=== PATIENT | female | born 1985 | race Hispanic/Latino ===

== ENCOUNTER 2024-03-22 13:34 | Emergency (ER) | payer SELFPAY ==
[2024-03-22 13:36] VITALS: BP 134/71; PULSE 79; RESP 18; TEMP 35.8; O2SAT 100
--- NOTE | 2024-03-22 15:22 | EX.ED.DYSGE1 ---
HPI History of Present Illness Chief Complaint: Complaint Informant: patient and spouse/S.O. Onset/Context/Timing Onset: Days (5) Context: Gradual Onset Timing: Continuous Quality: Cramping Location: Lower abdomen Worsened by: Nothing Relieved by: Nothing Narrative Narrative: Patient presents with lower abdominal pain and urinary tract infection for the past few days. states that the patient was seen here 4 days ago and was diagnosed with urinary tract infection. Patient was started on Keflex at that time states that patient was still having discomfort 3 days ago and went to [facility]. Patient had a CAT scan there which was normal. Patient was given hydrocodone for her pain. Patient has had minimal improvement despite taking antibiotics and analgesics. PFSH PFSH Medical History no medical history no medical history Home Medications nitrofurantoin monohydrate/macrocrystals 100 mg capsule 100 mg PO Q12 #10 CAPSULES 03/22/24 [Rx Last Taken Unknown] Allergy/AdvReac Type Severity Reaction Status Date / Time No Known Allergies Allergy Verified 03/22/24 13:36 Surgical History no surgical history no surgical history Social History Smoking Status: Never smoker ROS ROS ED Constitutional Constitutional ED: Reports chills; Denies fever(s) Eyes Eyes: Denies blurry vision or change in vision ENT ENT ED: Denies rhinorrhea or sore throat Cardiovascular Cardiovascular: Denies chest pain or palpitations Respiratory/Chest Respiratory/Chest: Denies cough or dyspnea Gastrointestinal Gastrointestinal: Reports constipation and nausea; Denies vomiting Genitourinary Genitourinary ED: Reports dysuria; Denies hematuria Musculoskeletal Musculoskeletal: Reports back pain; Denies neck pain Integumentary Denies abscess or rash Neurologic Neurologic: Denies headache(s) or weakness Allergic/Immunologic Allergic/Immunologic ED: Denies mouth swelling or urticaria EXAM Physical Exam Const Vital Signs: 03/22/24 13:36 03/22/24 15:35 03/22/24 17:00 Temperature 96.4 F L Temperature Source Temporal Pulse Rate 79 88 78 Respiratory Rate 18 16 16 Blood Pressure 134/71 H 112/65 135/78 H Blood Pressure Mean 92 80 97 Pulse Ox 100 97 97 Oxygen Delivery Method Room Air Room Air Room Air Positive well nourished and well developed General Appearance ED: well developed and NAD HEENT Reports moist mucous membranes Neck supple and no JVD Resp normal respiratory effort and clear to auscultation bilaterally Cardio regular rate and regular rhythm GI non-distended Palpation: soft and tender LLQ, RLQ and suprapubic; Negative for guarding or rebound tenderness present Neuro oriented x3, CN's II-XII intact bilaterally and no sensory deficits noted Sensorium / Orientation: alert Motor Exam: strength 5/5 throughout Psych mental status grossly normal MDM MDM MDM Narrative Medical decision making narrative: Differential diagnosis includes urinary tract infection, ectopic , and pyelonephritis. CBC will be obtained to assess for leukocytosis and anemia. Basic metabolic profile will be obtained to assess for electrolyte abnormality and renal function. Urinalysis will be obtained to assess for urinary tract infection and hematuria. Serum hCG will be obtained to assess for . Since patient had a recent CT scan done 3 days ago, I do not feel that this is necessary to be repeated again today. History & Record Review Additional record(s) reviewed:: No prior records Lab Data Attestation: I reviewed the patient's lab results. Lab results narrative: CBC was reviewed today. White blood cell count was within normal limits. There is a mild anemia with a hemoglobin of 11.2 and hematocrit of 36.4. Platelets are normal. Basic metabolic profile was reviewed and was within normal limits. Urinalysis was reviewed. There are positive nitrites. Leukocyte esterase was 25. There are 05 white blood cells and no bacteria seen. Urine culture was obtained. Labs: Laboratory Results - last 24 hr 03/22/24 03/22/24 15:30 15:33 WBC 6.9 RBC 4.63 Hgb 11.2 L Hct 36.4 L MCV 78.6 L MCH 24.2 L MCHC 30.8 L RDW Std Deviation 42.5 RDW Coeff of Jesus 14.8 H Plt Count 349 MPV 9.1 Immature Gran % (Auto) 0.300 Neut % (Auto) 64.3 Lymph % (Auto) 29.7 [place] % (Auto) 5.2 Eos % (Auto) 0.1 Baso % (Auto) 0.4 Absolute Neuts (auto) 4.4 Absolute Lymphs (auto) 2.05 Nucleated RBC % 0 Sodium 137 Potassium 4.0 Chloride 106 Carbon Dioxide 27.0 Anion Gap 4 L BUN 5 L Creatinine 0.74 Est GFR (MDRD) Af Amer 114 Est GFR (MDRD) Non-Af 94 BUN/Creatinine Ratio 6.7 L Glucose 95 Calcium 9.0 Urine Color Yellow Urine Clarity Clear Urine pH 6.5 Ur Specific [place] 1.005 Urine Protein 30 H Urine Glucose (UA) Normal Urine Ketones Negative Urine Occult Blood Negative Urine Nitrite Positive H Urine Bilirubin 1 H Urine Urobilinogen 4 H Ur Leukocyte Esterase 25 H Urine RBC 0 SEEN Urine WBC 0-5 SEEN Ur Squamous Epith Cells 0-5 SEEN Urine Bacteria 0 SEEN Urine Mucus 0 SEEN Treatment and Re-Evaluation :: states that patient was seen here 4 days ago. I do not find any record of this in the computer. Therefore, I cannot locate any culture results or if this was performed. Patient was given a dose of Rocephin. Patient was given a dose of morphine. I was able to find the patient's previous visit from 03/19/2024. There was a urine culture which indicated resistance to cefoxitin. Because of this, patient was switched to Macrobid which it is sensitive to. Patient was given her first dose here. Patient was instructed to stop taking the Keflex. Patient was instructed to follow-up with her primary care physician in 5 to 7 days. Patient and family understood and were agreeable with the plan. All questions were answered. Discharge Plan Triage Chief Complaint: Complaint ED Provider: Edu Vargas Dx/Rx/DC Orders Clinical Impression: Urinary tract infection, Pelvic pain Instructions: ED Cystitis Female Adult Prescriptions: New nitrofurantoin monohyd/m-cryst [nitrofurantoin monohyd/m-cryst] 100 mg capsule 100 mg PO Q12 Qty: 10 0RF Disposition Disposition: Home, Self Care
[2024-03-22 15:35] VITALS: BP 112/65; PULSE 88; RESP 16; O2SAT 97
[2024-03-22 15:38] LABS: Bacteria 0 SEEN /hpf (None Seen); Mucous, Urine 0 SEEN /hpf (<or=2+); Red Blood Cells-Urine 0 SEEN /hpf (0-5)
[2024-03-22 15:38] LABS: Absolute Lymphocyte Count 2.05 X10^3/uL (0.83-4.51); Absolute Neutrophil Count 4.4 X10^3/uL (2.0-7.7); Basophil# 0.03 X10^3/uL; Basophil% 0.4 % (0-1); Eosinophil# 0.01 X10^3/uL; Eosinophils% 0.1 % (0-5); Hematocrit 36.4 % (37-47); Hemoglobin 11.2 g/dL (12.0-15.0); Lymphocyte # 2.05 X10^3/ul (0.83-4.51); Lymphocyte % 29.7 % (19-41); Mean Corp Hgb Conc 30.8 g/dL (32-36); Mean Corpuscular Hgb 24.2 pg (27.0-32.0); Mean Corpuscular Volume 78.6 fL (81-99); Mean Platelet Vol. 9.1 fl (6.2-12.0); Monocyte# 0.36 X10^3/uL; Monocyte% 5.2 % (0-10); NRBC Flagged by Analyzer 0 % (0-5); Neutrophil # 4.44 X10^3/uL (2.7-7.7); Neutrophil % 64.3 % (47-70); Platelet Count 349 K/mm3 (150-450); RBC Distribution Width CV 14.8 % (11.6-14.6); RBC Distribution Width SD 42.5 fl (35.1-43.9); Red Blood Count 4.63 M/mm3 (4.2-5.4); White Blood Count 6.9 K/mm3 (4.4-11.0)
[2024-03-22 15:53] LABS: Anion Gap 4 (5-15); BUN 5 mg/dL (7-18); BUN/Creat Ratio 6.7 RATIO (10-20); Chloride 106 mmol/L (98-107); Creatinine, Serum 0.74 mg/dL (0.55-1.02); EST Glomerular Filtration Rate 94 mL/min (>60); Est Glom Filt Rate - Afr Amer 114 mL/min (>60); Glucose 95 mg/dL (74-106); Sodium Level 137 mmol/L (136-145)
[2024-03-22 16:14] LABS: Color, Urine Yellow (Yellow); Glucose, Dipstick Normal (Normal); Ketone-Dipstick Negative (Negative); Leukocyte Esterase-Dipstick 25 /ul (Negative); Nitrite-Dipstick Positive (Negative); Occult Blood-Urine Negative /ul (Negative); Protein-Dipstick 30 mg/dl (Negative); Specific Gravity, Urine 1.005 (1.002-1.030); Urine Bilirubin Dipstick 1 mg/dL (Negative); Urine Clarity Clear (Clear); Urine Urobilinogen 4 mg/dl (Normal); Urine pH 6.5 (5.0 - 8.0)
[2024-03-22 16:23] LABS: Squamous Epithelial Cells - UA 0-5 SEEN /hpf (5-10); White Blood Cells 0-5 SEEN /hpf (0-5)
[2024-03-22 17:00] VITALS: BP 135/78; PULSE 78; RESP 16; O2SAT 97
[2024-03-22] MEDS: Morphine 4 MG/ML Syringe IV (17:49)
[2024-03-22] MEDS: Ceftriaxone 1 GM/50 ML BAG IV (18:18)
[2024-03-22] MEDS: Nitrofurantoin Macrocrystals 100 MG Capsule PO (18:18)
[2024-03-22 18:23] LABS: Internal QC Validated? YES +Cl - CLEAR BKGD; Pregnancy, Serum, hCG Quali. NEGATIVE Negative
[2024-03-22 18:45] VITALS: BP 146/75; PULSE 91; RESP 20; TEMP 36.4; O2SAT 97
== END 2024-03-22 18:46 | disposition home or self-care (01) ==
PROVIDERS: Emergency Provider Emergency Medicine; Visit Provider Emergency Medicine
DX: N39.0 Urinary tract infection, site not specified (principal); Z16.29 Resistance to other single specified antibiotic
CPT/HCPCS: 80048; 81001; 84703; 85025; 87086; 96365; 96375; 99283; A4216

== ENCOUNTER 2025-10-21 14:00 | Emergency (ER) | payer OTHER, SELFPAY ==
[2025-10-21 14:00] VITALS: BP 130/77; PULSE 81; RESP 16; TEMP 36.6; O2SAT 100; BMI 37.5
--- NOTE | 2025-10-21 15:20 | EDS_ITS ---
HPI History of Present Illness Chief Complaint: Upper Extremity Injury Narrative Narrative: Patient is a 40-year-old female presenting to the emergency department for right arm pain for the past 2 weeks. Patient is Bulgarian-speaking and industrial engineering analyst was offered however at bedside states that the patient and himself feel comfortable with him translating. 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 States she does a lot of cleaning above her head as well and she noticed that her right arm was hurting. She describes it as a shooting like pain from her lower neck down to her elbow. She denies any falls or trauma to her arm. Denies any arm swelling. Denies any arm numbness or weakness. Denies any other injuries. She states that she is taken Aleve a few times to help with the pain. [facility] Home Medications Medication Instructions Recorded Last Taken Type nitrofurantoin 100 mg PO Q12 #10 CAPSULES 0 03/22/24 Unknown Rx monohydrate/macrocrystals 100 mg capsule cyclobenzaprine 5 mg tablet 5 mg PO TID PRN muscle spa sm #14 10/21/25 Unknown Rx tabs Allergy/AdvReac Type Severity Reaction Status Date / Time No Known Allergies Allergy Verified 03/22/24 13:36 Social History housing: house Smoking Status: Never smoker ROS ROS ED ROS Narrative see HPI EXAM Physical Exam Narrative Exam Narrative: Vital signs: Reviewed General: Alert and orientedx3. No acute distress HEENT: Head is normocephalic and atraumatic, sinuses nontender, pupils equal round and reactive. Nares are patent. Oropharynx and throat exams normal. Neck: Supple without lymphadenopathy nontender. No midline cervical spinal tenderness to palpation. Normal full active ROM of neck. Cardiovascular: Regular rate and rhythm, no murmurs. No rubs or gallops. Normal S1 and S2 Respiratory: Clear to auscultation bilaterally. No wheezes, rales, rhonchi Abdominal: Soft and nontender. Normal bowel sounds. No guarding or rebound. Nonsurgical abdomen Extremities: No tenderness to palpation of the right sided clavicle, shoulder, humerus, elbow, forearm, wrist or hand. Tenderness along the trapezius. Radial pulse intact. Sensation intact in axillary, median, radial and ulnar nerve distributions. No arm swelling, erythema or warmth. Full active ROM intact at shoulder, elbow and wrist. Able to fully adduct and abduct without difficulty. Skin: No rash or redness to neck or arm. Neurological: Cranial nerves II through XII are grossly intact. Normal strength and sensation. Normal cerebellar function The rest of the physical exam is unremarkable Const Vital Signs: 10/21/25 14:00 Temperature 97.9 F Temperature Source Temporal Pulse Rate 81 Respiratory Rate 16 Blood Pressure 130/77 H Blood Pressure Mean 94 Pulse Ox 100 Oxygen Delivery Method Room Air MDM MDM MDM Narrative Medical decision making narrative: Patient is a 40-year-old female presenting to the emergency department for right arm pain for the past 2 to 3 weeks. Patient was seen and examined. Vitals are stable. Patient resting in bed comfortably in no acute distress. Patient had no injury to the arm or shoulder. There is no obvious deformities. Patient has full active range of motion of all right arm joints. Do not think there is reason for x-ray imaging at this time. She has no erythema, warmth or evidence of cellulitis or abscess. No arm swelling to suggest a DVT and no risk factors. 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 There is also some mild tenderness to palpation of the trapezius. Discussed RICE therapy at home extensively with patient. Recommended icing and stretching. Recommended NSAIDs and will prescribe a short course of Flexeril. Patient does not have a primary care doctor and will be given 1 for follow-up. Patient discharged from the Emergency Department. I do not feel that the patient's evaluation reveals any acute reason for admission at this time. I instructed them to either follow-up with their primary care physician or promptly return to the Emergency Department for reevaluation should symptoms worsen or new symptoms develop. I explained what symptoms would indicate the need to return to the emergency department. Shared decision making was used. The patient voiced understanding of the yudelka tment plan and is agreeable with it. Clinical impression Musculoskeletal arm pain History & Record Review Discussion w/independent historian: Patient and Significant other Discharge Plan Triage Chief Complaint: Upper Extremity Injury ED Provider: Kristina Henderson Dx/Rx/DC Orders Clinical Impression: Arm pain, musculoskeletal Instructions: Self-Care for Strains and Sprains, ED RICE Prescriptions: New cyclobenzaprine 5 mg tablet 5 mg PO TID PRN (Reason: muscle spasm) Qty: 14 0RF No Action nitrofurantoin monohyd/m-cryst [nitrofurantoin monohyd/m-cryst] 100 mg capsule 100 mg PO Q12 Qty: 10 0RF Primary Care Provider: Care Physician,No Primary Referrals: Sylvia Hernandez MD [Med Staff - Legislative Aide, Internal Medicine] - As soon as possible Care Physician,No Primary [Primary Care Provider, Medical] Activity Restrictions/Additional Instructions: Please refer to the information RICE therapy for home. Follow-up with the primary care doctor soon as possible. You can take the Flexeril every 8 hours for muscle tightness. Do not drive or operate heavy machinery while taking this medication. Your evaluation in the Emergency Department did not reveal any acute reason for admission. However, I want to emphasize that you may be early in the course of a disease process or illness even if it is not present. For this reason you should follow-up within 24 hours for reevaluation with either your primary care physician or if necessary back here in the Emergency Department. You should return to the Emergency Department immediately if your symptoms worsen or new symptoms develop. Print Language: Bulgarian Disposition Disposition: Home, Self Care Discharge Date/Time: 10/21/25 16:13
--- OUTSIDE RECORDS SUMMARY | 2025-10-21 15:47 | XMS RPT_ITS | CCD ---
Author Organization [facility] Care Team Providers Care Keyboard Specialist Name Role Phone Liz Yun Unavailable Unavailable Liz Yun Unavailable Unavailable Phill Sibley Primary Care Provider Phill Sibley Primary Care Provider Phill Sibley Primary Care Provider Phill Sibley Primary Care Provider PHYSICIAN, NONE Primary Care Physician Unavailab [facility] Primary Care Physician Unavail able PHYSICIAN, NONE Primary Care Unavailable ANGELA FALL MD Attending Unavail able GELACIO PAULINO Attending Unavailable Edu Vargas Attending Unavailable Phill Sibley CNP Primary Care Provider CLARIBEL HOOD Referring Unavailable IZZY LANGSTON Attending Unavailable PHILL SIBLEY Primary Care Unavailable PHILL SIBLEY Primary Care Unavailable CLARIBEL HOOD Referring Unavailable CLARIBEL HOOD Attending Unavailable [facility] Referring Nicole vailable PHILL SIBLEY Primary Care Unavailable Medications Current Medications Medication Drug Class(es) Dates Sig (Normalized) Sig (Original) acetaminophen 325 mg / HYDROcodone bitartrate 5 mg oral tablet (1 source) Opioid Agonist Start: 03-20-2024 End: 03-23-2024 take 1 tablet by mouth every six hours as needed for pain Franklin 325- 5 mg oral tablet Dose = 1 tab(s), Oral, q6h, PRN as needed for pain, X 3 day(s), # 12 tab(s), 0 Refill(s), Abdominal pain, 90.9 Start Date: 03/20/24 Stop Date: 03/23/24 Status: Ordered Ethinyl Estradiol / norgestimate (11 sources) Progestin, Estrogen Start: 01-13-2025 End: 03-09-2026 take 1 tablet by mouth once daily norgestimate 0.25 mg-ethinyl estradiol 35 mcg (SPRINTEC) 0.25-35 mg-mcg per tablet Indications: Surveillance for control, oral contraceptives Take 1 tablet by mouth once daily. 84 tablet 4 01/13/2025 03/09/2026 Active Start: 11-15-2024 End: 01-13-2025 take 1 tablet by mouth once daily norgestimate 0.25 mg-ethinyl estradiol 35 mcg (SPRINTEC) 0.25-35 mg-mcg per tablet Indications: Surveillance for control, oral contraceptives Take 1 tablet by mouth once daily. 84 tablet 11/15/2024 01/13/2025 Discontinued Start: 11-15-2024 End: 01-09-2026 take 1 tablet by mouth once daily norgestimate 0.25 mg-ethinyl estradiol 35 mcg (SPRINTEC) 0.25-35 mg-mcg per tablet Indications: Surveillance for control, oral contraceptives Take 1 tablet by mouth once daily. 84 tablet 11/15/2024 01/09/2026 Active Start: 10-20-2023 End: 11-15-2024 take 1 tablet by mouth once daily norgestimate 0.25 mg-ethinyl estradiol 35 mcg (SPRINTEC) 0.25-35 mg-mcg per tablet Indications: Surveillance for control, oral contraceptives Take 1 tablet by mouth once daily. 84 tablet 4 10/20/2023 11/15/2024 Discontinued Start: 10-20-2023 End: 12-13-2024 take 1 tablet by mouth once daily norgestimate 0.25 mg-ethinyl estradiol 35 mcg (SPRINTEC) 0.25-35 mg-mcg per tablet Indications: Surveillance for control, oral contraceptives Take 1 tablet by mouth once daily. 84 tablet 4 10/20/2023 12/13/2024 Active Start: 10-17-2023 End: 10-20-2023 take 1 tablet by mouth once daily norgestimate 0.25 mg-ethinyl estradiol 35 mcg (SPRINTEC) 0.25-35 mg-mcg per tablet Indications: Surveillance for control, oral contraceptives Take 1 tablet by mouth once daily. 84 tablet 4 10/17/2023 10/20/2023 Discontinued Start: 10-17-2023 End: 12-10-2024 take 1 tablet by mouth once daily norgestimate 0.25 mg-ethinyl estradiol 35 mcg (SPRINTEC) 0.25-35 mg-mcg per tablet Indications: Surveillance for control, oral contraceptives Take 1 tablet by mouth once daily. 84 tablet 4 10/17/2023 12/10/2024 Active Start: 01-20-2023 End: 10-17-2023 take 1 tablet by mouth once daily norgestimate 0.25 mg-ethinyl estradiol 35 mcg (SPRINTEC) 0.25-35 mg-mcg per tablet Take 1 tablet by mouth once daily. 28 tablet 14 01/20/2023 10/17/2023 Discontinued Comment on above: Take 1 tablet by sari once daily. ibuprofen 600 mg oral tablet (12 sources) Nonsteroidal Anti-inflammatory Drug Start: 03-20-2024 End: 03-30-2024 ibuprofen 600 mg oral tablet Dose : 600 mg = 1 tab(s), Oral, q8h, X 10 day(s), # 30 tab(s), 0 Refill(s), 03/30/24 9:31:00 AM EDT Start Date: 03/20/24 Stop Date: 03/30/24 Status: Ordered ibuprofen (MOTRI N ORAL) Take by mouth. Active ibuprofen (MOTRI N ORAL) Take by mouth. 0 Active Comment on above: Take by mouth. nitrofurantoin, macrocrystals 25 mg / nitrofurantoin, monohydrate 75 mg oral capsule (1 source) Nitrofuran Antibacterial Start: 03-22-20 take 100 mg by mouth every twelve hours Nitrofurantoin Monohyd/M-Cryst Active 100 MG PO EVERY 12 HOURS March 22, 2024 12:00am ondansetron 4 mg disintegrating oral tablet (2 sources) Serotonin-3 Receptor Antagonist Start: 03-20-20 End: 03-24-20 ondansetron 4 mg oral tablet, disintegrating Dose : 4 mg = 1 tab(s), Oral, q6h, X 4 day(s), # 16 tab(s), 0 Refill(s), 03/24/24 9:31:00 AM EDT Start Date: 03/20/24 Stop Date: 03/24/24 Status: Ordered Start: 01-30-2019 take 1 tablet by sari th every four to six hours as needed for nausea and vomiting Zofran 4 mg oral tablet See Instructions, PRN As needed for nausea and vomiting, 1 tab(s) PO q4-6h prn, # 10 tab(s), 0 Refill(s) Start Date: 01/30/19 Status: Ordered phenazopyridine hydrochloride 200 mg oral tablet (1 source) Start: 03-20-2024 phenazopyridin e Dose : 200 mg =, Oral, TIDPC, 0 Refill(s) Start Date: 03/20/24 Status: Ordered Twymqmil-Dq-Ezp-Fe-FA tab (20 sources) Start: 01-15-2022 take 1 tablet by mouth once daily Qdqmozpo-Ms-Joi-Fe-FA tab Take 1 tablet by mouth once daily. 30 tablet 5 01/15/2022 Active Comment on above: Take 1 tablet by sari once daily. Completed/Discontinued Medications Medication Drug Class(es) Dates Sig (Normalized) Sig (Original) aspirin 81 mg delayed release oral tablet (15 sources) Platelet Aggregation Inhibitor, Nonsteroidal Anti-inflammatory Drug Start: 01-15-2022 End: 07-24-2022 take 1 tablet by mouth once daily aspirin, enteric coated (ECOTRIN LOW STRENGTH) 81 mg EC tablet Take 1 tablet by mouth once daily. 30 tablet 5 01/15/2022 07/24/2022 Discontinued Comment on above: Take 1 tablet by sari th once daily. Keflex (1 source) Cephalosporin Antibacterial Start: 03-20-2024 Keflex Dose : 500 mg =, Oral, BID, 0 Refill(s), 90.9 Start Date: 03/20/24 Status: Ordered ferrous sulfate 325 mg oral tablet (16 sources) Start: 01-15-2022 End: 07-24-2022 take 1 tablet by mouth twice daily at mealtime ferrous sulfate 325 mg (65 mg iron) tablet Take 1 tablet by mouth twice daily with meals. 60 tablet 5 03/17/2022 07/24/2022 Discontinued Comment on above: Take 1 tablet by sari th twice daily with meals. Problems Active Problems Problem Classification Problem Date Documented Date Episodic/Chronic Abdominal pain (9 sources) Generalized abdominal pain; Translations: [Generalized abdominal pain] Onset: 03-20-2024 10-17-2023 Episodic Contraceptive and procreative management (6 sources) Subcutaneous contraceptive implant present; Translations: [Encounter for surveillance of implantable subdermal contraceptive] Episodic Headache; including migraine (20 sources) Migraine without aura, not refractory ; Translations: [Migraine without aura, not intractable, without status migrainosus] Onset: 11-08-2018 11-08-2018 Chronic Immunizations and screening for infectious disease (3 sources) Vaccination needed; Translations: [Encounter for immunization] Episodic Other complications of (2 sources) Anemia during - baby not yet delivered; Translations: [Anemia complicating , second trimester] Chronic Other complications of (4 sources) Obesity; Translations: [Obesity complicating , unspecified trimester] Chronic Other complications of (1 source) Maternal obesity complicating , childbirth and the puerperium, antepartum; Translations: [Obesity complicating , second trimester] Chronic Other complications of (4 sources) Multigravida of advanced maternal age; Translations: [Supervision of elderly multigravida, third trimester] Episodic Other complications of (1 source) Excessive growth affecting management of mother; Translations: [Maternal care for excessive growth, third trimester, not applicable or unspecified] Episodic Other complications of (1 source) Uterine size for dates discrepancy; Translations: [Uterine size-date discrepancy, third trimester] Episodic Other female genital disorders (1 source) Vaginal irritation; Translations: [Other specified noninflammatory disorders of vagina] Episodic Other injuries and conditions due to external causes (1 source) Foreign body of alimentary tract, part unspecified, initial encounter; Translations: [Foreign body of alimentary tract, part unspecified, initial encounter] Onset: 08-09-2023 Episodic Other and delivery including normal (3 sources) Normal ; Translations: [Encounter for supervision of other normal , second trimester] Episodic Other screening for suspected conditions (not mental disorders or infectious disease) (3 sources) Finding related to ; Translations: [Encounter for suspected problem with growth ruled out] Episodic Residual codes; unclassified (1 source) Gestation period, 21 weeks; Translations: [21 weeks gestation of ] Episodic Residual codes; unclassified (1 source) Gestation period, 25 weeks; Translations: [25 weeks gestation of ] Episodic Residual codes; unclassified (2 sources) Gestation period, 27 weeks; Translations: [27 weeks gestation of ] Episodic Residual codes; unclassified (1 source) Gestation period, 29 weeks; Translations: [29 weeks gestation of ] Episodic Residual codes; unclassified (1 source) Gestation period, 31 weeks; Translations: [31 weeks gestation of ] Episodic Residual codes; unclassified (2 sources) Gestation period, 36 weeks; Translations: [36 weeks gestation of ] Episodic Residual codes; unclassified (1 source) Gestation period, 37 weeks; Translations: [37 weeks gestation of ] Episodic Residual codes; unclassified (1 source) Gestation period, 38 weeks; Translations: [38 weeks gestation of ] Episodic Unclassified (1 source) Unknown / UNK(Unknown) Onset: 06-24-2017 Urinary tract infections (2 sources) Urinary tract infectious disease; Translations: [Urinary tract infection, site not specified] Onset: 03-28-2024 03-22-2024 Episodic Past or Other Problems Problem Classification Problem Date Documented Da te Episodic/Chronic Diabetes or abnormal glucose tolerance complicating ; childbirth; or the puerperium (18 sources) Impaired glucose tolerance in ; Translations: [Abnormal glucose complicating ] Onset: 04-25-2022 Resolved: 08-26-2022 04-25-2022 Episodic Other complications of (15 sources) H/O: ; Translations: [Supervision of with other poor reproductive or obstetric history, second trimester] Onset: 01-15-2022 01-15-2022 Episodic Other complications of (20 sources) History of gestational diabetes mellitus; Translations: [Supervision of with other poor reproductive or obstetric history, unspecified trimester] Onset: 01-15-2022 Resolved: 08-26-2022 01-15-2022 Episodic Other complications of (20 sources) Abnormal placenta affecting management of mother; Translations: [Other malformation of placenta, unspecified trimester] Onset: 03-17-2022 Resolved: 08-26-2022 03-17-2022 Episodic Other complications of (5 sources) Supervision of with other poor reproductive or obstetric history, second trimester; Translations: [Supervision of high-risk with other poor reproductive history] Onset: 01-15-2022 Resolved: 08-26-2022 08-26-2022 Episodic Residual codes; unclassified (20 sources) Family history of cleft palate; Translations: [Family history of other congenital malformations, deformations and chromosomal abnormalities] Onset: 01-15-2022 Resolved: 08-26-2022 01-15-2022 Episodic Residual codes; unclassified (20 sources) Family history of malignant neoplasm of liver; Translations: [Family history of malignant neoplasm of digestive organs] Onset: 01-15-2022 01-15-2022 Episodic Unclassified (1 source) 6 WK PP VAG DEL 05/12 Onset: 06-24-2017 Results Test Name Value Interpretation Reference Range Facility [facility] 02-06-2025 CNOV Office Visit (OBGYWM) ---- CHULA MEZA ([id number]) 1985 F [facility] Date Time Provider Department 02/06/25 8:40 AM IZZY LANGSTON During your visit today, we recorded the following information about you: Blood pressure Weight 138/80 96.6 kg Izzy Langston MD 02/06/2025 12:29 PM Signed Chula Hannahanibal Digna Aguilera is a 39 year old female who presents for problem visit HPI: F/u for US. able to translate. Had an US for abd/pelvis pain since of last child. Occurs when lying on her stomach or lifting. Not associated with periods. Vaginal deliveries but did have an appendectomy and cholecystectomy. Us is normal and shows only a small fibroid. Discussed likely abdominal wall source for the pain. Possible small hernia or diastasis. Avoid lifting heavy objects. Can wear a compression shirt to help with support. OB History Gravida6 Para5 Term4 Preterm1 AB1 Living4 SAB1 IAB0 Ectopic0 Multiple0 Live Births5 Comment: No surgeries for missed abs and 3 vaginal deliveries one passed at delivery [employer] M[employer] History LMP: 01/12/2025, Having periods Age at Menarche: 15 Age at First : Age at Menopause: [employer] M[employer] History Comments: Sexual Activity: Yes; Male Contraception: Pill Menstrual Tracking History Flowsheet Row Office Visit from 01/13/2025 in OB/Gynecology Period Cycle (Days) 28 Period Duration (Days) 5 Menstrual Flow Moderate PAST MEDICAL HISTORY Diagnosis Date Gestational diabetes Trichinosis PAST SURGICAL HISTORY Procedure Laterality Date APPENDECTOMY CHOLECYSTECTOMY FAMILY HISTORY Problem Relation Age of Onset No Known Problems Mother No Known Problems Father Social History Tobacco Use Smoking status: Never Passive exposure: Never Smokeless tobacco: Never Vaping Use Vaping status: Never Used Substance Use Topics Alcohol use: No Drug use: No Current Outpatient Medications Medication Sig norgestimate 0.25 mg-ethinyl estradiol 35 mcg (SPRINTEC) 0.25-35 mg-mcg per tablet Take 1 tablet by mouth once daily. ibuprofen (MOTRIN ORAL) Take by mouth. Lqmdlkgr-Tu-Sfs-Fe- FA tab Take 1 tablet by mouth once daily. (Patient not taking: Reported on 07/24/2022) No current facility-administer ed medications for this visit. Allergies As of Date: 02/06/2025 (No Known Allergies) Fully Assessed 01/13/2025 REVIEW OF SYSTEMS Abdomen: No bloating, early satiety, indigestion, or increased flatulence. No abdominal pain, nausea, vomiting, diarrhea, or constipation. Bladder: No dysuria, gross hematuria, urinary frequency, urinary urgency, or incontinence. Breast: No breast lumps, nipple d/c, overlying skin changes, redness or skin retraction. Expanded ROS: N/A Allergies and current medication updated:Yes SENSITIVE EXAM: The sensitive examination was discussed with the Patient or Patient's Authorized Lamp Inspector. As applicable, any other physician, advance practice provider, medical student, or other health professional student that will be observing or involved in the sensitive examination for educational or training purposes was discussed with the Patient or Authorized Lamp Inspector. The Patient or Authorized Lamp Inspector has agreed to proceed with the sensitive examination. (Sensitive examination includes inspection and/or palpation of the breasts, pelvis, prostate and anorectal regions). EXAM: LMP 01/12/2025 GENERAL: pleasant, female in no apparent distress HEENT: Normocephalic, atraumatic, mucus membranes moist, and no lesions NECK: full range of motion DERMATOLOGY: Normal, without lesions, non-icteric, and non-hirsute BREAST: deferred CHEST: Normal inspiratory effort ABDOMEN: Benign, soft, non-tender, no masses, and guarding Absent PELVIC: deferred BIMANUAL: deferred NEURO: alert and oriented x3,exam grossly non-focal EXTREMITIES: normal ASSESSMENT AND PLAN: Assessment AND Plan Abdominal wall pain Supportive belt or clothing Avoid heavy lifting Izzy Langston MD Referring Provider: CLARIBEL HOOD [[id number]] Allergies As of Date: 02/06/2025 (No Known Allergies) Date Reviewed: 02/06/2025 Reviewed by: Izyz Langston MD - Fully Assessed Reason for Visit: Follow Up [171] Primary Visit Diagnosis:Pelvic pain [R10.2] Other Visit Diagnosis:Abdominal wall pain [R10.9] Prescriptions as of 02/06/2025 - norgestimate 0.25 mg-ethinyl estradiol 35 mcg (SPRINTEC) 0.25-35 mg-mcg per tablet Take 1 tablet by mouth once daily. - ibuprofen (MOTRIN ORAL) Take by mouth. - Fckkvhfw-Ru-Pug-Fe- FA tab Take 1 tablet by mouth once daily. Problem List As Of Date 02/06/2025 Noted Resolved Migraine without aura and without status migrai*11/08/2018 Family history of cleft palate [Z82.79] 01/15/2022 08/26/2022 Family history of liver cancer [Z80.0] 01/15/2022 in prior , currently p (more content not included)... Normal [facility] 01-30-2025 Indication pelvic pain Impression Axial fibroid uterus that measures 73 mm x 39 mm x 61 mm. The largest fibroids are described below. Fibroid(s): Size 9 mm x 6 mm x 9 mm. Mean 8.1 mm. Vol 0.266 cm . Left lateral anterior wall. intramural Endometrium measures 6.1 mm. Arcuate endometrial contour. Both ovaries are visualized and appear normal with follicular change. No adnexal masses were observed. There is no free fluid visualized in the peritoneal cavity. Recommendations Follow up as clinically indicated. Menstrual History LMP on 01/19/2025. Contraception: none Method Transabdominal, transvaginal, 3D ultrasound examination, Color Doppler examination. View: Adequate visualization Uterus Uterus: Visualized Uterus position: axial Description of uterine malformations: arcuate Myometrium: heterogeneous Endometrium: homogenous Cervix details: cystic lesions identified suggesting superficial Nabothian cysts Uterus length 73 mm Uterus width 61 mm Uterus height 39 mm Uterus Vol 91.3 cm Endometrial thickness, total 6.1 mm Fibroids: Fibroids identified Uterine fibroid D1 9 mm Uterine fibroid D2 6 mm Uterine fibroid D3 9 mm Uterine fibroid mean 8.1 mm Uterine fibroid vol 0.266 cm Uterine fibroids findings: Left lateral anterior wall. intramural Right Ovary Rt ovary: Visualized Rt ovary morphology: premenopausal normal follicular Rt ovary D1 34 mm Rt ovary D2 15 mm Rt ovary D3 13 mm Rt ovary Vol 3.4 cm Left Ovary Lt ovary: Visualized Lt ovary morphology: premenopausal normal follicular Lt ovary D1 40 mm Lt ovary D2 18 mm Lt ovary D3 17 mm Lt ovary Vol 6.3 cm Cul de Sac Visualized. no free fluid visualized Performed By: Leanna Harden RDMS Read By: Lucy Brito M.D. MATERNAL MEDICINE [facility] US [facility] 01-27-2025 Radiology Study observation (narrative) [facility] CNOVon 01-13-2025 CNOV Office Visit (OBGYWM) ---- DIGNA AGUILERACHULA IMANI ([id number]) 1985 F [facility] Date Time Provider Department 01/13/25 9:40 AM CLARIBEL HOOD During your visit today, we recorded the following information about you: Blood pressure Weight Last Period 118/76 96.2 kg 01/12/25 Claribel Hood MD 01/13/2025 10:11 AM Signed Chula is a 39 year old who presents for an annual gynecologic exam. Patient reports pelvic pain since the of her last child. Still get period: Yes Bleeding amount bothersome: No Bleeding between periods: No Period symptoms: Cramps; Mood change Time with current partner: 8 years Number of lifetime partners: 3 control frequency: Always HPV vaccine: Unsure; HPV:negative 2021 Last pap smear: 2021 normal History of abnormal pap: Yes, history of abnormal PAP smears 2015 Bothersome pelvic pain: Yes Last mammogram: never OB History Gravida6 Para5 Term4 Preterm1 AB1 Living4 SAB1 IAB0 Ectopic0 Multiple0 Live Births5 Comment: No surgeries for missed abs and 3 vaginal deliveries one passed at delivery [employer] History LMP: 01/12/2025, Having periods Age at Menarche: 15 Age at First : Age at Menopause: [employer] M[employer] History Comments: Sexual Activity: Yes; Male Contraception: Pill Menstrual Tracking History Flowsheet Row Office Visit from 01/13/2025 in OB/Gynecology Period Cycle (Days) 28 Period Duration (Days) 5 Menstrual Flow Moderate PAST MEDICAL HISTORY Diagnosis Date Gestational diabetes Trichinosis PAST SURGICAL HISTORY Procedure Laterality Date APPENDECTOMY CHOLECYSTECTOMY FAMILY HISTORY Problem Relation Age of Onset No Known Problems Mother No Known Problems Father SOCIAL HISTORY Social History Tobacco Use Smoking status: Never Passive exposure: Never Smokeless tobacco: Never Vaping Use Vaping status: Never Used Substance Use Topics Alcohol use: No Drug use: No REVIEW OF SYSTEMS Abdomen: No abdominal pain, nausea, vomiting, diarrhea, or constipation. No bloating, early satiety, indigestion, or increased flatulence. Bladder: No dysuria, gross hematuria, urinary frequency, urinary urgency, or incontinence. Breast: No breast lumps, nipple d/c, overlying skin changes, redness or skin retraction. Allergies and current medication updated:Yes SENSITIVE EXAM: The sensitive examination was discussed with the Patient or Patient's Authorized Lamp Inspector. As applicable, any other physician, advance practice provider, medical student, or other health professional student that will be observing or involved in the sensitive examination for educational or training purposes was discussed with the Patient or Authorized Lamp Inspector. The Patient or Authorized Lamp Inspector has agreed to proceed with the sensitive examination. (Sensitive examination includes inspection and/or palpation of the breasts, pelvis, prostate and anorectal regions). EXAM: BP 118/76 Wt 212 lb (96.2kg) LMP 01/12/2025 GENERAL: pleasant, female in no apparent distress BREAST: soft, non-tender, symmetric, no dominant mass, normal nipple-areolar complex, no lymphadenopathy, and no nipple discharge CHEST: Normal inspiratory effort ABDOMEN: soft, non-tender, and no masses PELVIC: patient declined due to menses BIMANUAL: patient declined due to menses RECTOVAGINAL: deferred. NEURO: alert and oriented x3,exam grossly non-focal EXTREMITIES: normal ASSESSMENT/PLAN: 1) Health maintenance: Pap/HPV up to date. Mammogram starting age 40. Nutrition, exercise and routine health maintenance exams reviewed. 2) Contraception: combined hormonal contraceptives - reviewed increased risks of stroke/DVT in women over 35. Contraceptive options reviewed and information provided. 3) STD screening: Declined STD check. 4) Follow up one year or sooner as needed 5) Pelvic pain - check pelvic US Claribel Hood MD Referring Provider: [facility] [[id number]] Allergies As of Date: 01/13/2025 (No Known Allergies) Date Reviewed: 01/13/2025 Reviewed by: Claribel Hood MD - Fully Assessed Reason for Visit: Yearly Exam [187] Primary Visit Diagnosis:Encounter for gynecological examination (general) (routine) without abnormal findings [Z01.419] Other Visit Diagnoses:Surveilla nce for control, oral contraceptives [Z30.41] Encounter for surveillance of contraceptive pills [Z30.41] Pelvic pain [R10.2] Order(s):norgestima te 0.25 mg-ethinyl estradiol 35 mcg (SPRINTEC) 0.25-35 mg-mcg per tabletTake 1 tablet by mouth once daily.Disp: 84 tabletRfl: 4 PELVIC US I [[id number]] Order #: [id number]: 1 FUTURE Prescriptions as of 01/13/2025 - norgestimate 0.25 mg-ethinyl estradiol 35 mcg (SPRINTEC) 0.25-35 mg-mcg per tablet Take 1 tablet by mouth once daily. - ibuprofen (MOTRIN ORAL) Take by mouth. - Sfqgtcrb-He-Gxy-Fe- (more content not included)... Normal [facility] Urine Cultureon 03-23-2024 URC Culture exhibits no growth. Normal [facility] Comment on above: Performed By: #### M [phone] #### [facility] [address] [place], [address] Absolute lymphocyte countOrd ered By: Edu Vargas on 03-22-2024 Lymphocytes Auto (Unsp spec) [#/Vol] 2.05 10*3/uL 0.83-4.51 [facility] Automated lymphocyte count a s percentage of total leukocytesOrdered By: Edu Vargas on 03-22-2024 Lymphocytes/100 WBC Auto (Unsp spec) 29.7 % 19-41 [facility] Basic Metabolic Profile (BMP )on 03-22-2024 BUN/CRE 6.7 RATIO Low 10-20 [facility] Comment on above: Performed By: #### L 500.2500, L100.0100 #### [facility] [address] [place], [address] CA,Total 9.0 mg/dL Normal 8.5-10.1 [facility] Comment on above: Performed By: #### L 500.2500, L100.0100 #### [facility] [address] [place], [address] Chloride [Moles/Vol] 106 mmol/L Normal 98-107 [facility] Comment on above: Performed By: #### L 500.2500, L100.0100 #### [facility] [address] [place], [address] CO2 [Moles/Vol] 27.0 mmol/L Normal 21.0-32.0 [facility] Comment on above: Performed By: #### L 500.2500, L100.0100 #### [facility] [address] [place], [address] Creatinine [Mass/Vol] 0.74 mg/dL Normal 0.55-1.02 [facility] Comment on above: Result Comment: The validity of the calculated GFR GFRAA in patients over 70 years has not been determined. Clinical correlation is essential. Performed By: #### L 500.2500, L100.0100 #### [facility] [address] [place], [address] EST GFR - AA 114 mL/min Normal >60 [facility] Comment on above: Result Comment: Afri can Maltese GFR Calc Performed By: #### L 500.2500, L100.0100 #### [facility] [address] [place], [address] GAP 4 Low 5-15 [facility] Comment on above: Performed By: #### L 500.2500, L100.0100 #### [facility] [address] [place], [address] GFR/1.73 sq M.predicted among non-blacks MDRD (S/P/Bld) [Vol rate/Area] 94 mL/min/{1.73_m2} Normal >60 [facility] Comment on above: Result Comment: Non- GFR Calc Performed By: #### L 500.2500, L100.0100 #### [facility] [address] [place], [address] Glucose [Mass/Vol] 95 mg/dL Normal 74-106 [facility] Comment on above: Performed By: #### L 500.2500, L100.0100 #### [facility] [address] [place], [address] Potassium [Moles/Vol] 4.0 mmol/L Normal 3.5-5.1 [facility] Comment on above: Performed By: #### L 500.2500, L100.0100 #### [facility] [address] [place], [address] Sodium [Moles/Vol] 137 mmol/L Normal 136-145 [facility] Comment on above: Performed By: #### L 500.2500, L100.0100 #### [facility] [address] [place], [address] Urea nitrogen [Mass/Vol] 5 mg/dL Low 7-18 [facility] Comment on above: Performed By: #### L 500.2500, L100.0100 #### [facility] [address] [place], [address] Basophil percentageOrdered B y: Edu Vargas on 03-22-2024 Basophil percentage 0-5 SEEN /hpf 0-5 [facility] Basophils/100 WBC (Bld) 0.4 % 0-1 [facility] Chloride [Moles/Vol] 106 mmol/L 98-107 [facility] Eosinophils/100 WBC (Bld) 0.1 % 0-5 [facility] Glucose [Mass/Vol] 95 mg/dL 74-106 [facility] Hemoglobin (Bld) [Mass/Vol] 11.2 g/dL 12.0-15.0 [facility] Monocytes/100 WBC (Bld) 5.2 % 0-10 [facility] Neutrophils (Bld) [#/Vol] 4.4 10*3/uL 2.0-7.7 [facility] Neutrophils/100 WBC (Bld) 64.3 % 47-70 [facility] Potassium [Moles/Vol] 4.0 mmol/L 3.5-5.1 [facility] Sodium [Moles/Vol] 137 mmol/L 136-145 [facility] WBC (Bld) [#/Vol] 6.9 10*3/uL 4.4-11.0 [facility] Bilirubin Test strip Ql (U)O rdered By: Edu Vargas on 03-22-2024 Bilirubin Ql (U) 1 mg/dL Negative [facility] Comment on above: COLOR OF URINE MAY A FFECT DIPSTICK RESULTS. CBC W/Diff, Automatedon -2 Absolute Lymph 2.05 X10 3/uL Normal 0.83-4.51 [facility] Comment on above: Performed By: #### L 500.2500, L100.0100 #### [facility] [address] [place], [address] Absolute Neut 4.4 X10 3/uL Normal 2.0-7.7 [facility] Comment on above: Performed By: #### L 500.2500, L100.0100 #### [facility] [address] [place], [address] Basophils/100 WBC (Bld) 0.4 % Normal 0-1 [facility] Comment on above: Performed By: #### L 500.2500, L100.0100 #### [facility] [address] [place], [address] Eosinophils/100 WBC (Bld) 0.1 % Normal 0-5 [facility] Comment on above: Performed By: #### L 500.2500, L100.0100 #### [facility] [address] [place], [address] Erythrocyte distribution width (RBC) [Ratio] 14.8 % High 11.6-14.6 [facility] Comment on above: Performed By: #### L 500.2500, L100.0100 #### [facility] [address] [place], [address] Hematocrit (Bld) [Volume fraction] 36.4 % Low 37-47 [facility] Comment on above: Performed By: #### L 500.2500, L100.0100 #### [facility] [address] [place], [address] Hemoglobin (Bld) [Mass/Vol] 11.2 g/dL Low 12.0-15.0 [facility] Comment on above: Performed By: #### L 500.2500, L100.0100 #### [facility] [address] [place], [address] IG% 0.300 Normal 0.0-0.9 [facility] Comment on above: Result Comment: IG% - Immature Granulocytes (promyelocytes, myelocytes and metamyelocytes) > 1% indicates that a LEFT SHIFT is Present. Performed By: #### L 500.2500, L100.0100 #### [facility] [address] [place], [address] Lymphocytes/100 WBC (Bld) 29.7 % Normal 19-41 [facility] Comment on above: Performed By: #### L 500.2500, L100.0100 #### [facility] [address] [place], [address] MCH (RBC) [Entitic mass] 24.2 pg Low 27.0-32.0 [facility] Comment on above: Performed By: #### L 500.2500, L100.0100 #### [facility] [address] [place], [address] MCHC (RBC) [Mass/Vol] 30.8 g/dL Low 32-36 [facility] Comment on above: Performed By: #### L 500.2500, L100.0100 #### [facility] [address] [place], [address] MCV (RBC) [Entitic vol] 78.6 fL Low 81-99 [facility] Comment on above: Performed By: #### L 500.2500, L100.0100 #### [facility] [address] [place], [address] Monocytes/100 WBC (Bld) 5.2 % Normal 0-10 [facility] Comment on above: Performed By: #### L 500.2500, L100.0100 #### [facility] [address] [place], [address] Neutrophils/100 WBC (Bld) 64.3 % Normal 47-70 [facility] Comment on above: Performed By: #### L 500.2500, L100.0100 #### [facility] [address] [place], [address] Nucleated RBC (Bld) [#/Vol] 0 10*3/uL Normal 0-5 [facility] Comment on above: Performed By: #### L 500.2500, L100.0100 #### [facility] [address] [place], [address] Platelet mean volume (Bld) [Entitic vol] 9.1 fL Normal 6.2-12.0 [facility] Comment on above: Performed By: #### L 500.2500, L100.0100 #### [facility] [address] [place], [address] Platelets (Bld) [#/Vol] 349 10*3/uL Normal 150-450 [facility] Comment on above: Performed By: #### L 500.2500, L100.0100 #### [facility] [address] [place], [address] RBC (Bld) [#/Vol] 4.63 10*6/uL Normal 4.2-5.4 [facility] Comment on above: Performed By: #### L 500.2500, L100.0100 #### [facility] [address] [place], [address] RDW SD 42.5 fl Normal 35.1-43.9 [facility] Comment on above: Performed By: #### L 500.2500, L100.0100 #### [facility] [address] [place], [address] WBC (Bld) [#/Vol] 6.9 10*3/uL Normal 4.4-11.0 [facility] Comment on above: Performed By: #### L 500.2500, L100.0100 #### [facility] [address] [place], [address] Determination of erythrocyte mean corpuscular volume (MCV)Ordered By: Edu Vargas on 03-22-2024 MCV (RBC) [Entitic vol] 78.6 fL 81-99 [facility] Emergency Department Summary on 03-22-2024 Emergency Department Summary [facility] Medical Records Department [address] [place] [address] Emergency Department Summary 03/22/24 MR#: [id number] Acct: [id number] Name: DIGNA AGUILERA Rep #: [id number] : 1985 38 From: Edu Vargas DO PCP: Status:REG ER Location: ED HPI History of Present Illness Chief Complaint: Complaint Informant: patient and spouse/S.O. Onset/Context/Timin g Onset: Days (5) Context: Gradual Onset Timing: Continuous Quality: Cramping Location: Lower abdomen Worsened by: Nothing Relieved by: Nothing Narrative Narrative: Patient presents with lower abdominal pain and urinary tract infection for the past few days. states that the patient was seen here 4 days ago and was diagnosed with urinary tract in fection. Patient was started on Keflex at that time states that patient was still having discomfort 3 days ago and went to [facility]. Patient had a CAT scan there which was normal. Patient was given hydrocodone for her pain. Patient has had minimal improvement despite taking antibiotics and analgesics. PFSH PFSH Medical History no medical history no medical history Home Medications nitrofurantoin monohydrate/macrocr ystals 100 mg capsule 100 mg PO Q12 #10 CAPSULES 03/22/24 [Rx Last Taken Unknown] Allergy/AdvReac Type Severity Reaction Status Date / Time No Known Allergies Allergy Verified 03/22/24 13:36 Surgical History no surgical history no surgical history Social History Smoking Status: Never smoker ROS ROS ED Constitutional Constitutional ED: Reports chills; Denies fever(s) Eyes Eyes: Denies blurry vision or change in vision ENT ENT ED: Denies rhinorrhea or sore throat Cardiovascular Cardiovascular: Denies chest pain or palpitations Respiratory/Chest Respiratory/Chest: Denies cough or dyspnea Gastrointestinal Gastrointestinal: Reports constipation and nausea; Denies vomiting Genitourinary Genitourinary ED: Reports dysuria; Denies hematuria Musculoskeletal Musculoskeletal: Reports back pain; Denies neck pain Integumentary Denies abscess or rash Neurologic Neurologic: Denies headache(s) or weakness Allergic/Immunologi c Allergic/Immunologi c ED: Denies mouth swelling or urticaria EXAM Physical Exam Const Vital Signs: 03/22/24 13:36 03/22/24 15:35 03/22/24 17:00 Temperature 96.4 F L Temperature Source Temporal Pulse Rate 79 88 78 Respiratory Rate 18 16 16 Blood Pressure 134/71 H 112/65 135/78 H Blood Pressure Mean 92 80 97 Pulse Ox 100 97 97 Oxygen Delivery Method Room Air Room Air Room Air Positive well nourished and well developed General Appearance ED: well developed and NAD HEENT Reports moist mucous membranes Neck supple and no JVD Resp normal respiratory effort and clear to auscultation bilaterally Cardio regular rate and regular rhythm GI non-distended Palpation: soft and tender LLQ, RLQ and suprapubic; Negative for guarding or rebound tenderness present Neuro oriented x3, CN's II-XII intact bilaterally and no sensory deficits noted Sensorium / Orientation: alert Motor Exam: strength 5/5 throughout Psych mental status grossly normal MDM MDM MDM Narrative Medical decision making narrative: Differential diagnosis includes urinary tract infection, ectopic , and pyelonephritis. CBC will be obtained to assess for leukocytosis and anemia. Basic metabolic profile will be obtained to assess for electrolyte abnormality and renal function. Urinalysis will be obtained to assess for urinary tract infection and hematuria. Serum hCG will be obtained to assess for . Since patient had a recent CT scan done 3 days ago, I do not feel that this is necessary to be repeated again today. History Record Review Additional record(s) reviewed:: No prior records Lab Data Attestation: I reviewed the patient's lab results. Lab results narrative: CBC was reviewed today. White blood cell count was within normal limits. There is a mild anemia with a hemoglobin of 11.2 and hematocrit of 36.4. Platelets are normal. Basic metabolic profile was reviewed and was within normal limits. Urinalysis was reviewed. There are positive nitrites. Leukocyte esterase was 25. There are 05 white blood cells and no bacteria seen. Urine culture was obtained. Labs: Laboratory Results - last 24 hr 03/22/24 03/22/24 15:30 15:33 WBC 6.9 RBC 4.63 Hgb 11.2 L Hct 36.4 L MCV 78.6 L MCH 24.2 L MCHC 30.8 L RDW Std Deviation 42.5 RDW Coeff of Jesus 14.8 H Plt Count 349 MPV 9.1 Immature Gran % (Auto) 0.300 Neut % (Auto) 64.3 Lymph % (Auto) 29.7 [place] % (Auto) 5.2 Eos % (Auto) 0.1 Baso % (Auto) 0.4 Absolute Neuts (a (more content not included)... Normal [facility] Erythrocyte distribution wid th ratioOrdered By: Edu Vargas on 03-22-2024 Erythrocyte distribution width (RBC) [Ratio] 14.8 % 11.6-14.6 [facility] Erythrocyte distribution wid th standard deviationOrdered By: Edu Vargas on 03-22-2024 Erythrocyte distribution width (RBC) [Entitic vol] 42.5 fL 35.1-43.9 [facility] Hematocrit Auto (Bld) [Volum e fraction]Ordered By: Edu Vargas on 03-22-2024 Hematocrit (Bld) [Volume fraction] 36.4 % 37-47 [facility] Immature granulocytes/100 WB C Auto (Bld)Ordered By: Edu Vargas on 03-22-2024 Immature granulocytes/100 WBC (Bld) 0.300 % 0.0-0.9 [facility] Comment on above: IG% - Immature Granu locytes (promyelocytes, myelocytes and metamyelocytes) > 1% indicates that a LEFT SHIFT is Present. Ketones Test strip Ql (U)Ord ered By: Edu Vargas on 03-22-2024 Ketones Ql (U) Negative Negative [facility] - Chemistry and C hemistry - challengeOrdered By: Edu Vargas 03-22-2024 CO2 [Moles/Vol] 27.0 mmol/L 21.0-32.0 [facility] Urea nitrogen/Creatinine [Mass ratio] 6.7 mg/mg 10-20 [facility] - Hematology and Cell countsOrdered By: Edu Vargas on 03-22-2024 MCH (RBC) [Entitic mass] 24.2 pg 27.0-32.0 [facility] MCHC (RBC) [Mass/Vol] 30.8 g/dL 32-36 [facility] Nucleated RBC/100 WBC (Bld) [Ratio] 0 % 0-5 [facility] Platelet mean volume (Bld) [Entitic vol] 9.1 fL 6.2-12.0 [facility] Platelets (Bld) [#/Vol] 349 10*3/uL 150-450 [facility] Mucus LM Ql (Urine sed)Order ed By: Edu Vargas on 03-22-2024 Mucus Ql (Urine sed) 0 SEEN /hpf [facility] Nitrite Test strip Ql (U)Ord ered By: Edu Vargas on 03-22-2024 Nitrite Ql (U) Positive Negative [facility] No Panel InformationOrdered By: Edu Vargas on 03-22-2024 Urine RBC 0 SEEN /hpf 0-5 [facility] Estimated GFR (MDRD) Amer 114 mL/min >60 [facility] Comment on above: GFR Calc Estimated GFR (MDRD) Non-Af Amer 94 mL/min >60 [facility] Comment on above: Non- GFR Calc ,Serum,hCG Quali.on 03-22-2024 HCG, SERUM QUAL Negative Normal [facility] Comment on above: Performed By: #### L 700.6800 #### [facility] [address] [place] [address], [address] Protein Test strip Ql (U)Ord ered By: Edu Vargas on 03-22-2024 Protein Ql (U) 30 mg/dl Negative [facility] RBC Auto (Bld) [#/Vol]Ordere d By: Edu Vargas on 03-22-2024 RBC (Bld) [#/Vol] 4.63 10*6/uL 4.2-5.4 [facility] Serum or plasma calcium samra urement (mass/volume)Ordered By: Edu Vargas on 03-22-2024 Calcium [Mass/Vol] 9.0 mg/dL 8.5-10.1 [facility] Serum or plasma choriogonado tropin detectionOrdered By: Edu Vargas on 03-22-2024 HCG ( test) Ql Negative [facility] Serum or plasma creatinine m easurement (mass/volume)Ordered By: Edu Vargas on 03-22-2024 Creatinine [Mass/Vol] 0.74 mg/dL 0.55-1.02 [facility] Comment on above: The validity of the calculated GFR & GFRAA in patients over 70 years has not been determined. Clinical correlation is essential. Serum or plasma urea nitroge n measurement (mass/volume)Ordered By: Edu Vargas on 03-22-2024 Urea nitrogen [Mass/Vol] 5 mg/dL - [facility] Squamous epithelial cells de tection in urine sediment by light microscopyOrdered By: Edu Vargas on 03-22-2024 Epithelial cells.squamous LM Ql (Urine sed) 0-5 SEEN /hpf 5-10 [facility] Thin prep Papanicolaou smear with manual screeningOrdered By: Edu Vargas on 03-22-2024 Thin prep Papanicolaou smear with manual screening 4 - [facility] Urinalysis, Completeon 03-22 EPI,SQUAMOUS 0-5 SEEN Normal - [facility] Comment on above: Order Comment: CLEAN CATCH Performed By: #### L 400.0001 #### [facility] [address] [place], [address] WBC 0-5 SEEN Normal 0-5 [facility] Comment on above: Order Comment: CLEAN CATCH Performed By: #### L 400.0001 #### [facility] [address] [place], [address] BACTERIA 0 SEEN Normal None Seen [facility] Comment on above: Order Comment: CLEAN CATCH Performed By: #### L 400.0001 #### [facility] [address] [place], [address] Mucus Ql (Urine sed) 0 SEEN Normal [facility] Comment on above: Order Comment: CLEAN CATCH Performed By: #### L 400.0001 #### [facility] [address] [place], [address] RBC 0 SEEN Normal 0-5 [facility] Comment on above: Order Comment: CLEAN CATCH Performed By: #### L 400.0001 #### [facility] [address] [place], [address] Urine blood detectionOrdered By: Edu Vargas on 03-22-2024 RBC Ql (U) Negative Negative [facility] Urine clarityOrdered By: Jessica Vargas on 03-22-2024 Clarity (U) Clear Clear [facility] Urine color determinationOrd ered By: Edu Vargas on 03-22-2024 Color (U) Yellow Yellow [facility] Urine glucose detectionOrder ed By: Edu Vargas on 03-22-2024 Glucose Ql (U) Normal mg/dl Normal [facility] Urine leukocyte esterase det ection by dipstickOrdered By: Edu Vargas on 03-22-2024 Leukocyte esterase Test strip Ql (U) 25 /ul Negative [facility] Urine pHOrdered By: Edu jacinto on 03-22-2024 pH (U) 6.5 [pH] 5.0 - 8.0 [facility] Urine sediment bacteria coun t by microscopy (number/high power field)Ordered By: Edu Vargas on 03-22-2024 Bacteria LM.HPF (Urine sed) [#/Area] 0 /[HPF] None Seen [facility] Urine specific gravity measu rementOrdered By: Edu Vargas on 03-22-2024 Specific gravity (U) [Rel density] 1.005 1.002-1.030 [facility] Urine urobilinogen measureme ntOrdered By: Edu Vargas on 03-22-2024 Urobilinogen Ql (U) 4 mg/dl Normal [facility] .Auto Diffon 03-20-2024 Basophil, Absolute 0.1 10 3/mcL Normal 0.0-0.2 [facility] ([place]) Comment on above: Performed By: #### A STAR, LIP, CMP, MDW, CBC, GFR, ADIFF #### [address] [address] Basophils/100 WBC (Bld) 0.5 % Normal 0.0-2.5 A [facility] ([place]) Comment on above: Performed By: #### A STAR, LIP, CMP, MDW, CBC, GFR, ADIFF #### [id number] [place], [place] [address] Eosinophil, Absolute 0.0 10 3/mcL Normal 0.0-0.4 [facility] ([place]) Comment on above: Performed By: #### A STAR, LIP, CMP, MDW, CBC, GFR, ADIFF #### [address] [address] Eosinophils/100 WBC (Bld) 0.1 % Normal 0.0-7.0 [facility] ([place]) Comment on above: Performed By: #### A STAR, LIP, CMP, MDW, CBC, GFR, ADIFF #### [address] [address] Lymphocyte, Absolute 1.7 10 3/mcL Normal 0.8-3.9 [facility] ([place]) Comment on above: Performed By: #### A STAR, LIP, CMP, MDW, CBC, GFR, ADIFF #### [address] [address] Lymphocytes/100 WBC (Bld) 16.2 % Normal 10.0-50.0 [facility] ([place]) Comment on above: Performed By: #### A STAR, LIP, CMP, MDW, CBC, GFR, ADIFF #### [address] [address] Monocyte, Absolute 0.3 10 3/mcL Normal 0.2-1.0 [facility] ([place]) Comment on above: Performed By: #### A STAR, LIP, CMP, MDW, CBC, GFR, ADIFF #### [address] [address] Monocytes/100 WBC (Bld) 2.9 % Normal 1.7-13.0 [facility] ([place]) Comment on above: Performed By: #### A STAR, LIP, CMP, MDW, CBC, GFR, ADIFF #### [address] [address] Neutrophils/100 WBC (Bld) 80.3 % High 37.0-80.0 [facility] ([place]) Comment on above: Performed By: #### A STAR, LIP, CMP, MDW, CBC, GFR, ADIFF #### [address] [place] [address] .GFRon 03-20-2024 GFR 108 ml/min/1.73sqm Normal [facility] ([place]) Comment on above: Result Comment: GFR Population mean for , Non- Americans Ages 20-29 = 116 mL/min/1.73 sq.m. Ages 30-39 = 107 mL/min/1.73 sq.m. Ages 40-49 = 99 mL/min/1.73 sq.m. Ages 50-59 = 93 mL/min/1.73 sq.m. Ages 60-69 = 85 mL/min/1.73 sq.m. Ages 70+ = 75 mL/min/1.73 sq.m. Chronic Kidney Disease: Less than 60 mL/min/1.73 square meters End Stage Renal Disease: Less than 15 mL/min/1.73 square meters Performed By: #### U A PREGU, UAMICAO #### [address] [address] GFR Non- 89 ml/min/1.73sqm Normal [facility] ([place]) Comment on above: Result Comment: GFR Population mean for , Non- Americans Ages 20-29 = 116 mL/min/1.73 sq.m. Ages 30-39 = 107 mL/min/1.73 sq.m. Ages 40-49 = 99 mL/min/1.73 sq.m. Ages 50-59 = 93 mL/min/1.73 sq.m. Ages 60-69 = 85 mL/min/1.73 sq.m. Ages 70+ = 75 mL/min/1.73 sq.m. Chronic Kidney Disease: Less than 60 mL/min/1.73 square meters End Stage Renal Disease: Less than 15 mL/min/1.73 square meters Performed By: #### U A, PREGU, UAMICAO #### [address] [address] .MDWon 03-20-2024 Monocyte Distribution Width 21.60 High 0.00-20.00 [facility] ([place]) Comment on above: Result Comment: For adults in ED, MDW>20.0 may be associated with a higher risk of sepsis during the first 12hrs of hospital admission Performed By: #### A STAR, MICHELLE, ANTIONE, MDW, CBC, GFR, ADIFF #### [place] [address] .NEUABSon 03-20-2024 Neutrophil, Absolute 8.4 10 3/mcL High 2.9-6.2 [facility] ([place]) Comment on above: Performed By: #### A STAR, MICHELLE, ANTIONE, MDW, CBC, GFR, ADIFF #### [place] [address] .Urinalysis Microscopic (AO) on 03-20-2024 UA Bacteria Trace Abnormal [facility] ([place]) Comment on above: Performed By: #### U Elle PREGU, UAMICAO #### [place] [address] UA RBC 0-5 Abnormal None Seen [facility] ([place]) Comment on above: Performed By: #### Fco Almeida PREGU, UAMICAO #### [place] [address] UA Squam Epithelial 0-5 Abnormal None Seen [facility] ([place]) Comment on above: Performed By: #### U Elle PREGU, UAMICAO #### [place] [address] UA WBC 0-5 Abnormal None Seen [facility] ([place]) Comment on above: Performed By: #### U Elle PREGU, UAMICAO #### [place] [address] CBCon 03-20-2024 Erythrocyte distribution width (RBC) [Ratio] 15.7 % High 11.5-14.5 [facility] ([place]) Comment on above: Performed By: #### A STAR, MICHELLE, ANTIONE, MDW, CBC, GFR, ADIFF #### [address] [address] Hematocrit (Bld) [Volume fraction] 35.1 % Low 37.0-47.0 [facility] ([place]) Comment on above: Performed By: #### A STAR, LIP, CMP, MDW, CBC, GFR, ADIFF #### [address] [address] Hgb 11.6 G/dL Low 12.0-16.0 [facility] ([place]) Comment on above: Performed By: #### A STAR, LIP, CMP, MDW, CBC, GFR, ADIFF #### [place] [address] MCH (RBC) [Entitic mass] 25.3 pg Low 27.0-31.2 [facility] ([place]) Comment on above: Performed By: #### A STAR, LIP, CMP, MDW, CBC, GFR, ADIFF #### [place] [address] MCHC 33.0 G/dL Normal 33.0-37.0 [facility] ([place]) Comment on above: Performed By: #### A STAR, LIP, CMP, MDW, CBC, GFR, ADIFF #### [place] [address] MCV (RBC) [Entitic vol] 76.6 fL Low 80.0-94.0 A [facility] ([place]) Comment on above: Performed By: #### A STAR, LIP, CMP, MDW, CBC, GFR, ADIFF #### [place] [address] Platelet 344 10 3/mcL Normal 130-400 [facility] ([place]) Comment on above: Performed By: #### A STAR, LIP, CMP, MDW, CBC, GFR, ADIFF #### [address] [address] Platelet mean volume (Bld) [Entitic vol] 7.4 fL Normal 7.4-10.4 [facility] ([place]) Comment on above: Performed By: #### A STAR, LIP, CMP, MDW, CBC, GFR, ADIFF #### [place] [address] RBC 4.58 10 6/mcL Normal 4.20-5.40 [facility] ([place]) Comment on above: Performed By: #### A STAR, LIP, CMP, MDW, CBC, GFR, ADIFF #### [address] [address] WBC 10.5 10 3/mcL Normal 4.6-10.8 [facility] ([place]) Comment on above: Performed By: #### A STAR, LIP, CMP, MDW, CBC, GFR, ADIFF #### [address] [address] CMPon 03-20-2024 ALT [Catalytic activity/Vol] 15 U/L Normal 14-59 [facility] ([place]) Comment on above: Performed By: #### U DEBORAH AlmeidaU UAMICAO #### [address] [address] Albumin Level 3.0 G/dL Low 3.5-5.0 [facility] ([place]) Comment on above: Performed By: #### U Elle PREGU, UAMICAO #### [address] [address] Albumin/Globulin [Mass ratio] 0.8 {ratio} Low 1.1-2.5 [facility] ([place]) Comment on above: Performed By: #### U A PREGU, UAMICAO #### [address] [address] ALP [Catalytic activity/Vol] 85 U/L Normal 40-135 [facility] ([place]) Comment on above: Performed By: #### U A PREGU, UAMICAO #### [address] [address] AST [Catalytic activity/Vol] 10 U/L Normal 10-40 [facility] ([place]) Comment on above: Performed By: #### U A PREGU, UAMICAO #### [address] [address] Bili Total 0.2 mg/dL Normal 0.2-1.0 [facility] ([place]) Comment on above: Result Comment: Use of this assay is not recommended for patients undergoing treatment with eltrombopag due to the potential for falsely elevated results. Performed By: #### LORIN Rico UAPARVIN #### [address] [address] BUN/Creatinine Ratio 9 ratio Normal 7-27 [facility] ([place]) Comment on above: Performed By: #### LORIN Rico UAMICAO #### [address] [address] Calcium [Mass/Vol] 8.2 mg/dL Low 8.4-10.2 [facility] ([place]) Comment on above: Performed By: #### LORIN Rico UAMICAO #### [place] [id number] Chloride [Moles/Vol] 102 mmol/L Normal 98-107 [facility] ([place]) Comment on above: Performed By: #### LORIN Rico UAMICSANDOVAL #### [address] [address] CO2 [Moles/Vol] 26 mmol/L Normal 22-29 [facility] ([place]) Comment on above: Performed By: #### LORIN Rico UAMICAO #### [address] [address] Creatinine [Mass/Vol] 0.74 mg/dL Normal 0.55-1.02 [facility] ([place]) Comment on above: Performed By: #### LORIN Rico UAMICAO #### [address] [address] Electrolyte Balance 10.0 mEq/L Normal 4.0-15.0 [facility] ([place]) Comment on above: Performed By: #### LORIN Rico UAMICAO #### [address] [address] Globulin 3.7 G/dL Normal [facility] ([place]) Comment on above: Performed By: #### LORIN Rico UAMICAO #### [address] [address] Glucose [Mass/Vol] 116 mg/dL High 70-105 [facility] ([place]) Comment on above: Performed By: #### DEBORAH RicoU UAMICAO #### [address] [address] Potassium [Moles/Vol] 3.9 mmol/L Normal 3.5-5.1 [facility] ([place]) Comment on above: Performed By: #### U Elle PREGU UAMICAO #### [address] [address] Sodium [Moles/Vol] 138 mmol/L Normal 136-145 [facility] ([place]) Comment on above: Performed By: #### U DEBORAH AlmeidaU UAMICAO #### [address] [address] Total Protein 6.7 G/dL Normal 6.4-8.2 [facility] ([place]) Comment on above: Performed By: #### DEBORAH RicoU UAMICAO #### [address] [address] Urea nitrogen [Mass/Vol] 7 mg/dL Normal 7-18 [facility] ([place]) Comment on above: Performed By: #### U DEBORAH AlmeidaU UAMICAO #### [address] [address] [address] ABD/PELVIS W/ IV CONTRAST ONLYon 03-20-2024 CT ABD/PELVIS W/ IV CONTRAST ONLY ORIGINAL EXAMINATION: CT OF THE ABDOMEN AND PELVIS WITH CONTRAST03/20/2024 9:02 am TECHNIQUE: CT of the abdomen and pelvis was performed with the administration of intravenous contrast. Multiplanar reformatted images are provided for review. Automated exposure control, iterative reconstruction, and/or weight based adjustment of the mA/kV was utilized to reduce the radiation dose to as low as reasonably achievable. COMPARISON: None HISTORY: ORDERING SYSTEM PROVIDED HISTORY: Reason for Exam: abdominal pain Right flank pain FINDINGS: The included lung bases are clear. There is no visible pleural or pericardial effusion. The heart is normal in size. The liver, spleen, adrenal glands, kidneys, gallbladder and pancreas are within normal limits. The large and small bowel are normal in course and caliber. The appendix is surgically absent. No free intraperitoneal fluid or air is identified. The aorta is normal in caliber. There is no lymphadenopathy. The uterus and adnexa are normal. There is no visible fracture or aggressive osseous lesion. IMPRESSION: No acute intra-abdominal or pelvic process. Interpreted by: Julián Mcbride DO Preliminary Report By: Julián Mcbride DO Electronically signed By Julián Mcbride DO Dictated Date: 03/20/2024 9:06:39 AM Prelim Date: 03/20/2024 9:09:39 AM Sign Date: 03/20/2024 9:09:39 AM Ordering Provider: GELACIO Saunders [facility] ([place]) LABORATORYOrdered By: SYSTEM SYSTEM on 03-20-2024 Albumin BCP dye [Mass/Vol] 3.0 G/dL Low 3.5 - 5.0 G/dL AO ADM SS Albumin/Globulin [Mass ratio] 0.8 {ratio} Low 1.1 - 2.5 ratio AO ADM SS ALP [Catalytic activity/Vol] 85 U/L Normal 40 - 135 U/L AO ADM SS ALT With P-5'-P [Catalytic activity/Vol] 15 U/L Normal 14 - 59 U/L AO ADM SS AST With P-5'-P [Catalytic activity/Vol] 10 U/L Normal 10 - 40 U/L AO ADM SS Basophil, Absolute 0.1 103/mcL Normal 0.0 - 0.2 10^3/mcL AO Workflow SS Basophils/100 WBC (Bld) 0.5 % Normal 0.0 - 2.5 % AO Workflow SS Bilirubin [Mass/Vol] 0.2 mg/dL Normal 0.2 - 1 .0 mg/dL AO ADM SS Comment on above: Interpretive Data: U se of this assay is not recommended for patients undergoing treatment with eltrombopag due to the potential for falsely elevated results. Calcium [Mass/Vol] 8.2 mg/dL Low 8.4 - 10. 2 mg/dL AO ADM SS Chloride [Moles/Vol] 102 mmol/L Normal 98 - 10 7 mmol/L AO ADM SS CO2 [Moles/Vol] 26 mmol/L Normal 22 - 29 mmol/L AO ADM SS Creatinine [Mass/Vol] 0.74 mg/dL Normal 0.55 - 1.02 mg/dL AO ADM SS Electrolyte Balance 10.0 mEq/L Normal 4.0 - 15 .0 mEq/L AO ADM SS Eosinophil, Absolute 0.0 103/mcL Normal 0.0 - 0 .4 10^3/mcL AO Workflow SS Eosinophils/100 WBC (Bld) 0.1 % Normal 0.0 - 7.0 % AO Workflow SS Erythrocyte distribution width (RBC) [Ratio] 15.7 % High 11.5 - 14.5 % AO Workflow SS GFR/1.73 sq M.predicted among blacks MDRD (S/P/Bld) [Vol rate/Area] 108 ml/min/1.73sqm Invalid Interpretation Code AO Chemistry S Comment on above: Interpretive Data: GFR Population mean for , Non- Americans Ages 20-29 = 116 mL/min/1.73 sq.m. Ages 30-39 = 107 mL/min/1.73 sq.m. Ages 40-49 = 99 mL/min/1.73 sq.m. Ages 50-59 = 93 mL/min/1.73 sq.m. Ages 60-69 = 85 mL/min/1.73 sq.m. Ages 70+ = 75 mL/min/1.73 sq.m. Chronic Kidney Disease: Less than 60 mL/min/1.73 square meters End Stage Renal Disease: Less than 15 mL/min/1.73 square meters GFR/1.73 sq M.predicted among non-blacks MDRD (S/P/Bld) [Vol rate/Area] 89 ml/min/1.73sqm Invalid Interpretation Code AO Chemistry S Comment on above: Interpretive Data: GFR Population mean for , Non- Americans Ages 20-29 = 116 mL/min/1.73 sq.m. Ages 30-39 = 107 mL/min/1.73 sq.m. Ages 40-49 = 99 mL/min/1.73 sq.m. Ages 50-59 = 93 mL/min/1.73 sq.m. Ages 60-69 = 85 mL/min/1.73 sq.m. Ages 70+ = 75 mL/min/1.73 sq.m. Chronic Kidney Disease: Less than 60 mL/min/1.73 square meters End Stage Renal Disease: Less than 15 mL/min/1.73 square meters Globulin 3.7 G/dL Invalid Interpretation Code AO ADM SS Glucose [Mass/Vol] 116 mg/dL High 70 - 105 mg/dL AO ADM SS Hematocrit (Bld) [Volume fraction] 35.1 % Low 37.0 - 47.0 % AO Workflow SS Hemoglobin (Bld) [Mass/Vol] 11.6 G/dL Low 12.0 - 16.0 G/dL AO Workflow SS Lipase [Catalytic activity/Vol] 22 U/L Normal 16 - 77 U/L AO ADM SS Lymphocyte, Absolute 1.7 103/mcL Normal 0.8 - 3 .9 10^3/mcL AO Workflow SS Lymphocytes/100 WBC (Bld) 16.2 % Normal 10.0 - 50.0 % AO Workflow SS MCH (RBC) [Entitic mass] 25.3 pg Low 27. 0 - 31.2 pg AO Workflow SS MCHC 33.0 G/dL Normal 33.0 - 37.0 G/dL AO Workflow SS MCV (RBC) [Entitic vol] 76.6 fL Low 80.0 - 94.0 fL AO Workflow SS Monocyte distribution width Auto (Bld) [Entitic vol] 21.60 1 High 0.00 - 20.00 AO Workflow SS Comment on above: Result Comment: For adults in ED, MDW>20.0 may be associated with a higher risk of sepsis during the first 12hrs of hospital admission Monocyte, Absolute 0.3 103/mcL Normal 0.2 - 1.0 10^3/mcL AO Workflow SS Monocytes/100 WBC (Bld) 2.9 % Normal 1.7 - 13.0 % AO Workflow SS Neutrophil, Absolute 8.4 103/mcL High 2.9 - 6 .2 10^3/mcL AO Workflow SS Neutrophils/100 WBC (Bld) 80.3 % High 37.0 - 80.0 % AO Workflow SS Platelet mean volume (Bld) [Entitic vol] 7.4 fL Normal 7.4 - 10.4 fL AO Workflow SS Platelets (Bld) [#/Vol] 344 103/mcL Normal 130 - 400 10^3/mcL AO Workflow SS Potassium [Moles/Vol] 3.9 mmol/L Normal 3.5 - 5.1 mmol/L AO ADM SS Protein [Mass/Vol] 6.7 G/dL Normal 6.4 - 8.2 G/dL AO ADM SS RBC (Bld) [#/Vol] 4.58 106/mcL Normal 4.20 - 5.4 0 10^6/mcL AO Workflow SS Sodium [Moles/Vol] 138 mmol/L Normal 136 - 145 mmol/L AO ADM SS Urea nitrogen [Mass/Vol] 7 mg/dL Normal 7 - 18 mg/d L AO ADM SS Urea nitrogen/Creatinine [Mass ratio] 9 ratio Normal 7 - 27 ratio AO ADM SS WBC (Bld) [#/Vol] 10.5 103/mcL Normal 4.6 - 10.8 10^3/mcL AO Workflow SS LABORATORYOrdered By: Cristina Bettencourt on 03-20-2024 Appearance (U) Clear (03/20/24 8:21 AM) Normal Clear AO Auto Urine SS Bacteria LM.HPF (Urine sed) [#/Area] Trace /HPF Invalid Interpretation Code AO Auto Urine SS Bilirubin Ql (U) Negative (03/20/24 8:21 AM) Normal Negative AO Auto Urine SS Color (U) Yellow (03/20/24 8:21 AM) Normal AO Auto Urine SS Glucose Test strip (U) [Mass/Vol] 100 mg/dL Invalid Interpretation Code Negative AO Auto Urine SS HCG ( test) Ql Negative (03/20/24 8:21 AM) Normal AO Manual Urine SS Hemoglobin Auto test strip (U) [Mass/Vol] Trace *ABN* (03/20/24 8:21 AM) Invalid Interpretation Code Negative AO Auto Urine SS Ketones Ql (U) Negative Normal Negative AO Auto Ur ine SS test (u) int Not detected Invalid Interpretation Code AO Manual Urine SS UA Leuk Est Negative (03/20/24 8:21 AM) Normal Negative AO Auto Urine SS UA Nitrite Positive *ABN* (03/20/24 8:21 AM) Invalid Interpretation Code Negative AO Auto Urine SS UA pH 7.0 (03/20/24 8:21 AM) Normal 5.0 - 8.0 AO Auto Urine SS UA Protein >=300 mg/dL Invalid Interpretation Code Negative AO Auto Urine SS UA RBC 0-5 /HPF Invalid Interpretation Code None Seen AO Auto Urine SS UA Spec Grav 1.020 (03/20/24 8:21 AM) Normal 1.015-1.025 AO Auto Urine SS UA Specimen Type Clean Catch (03/20/24 8:21 AM) Normal AO Auto Urine SS UA Squam Epithelial 0-5 /HPF Invalid Interpretation Code None Seen AO Auto Urine SS UA Urobilinogen 1.0 E.U./dL Normal 0.2-1.0 AO Auto Urine SS WBC LM.HPF (Urine sed) [#/Area] 0-5 /HPF Invalid Interpretation Code None Seen AO Auto Urine SS LIPon 03-20-2024 Lipase Level 22 U/L Normal 16-77 [facility] ([place]) Comment on above: Performed By: #### A STAR, LIP, CMP, MDW, CBC, GFR, ADIFF #### [address] [address] PREGUon 03-20-2024 HCG ( test) Ql (U) Negative Normal [facility] ([place]) Comment on above: Performed By: #### U A, PREGU, UAMICAO #### [place] [address] test (u) int Not detected Invalid Interpretation Code [facility] ([place]) Comment on above: Performed By: #### U A, PREGU, UAMICAO #### [address] [address] UAon 03-20-2024 Color (U) Yellow Normal [facility] ([place]) Comment on above: Performed By: #### U A, PREGU, UAMICAO #### [address] [address] Glucose (U) [Mass/Vol] 100 mg/dL Abnormal Negative [facility] ([place]) Comment on above: Performed By: #### U A, PREGU, UAMICAO #### [address] [address] Ketones Ql (U) Negative Normal Negative [facility] ([place]) Comment on above: Performed By: #### U A, PREGU, UAMICAO #### [address] [address] UA Appear Clear Normal Clear [facility] ([place] Comment on above: Performed By: #### U A, PREGU, UAMICAO #### [address] [address] UA Blood Trace Abnormal Negative [facility] ([place]) Comment on above: Performed By: #### U A, PREGU, UAMICAO #### [address] [address] UA Leuk Est Negative Normal Negative [facility] ([place]) Comment on above: Performed By: #### U A, PREGU, UAMICAO #### [place] [address] UA Nitrite Positive Abnormal Negative [facility] ([place] Comment on above: Performed By: #### U A, PREGU, UAMICAO #### [place] [address] UA pH 7.0 Normal 5.0 - 8.0 [facility] ([place]) Comment on above: Performed By: #### U A, PREGU, UAMICAO #### [place] [address] UA Protein >=300 Abnormal Negative [facility] ([place]) Comment on above: Performed By: #### U A, PREGU, UAMICAO #### [place] [address] UA Spec Grav 1.020 Normal 1.015-1.025 [facility] ([place]) Comment on above: Performed By: #### U A, PREGU, UAMICAO #### [address] [address] UA Specimen Type Clean Catch Normal [facility] ([place]) Comment on above: Performed By: #### U A, PREGU, UAMICAO #### [place] [address] UA Urobilinogen 1.0 E.U./dL Normal 0.2-1.0 [facility] ([place]) Comment on above: Performed By: #### U A, PREGU, UAMICAO #### [place] [address] Urobilinogen (U) [Mass/Vol] Negative Normal Negative [facility] ([place]) Comment on above: Performed By: #### U LORIN Almeida UAMICAO #### [place] [id number] [place], [place] [address] XR NECK SOFT TISSUEon 2022 XR NECK SOFT TISSUE ORIGINAL EXAMINATION: TWO XRAY VIEWS OF THE NECK SOFT TISSUES 08/09/2023 1:00 pm COMPARISON: None. HISTORY: ORDERING SYSTEM PROVIDED HISTORY: Reason for Exam: concern for foreign body FINDINGS: There are 2 radiodense objects projecting at the level of C4 and cricoid cartilage measuring approximately 0.8 and 0.5 cm, best appreciated on the lateral image. No prevertebral soft tissue swelling. The vertebral body heights and cervical lordosis are maintained. No traumatic malalignment. The included thoracic structures are unremarkable. IMPRESSION: 2 radiodense objects projecting at the level C4/cricoid cartilage. CT neck could further evaluate. I have personally reviewed the images of this examination and agree with the resident's findings and interpretation. Interpreted by: Axel Paul MD Preliminary Report By: Rishabh Cordova Electronically signed By Axel Paul MD Dictated Date: 08/09/2023 1:10:43 PM Prelim Date: 08/09/2023 1:17:54 PM Sign Date: 08/09/2023 1:52:44 PM Ordering Provider: ANGELA FALL Normal [facility] ([place]) URINE OB DIP B/Oon 2 Glucose Ql (U) Negative Neg mg/dL [facility] Protein.monoclonal (U) [Mass/Vol] Negative Neg mg/dL [facility] URINE OB DIP B/Oon 2 Glucose Ql (U) Negative Neg mg/dL [facility] Protein.monoclonal (U) [Mass/Vol] Negative Neg mg/dL [facility] URINE OB DIP B/Oon 2 Glucose Ql (U) Negative Neg mg/dL [facility] Protein.monoclonal (U) [Mass/Vol] Negative Neg mg/dL [facility] URINE OB DIP B/Oon 2 Glucose Ql (U) Negative Neg mg/dL [facility] Protein.monoclonal (U) [Mass/Vol] Negative Neg mg/dL [facility] CBC W Auto Differential pane l (Bld)on 05-14-2022 Abs Immature Gran 0.07 k/uL <0.10 k/uL [facility] Basophils (Bld) [#/Vol] 10*3/uL <0.11 k/uL C [facility] Basophils/100 WBC (Bld) 0.1 % C [facility] Differential cell count method Nom (Bld) Auto [facility] Eosinophils (Bld) [#/Vol] 0.11 10*3/uL <0.46 k/uL [facility] Eosinophils/100 WBC (Bld) 1.3 % [facility] Erythrocyte distribution width (RBC) [Ratio] 18.6 % High 11.5 - 15.0 % [facility] Hematocrit (Bld) [Volume fraction] 32.6 % Low 36.0 - 46.0 % [facility] Hemoglobin (Bld) [Mass/Vol] 10.9 g/dL Low 11.5 - 15.5 g/dL [facility] Immature Gran % 0.8 % [facility] Lymphocytes (Bld) [#/Vol] 2.33 10*3/uL 1.00 - 4.00 k/uL [facility] Lymphocytes/100 WBC (Bld) 28.3 % [facility] MCH (RBC) [Entitic mass] 26.1 pg 26. 0 - 34.0 pg [facility] MCHC (RBC) [Mass/Vol] 33.4 g/dL 30.5 - 36.0 g/dL [facility] MCV (RBC) [Entitic vol] 78.2 fL Low 80.0 - 100.0 fL [facility] Monocytes (Bld) [#/Vol] 0.43 10*3/uL <0.87 k/uL [facility] Monocytes/100 WBC (Bld) 5.2 % [facility]) [#/Vol] 5.29 10*3/uL 1.45 - 7.50 k/uL [facility] Neutrophils/100 WBC (Bld) 64.3 % [facility] Nucleated RBC (Bld) [#/Vol] 10*3/uL <0.01 k/uL [facility] Nucleated RBC/100 WBC (Bld) [Ratio] 0.0 /100 WBC [facility] Platelet mean volume (Bld) [Entitic vol] 8.9 fL Low 9.0 - 12.7 fL [facility] Platelets (Bld) [#/Vol] 279 10*3/uL 150 - 400 k/uL [facility] RBC (Bld) [#/Vol] 4.17 10*6/uL 3.90 - 5.2 0 m/uL [facility] WBC (Bld) [#/Vol] 8.24 10*3/uL 3.70 - 11. 00 k/uL [facility] URINE OB DIP B/Oon 2 Glucose Ql (U) Negative Neg mg/dL [facility] Protein.monoclonal (U) [Mass/Vol] Negative Neg mg/dL [facility] URINE OB DIP B/Oon 2 Glucose Ql (U) Negative Neg mg/dL [facility] Protein.monoclonal (U) [Mass/Vol] Negative Neg mg/dL [facility] URINE OB DIP B/Oon 2 Glucose Ql (U) Negative Neg mg/dL [facility] Protein.monoclonal (U) [Mass/Vol] Negative Neg mg/dL [facility] Vital Signs Date Time Vital Sign Value Performing Clinician Facility 02-06-2025 09:05-0400 Body mass index (BMI) [Ratio] 37.73 kg/m2 Izzy Langston MD Work Phone: [facility] 02-06-2025 09:05-0400 Body weight 96.62 kg Izzy Langston MD Work Phone: [facility] 02-06-2025 09:05-0400 Diastolic blood pressure 80 mm[Hg] Izzy Langston MD Work Phone: [facility] 02-06-2025 09:05-0400 Systolic blood pressure 138 mm[Hg] Izzy Langston MD Work Phone: [facility] 01-13-2025 09:44-0500 Body mass index (BMI) [Ratio] 37.55 kg/m2 Claribel Hood MD Work Phone: [facility] 01-13-2025 09:44-0500 Body weight 96.16 kg Claribel Hood MD Work Phone: [facility] 01-13-2025 09:44-0500 Diastolic blood pressure 76 mm[Hg] Claribel Hood MD Work Phone: [facility] 01-13-2025 09:44-0500 Systolic blood pressure 118 mm[Hg] Claribel Hood MD Work Phone: [facility] 03-22-2024 18:45-0400 Body temperature 97.6 [degF] [facility] 03-22-2024 18:45-0400 Diastolic blood pressure 75 mm[Hg] [facility] 03-22-2024 18:45-0400 Heart rate 91 /min [facility] 03-22-2024 18:45-0400 Respiratory rate 20 /min [facility] 03-22-2024 18:45-0400 SaO2% (BldA) [Mass fraction] 97 % [facility] 03-22-2024 18:45-0400 Systolic blood pressure 146 mm[Hg] [facility] 03-22-2024 13:36-0400 Body height 160.02 cm [facility] 03-20-2024 09:37-0400 Diastolic Blood Pressure Non-Invasive 67 mm[Hg] GELACIO COPELANDT DO [facility] 03-20-2024 09:37-0400 Heart rate 58 /min GELACIO COPELANDT DO [facility] 03-20-2024 09:37-0400 Mean blood pressure 82 mm[Hg] GELACIO FROMMELT DO [facility] 03-20-2024 09:37-0400 Respiratory rate 19 /min GELACIO FROMMELT DO [facility] 03-20-2024 09:37-0400 Systolic Blood Pressure Non-Invasive 109 mm[Hg] GELACIO FROMMELT DO [facility] 03-20-2024 08:04-0400 Body temperature 97.34 [degF] GELACIO MINERVAMELT DO [facility] 03-20-2024 08:04-0400 Diastolic Blood Pressure Non-Invasive 71 mm[Hg] GELACIO PAULINO DO [facility] 03-20-2024 08:04-0400 Heart rate 72 /min GELACIO PAULINO DO [facility] 03-20-2024 08:04-0400 Respiratory rate 16 /min GELACIO PAULINO DO [facility] 03-20-2024 08:04-0400 Systolic Blood Pressure Non-Invasive 117 mm[Hg] GELACIO PAULINO DO [facility] 10-17-2023 09:31-0500 Body height 160 cm Meg Kramer APRN.EXTRACTION OPERATOR Work Phone: [facility] 10-17-2023 09:31-0500 Body weight 92.17 kg Meg Kramer APRN.EXTRACTION OPERATOR Work Phone: [facility] 10-17-2023 09:31-0500 Diastolic blood pressure 78 mm[Hg] Meg Kramer APRN.EXTRACTION OPERATOR Work Phone: [facility] 10-17-2023 09:31-0500 Systolic blood pressure 124 mm[Hg] Meg Kramer APRN.EXTRACTION OPERATOR Work Phone: [facility] 08-09-2023 12:40-0400 Blood Pressure Cuff Size ANGELA FALL MD [facility] 08-09-2023 12:40-0400 Blood Pressure Location ANGELA FALL MD [facility] 08-09-2023 12:40-0400 Blood Pressure Method ANGELA FALL MD [facility] 08-09-2023 12:40-0400 Body temperature 99.5 [degF] ANGELA FALL MD [facility] 08-09-2023 12:40-0400 Diastolic Blood Pressure Non-Invasive 72 1 ANGELA FALL MD [facility] 08-09-2023 12:40-0400 Heart rate 80 /min ANGELA FALL MD [facility] 08-09-2023 12:40-0400 Respiratory rate 18 /min ANGELA FALL MD [facility] 08-09-2023 12:40-0400 Systolic Blood Pressure Non-Invasive 132 1 ANGELA FALL MD [facility] 09-09-2022 10:12-0400 Body weight 94.35 kg Claribel Hood MD Work Phone: [facility] 09-09-2022 10:12-0400 Diastolic blood pressure 72 mm[Hg] Claribel Hood MD Work Phone: [facility] 09-09-2022 10:12-0400 Systolic blood pressure 112 mm[Hg] Claribel Hood MD Work Phone: [facility] 08-26-2022 09:42-0400 Body weight 94.35 kg Claribel Hood MD Work Phone: [facility] 08-26-2022 09:42-0400 Diastolic blood pressure 72 mm[Hg] Claribel Hood MD Work Phone: [facility] 08-26-2022 09:42-0400 Systolic blood pressure 114 mm[Hg] Claribel Hood MD Work Phone: [facility] 07-24-2022 09:57-0400 Body weight 93.71 kg Claribel Hood MD Work Phone: [facility] 07-24-2022 09:57-0400 Diastolic blood pressure 72 mm[Hg] Claribel Hood MD Work Phone: [facility] 07-24-2022 09:57-0400 Systolic blood pressure 110 mm[Hg] Claribel Hood MD Work Phone: [facility] 07-15-2022 10:26-0400 Body weight 100.25 kg Vivian Vergara MD Work Phone: [facility] 07-15-2022 10:26-0400 Diastolic blood pressure 78 mm[Hg] Vivian Vergara MD Work Phone: [facility] 07-15-2022 10:26-0400 Systolic blood pressure 129 mm[Hg] Vivian Vergara MD Work Phone: [facility] 07-07-2022 10:23-0400 Body weight 99.34 kg Vivian Vergara MD Work Phone: [facility] 07-07-2022 10:23-0400 Diastolic blood pressure 62 mm[Hg] Vivian Vergara MD Work Phone: [facility] 07-07-2022 10:23-0400 Systolic blood pressure 112 mm[Hg] Vivian Vergara MD Work Phone: [facility] 06-30-2022 09:57-0400 Body weight 101.15 kg Vivian Vergara MD Work Phone: [facility] 06-30-2022 09:57-0400 Diastolic blood pressure 70 mm[Hg] Vivian Vergara MD Work Phone: [facility] 06-30-2022 09:57-0400 Systolic blood pressure 118 mm[Hg] Vivian Vergara MD Work Phone: [facility] 05-28-2022 10:18-0400 Body weight 98.88 kg Vivian Vergara MD Work Phone: [facility] 05-28-2022 10:18-0400 Diastolic blood pressure 60 mm[Hg] Vivian Vergara MD Work Phone: [facility] 05-28-2022 10:18-0400 Systolic blood pressure 102 mm[Hg] Vivian Vergara MD Work Phone: [facility] 05-14-2022 09:53-0400 Body weight 95.71 kg Vivian Vergara MD Work Phone: [facility] 05-14-2022 09:53-0400 Diastolic blood pressure 62 mm[Hg] Vivian Vergara MD Work Phone: [facility] 05-14-2022 09:53-0400 Systolic blood pressure 118 mm[Hg] Vivian Vergara MD Work Phone: [facility] 04-25-2022 11:10-0400 Body weight 95.25 kg Vivian Vergara MD Work Phone: [facility] 04-25-2022 11:10-0400 Diastolic blood pressure 60 mm[Hg] Vivian Vergara MD Work Phone: [facility] 04-25-2022 11:10-0400 Systolic blood pressure 110 mm[Hg] Vivian Vergara MD Work Phone: [facility] 04-14-2022 10:45-0400 Body weight 96.62 kg Vivian Vergara MD Work Phone: [facility] 04-14-2022 10:45-0400 Diastolic blood pressure 60 mm[Hg] Vivian Vergara MD Work Phone: [facility] 04-14-2022 10:45-0400 Systolic blood pressure 110 mm[Hg] Vivian Vergara MD Work Phone: [facility] 03-17-2022 10:19-0400 Body weight 91.17 kg Vivian Vergara MD Work Phone: [facility] 03-17-2022 10:040 Diastolic blood pressure 64 mm[Hg] Vivian Vergara MD Work Phone: [facility] 03-17-2022 10:040 Systolic blood pressure 118 mm[Hg] Vivian Vergara MD Work Phone: [facility] Encounters Encounter Date Encounter Type Care Provider Facility Start: 02-06-2025 End: 02-06-2025 [facility] Facility[facility] Start: 02-06-2025 End: 02-06-2025 Office outpatient visit 15 minutes Izzy Langston MD Work Phone: OB/Gynecology Comment on above: Pelvic pain (Primary Dx); Abdominal wall pain Start: 01-31-2025 End: 04-02-2025 Follow-up encounter Claribel Hood MD Work Phone: OB/Gynecology Start: 01-27-2025 End: 01-27-2025 ambulatory 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 [employer] Work Phone: OB/Gynecology Start: 01-27-2025 End: 01-27-2025 Patient encounter procedure Us Tech 1 [facility] [employer] OB/Gynecology Start: 01-13-2025 End: 01-13-2025 ambulatory CLARIBEL HOOD Facility:[facility] Start: 01-13-2025 End: 01-13-2025 Patient encounter procedure Claribel Hood MD Work Phone: OB/Gynecology Comment on above: Encounter for gyneco logical examination (general) (routine) without abnormal findings (Primary Dx); Surveillance for control, oral contraceptives; Encounter for surveillance of contraceptive pills; Pelvic pain Start: 01-13-2025 End: 01-13-2025 Patient encounter status Claribel Hood MD Work Phone: [facility] Start: 11-15-2024 End: 11-15-2024 Refill Renae Christopher MD Work Phone: OB/Gynecology Comment on above: Refill Request Start: 03-22-2024 End: 03-22-2024 Emergency department patient visit Edu Vargas Facility:[facility] Start: 03-22-2024 End: 03-22-2024 Emergency department patient visit [facility] Work Phone: Start: 03-20-2024 End: 03-20-2024 [facility] Start: 03-20-2024 End: 03-20-2024 [facility] Start: 10-20-2023 Refill Meg JACK RN.[facility] Work Phone: OB/Gynecology Start: 10-17-2023 End: 10-17-2023 Patient encounter procedure Meg Kramer APRN.EXTRACTION OPERATOR Work Phone: OB/Gynecology Comment on above: Encounter for gyneco logical examination (general) (routine) without abnormal findings (Primary Dx); Generalized abdominal pain; Screen for STD (sexually transmitted disease); Surveillance for control, oral contraceptives Start: 10-17-2023 End: 10-17-2023 Patient encounter status Meg Kramer APRN.EXTRACTION OPERATOR Work Phone: [facility] Work Phone: Start: 08-09-2023 End: 08-09-2023 Emergency department patient visit NONE PHYSICIAN Facility:B Start: 08-09-2023 End: 08-09-2023 Emergency department patient visit ANGELA FALL MD [facility] Start: 01-13-2023 Telephone encounter Claribel macias MD Work Phone: OB/Gynecology Comment on above: Patient Question; Ap pointment Start: 09-09-2022 End: 09-09-2022 Patient encounter procedure Claribel Hood MD Work Phone: OB/Gynecology Comment on above: Encounter for repeat Pap smear due to previous insufficient cervical cells (Primary Dx) Start: 09-05-2022 Telephone encounter Claribel macias MD Work Phone: OB/Gynecology Comment on above: Future Appointment ( Needs Financial Clearance) Start: 08-26-2022 End: 08-26-2022 Patient encounter procedure Claribel Hood MD Work Phone: OB/Gynecology Comment on above: care and examination (Primary Dx); Encounter for screening for malignant neoplasm of cervix; Special screening examination for human papillomavirus (HPV) Start: 07-24-2022 End: 07-24-2022 Patient encounter procedure Claribel Hood MD Work Phone: OB/Gynecology Comment on above: care and examination of lactating mother (Primary Dx) Start: 07-15-2022 ambulatory Claribel Pena Work Phone: OB/Gynecology Comment on above: Ob Delivery Note Start: 07-15-2022 End: 07-15-2022 Patient encounter procedure Vivian Vergara MD Work Phone: OB/Gynecology Comment on above: Obesity in (Primary Dx); AMA (advanced maternal age) multigravida 35+, third trimester; 38 weeks gestation of ; Marginal insertion of umbilical cord affecting management of mother Start: 07-07-2022 End: 07-07-2022 Patient encounter procedure Vivian Vergara MD Work Phone: OB/Gynecology Comment on above: Obesity in (Primary Dx); 37 weeks gestation of ; Marginal insertion of umbilical cord affecting management of mother Start: 06-30-2022 Telephone encounter Vivian Vergara MD Work Phone: OB/Gynecology Comment on above: Results; Appointment Start: 06-30-2022 End: 06-30-2022 Patient encounter procedure Vivian Vergara MD Work Phone: OB/Gynecology Comment on above: Excessive grow th affecting management of in third trimester, single or unspecified fetus (Primary Dx); AMA (advanced maternal age) multigravida 35+, third trimester; 36 weeks gestation of ; Vaginal irritation Uterine size date di screpancy, third trimester (Primary Dx); 36 weeks gestation of ; Obesity complicating , second trimester Start: 05-28-2022 End: 05-28-2022 Patient encounter procedure Vivian Vergara MD Work Phone: OB/Gynecology Comment on above: AMA (advanced matern al age) multigravida 35+, third trimester (Primary Dx); 31 weeks gestation of ; Marginal insertion of umbilical cord affecting management of mother Start: 05-14-2022 End: 05-14-2022 Patient encounter procedure Vivian Vergara MD Work Phone: OB/Gynecology Comment on above: Marginal insertion o f umbilical cord affecting management of mother (Primary Dx); 29 weeks gestation of Start: 04-25-2022 Telephone encounter Vivian Vergara MD Work Phone: OB/Gynecology Comment on above: abnormal glucose Start: 04-25-2022 End: 04-25-2022 Patient encounter procedure Vivian Vergara MD Work Phone: OB/Gynecology Comment on above: Encounter for superv ision of other normal in second trimester (Primary Dx); 27 weeks gestation of ; Need for vaccination Suspected problem wi th growth not found (Primary Dx); 27 weeks gestation of Start: 04-14-2022 End: 04-14-2022 Patient encounter procedure Vivian Vergara MD Work Phone: OB/Gynecology Comment on above: Anemia during pregna ncy in second trimester (Primary Dx); Obesity in ; 25 weeks gestation of Start: 03-17-2022 End: 03-17-2022 Patient encounter procedure Vivian Vergara MD Work Phone: OB/Gynecology Comment on above: Anemia during pregna ncy in second trimester (Primary Dx); 21 weeks gestation of Marginal insertion o f umbilical cord affecting management of mother (Primary Dx) Start: 07-16-2017 Ambulatory Lzi Ortiz lity:[facility] Start: 06-24-2017 Ambulatory Liz Ortiz lity:[facility] Procedures Date Procedure Procedure Detail Performing Clinician Start: 01-27-2025 Us pelvic nonobstetr ic real-time image complete Claribel Hood MD Work Phone: Start: 07-15-2022 URINE OB DIP B/O Vivian Vergara MD Work Phone: Start: 07-07-2022 URINE OB DIP B/O Vivian Vergara MD Work Phone: Start: 06-30-2022 URINE OB DIP B/O Vivian Tonya Vergara MD Work Phone: Start: 05-28-2022 URINE OB DIP B/O Vivian Tonya Vergara MD Work Phone: Start: 05-14-2022 URINE OB DIP B/O Vivian Tonya Vergara MD Work Phone: Start: 04-25-2022 URINE OB DIP B/O Vivian Vergara MD Work Phone: Start: 03-17-2022 URINE OB DIP B/O Vivian Tonya Vergara MD Work Phone: Plan of Treatment Date Care Activity Detail Author Start: 04-25-2032 Urine microalbumin profile [facility] Start: 09-09-2027 HPV Testing HPV Testing [facility] Start: 09-09-2027 PAP TESTING PAP TESTING [facility] Start: 09-09-2027 Screening for malign ant neoplasm of cervix Cervical Cancer Screening [facility] Start: 08-26-2027 HPV TESTING HPV TESTING [facility] Start: 08-26-2027 PAP TESTING PAP TESTING [facility] Start: 01-07-2027 HPV TESTING HPV TESTING [facility] Start: 01-07-2027 PAP TESTING PAP TESTING [facility] Start: 02-06-2025 End: 02-06-2025 Patient encounter procedure 02/06/2025 8:40 AM EDT Office Visit OB/Gynecology [address] [place] [address] Izzy Langston MD [address] [place] [address] Annual OB/Gynecology Comment on above: Annual Start: 01-27-2025 End: 01-27-2025 Manual pelvic examination 01/27/2025 10:00 AM EST Procedure OB/Gynecology [address] [place] [address] 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 [address] yearly exam OB/Gynecology Comment on above: yearly exam Start: 07-31-2024 Covid-19 Vaccine ( season) Covid-19 Vaccine ( season) [facility] Start: 07-31-2024 Influenza vaccination Influenza Vacc ine (#1) [facility] Start: 03-22-2024 [facility] Start: 03-22-2024 [facility] Start: 03-22-2024 Bacteria identified in Urine by Culture [facility] Start: 07-31-2023 Influenza vaccination Influenza Vacc ine (#1) [facility] Start: 11-30-2022 DEPRESSION ASSESSMENT DEPRESSION ASS ESSMENT [facility] Start: 07-31-2022 Influenza vaccination C [facility] Start: 04-25-2022 End: 06-25-2022 GEST GLUC JEREMIHA, 3-HR, 100 GM, FASTING GEST GLUC JEREMIAH, 3-HR, 100 GM, FASTING Lab Routine Abnormal glucose tolerance test (GTT) during , antepartum Expected: 04/25/2022, Expires: 06/25/2022 [facility] Work Phone: Comment on above: Expected: 04/25/2022 , Expires: 06/25/2022 Start: 04-14-2022 End: 06-14-2022 CBC W Auto Differential panel - Blood CBC + DIFF Lab Routine 25 weeks gestation of Expected: 04/14/2022, Expires: 06/14/2022 [facility] Work Phone: Comment on above: Expected: 04/14/2022 , Expires: 06/14/2022 Start: 04-14-2022 End: 06-14-2022 GEST GLUC SCREEN, 1-HR, 50 GM, NON-FASTING GEST GLUC SCREEN, 1-HR, 50 GM, NON-FASTING Lab Routine 25 weeks gestation of Expected: 04/14/2022, Expires: 06/14/2022 [facility] Work Phone: Comment on above: Expected: 04/14/2022 , Expires: 06/14/2022 Start: 04-14-2022 End: 06-14-2022 SYPHILIS TOTAL W/REFLEX SYPHILIS TOTAL W/REFLEX Lab Routine 25 weeks gestation of Expected: 04/14/2022, Expires: 06/14/2022 [facility] Work Phone: Comment on above: Expected: 04/14/2022 , Expires: 06/14/2022 Start: 11-30-2021 DEPRESSION ASSESSMENT DEPRESSION ASS ESSMENT [facility] Start: 2006 Hepatitis B Vaccine (1 of 3 - 19+ 3-dose series) Hepatitis B Vaccine (1 of 3 - 19+ 3-dose series) [facility] Start: 2006 Urine microalbumin profile DTAP,TDAP,TD (1 - Tdap) [facility] Start: 2005 Anxiety Screening Anxiety Screening [facility] Start: 2005 Depression Screening Depression Scre ening [facility] Start: 1999 Adult depression screening assessment DEPRESSION SCREENING [facility] Start: 1992 COVID-19 VACCINE (#1) COVID-19 VACCI NE (#1) [facility] Start: 1992 COVID-19 VACCINE (1) COVID-19 VACCIN E (1) [facility] Start: 1987 COVID-19 VACCINE (#1) COVID-19 VACCI NE (#1) [facility] Start: 1987 HEPATITIS B (1 of 3 - 3-dose series) HEPATITIS B (1 of 3 - 3-dose series) [facility] Start: 1987 Hepatitis B Vaccine (1 of 3 - 3-dose series) Hepatitis B Vaccine (1 of 3 - 3-dose series) [facility] BACTERIAL VAGINOSIS AMPLIFICATION BACTERIAL VAGINOSIS AMPLIFICATION Lab Routine Vaginal irritation 06/30/2022 10:41 AM EDT [facility] Work Phone: NELDA / TRICHOMONA S AMPLIFICATION NELDA / TRICHOMONAS AMPLIFICATION Lab Routine Vaginal irritation 06/30/2022 10:41 AM EDT [facility] Work Phone: Chlamydia trachomatis+Neisseria gonorrhoeae DNA [Presence] in Unspecified specimen by ZENON with probe detection GONORRHEA/CHLAMYDIA NAAT Lab Routine Screen for STD (sexually transmitted disease) 10/17/2023 10:16 AM EST [facility] Work Phone: End: 07-31-2022 nonstress test NON-STRESS TEST Procedures Routine Obesity in AMA (advanced maternal age) multigravida 35+, third trimester Once per week for 3 Occurrences starting 06/30/2022 until 07/31/2022 [facility] Work Phone: Comment on above: Once per week for 3 Occurrences starting 06/30/2022 until 07/31/2022 NEXPLANON REMOVAL NEXPLANON DAISHA CRYSTAL Procedures Routine Nexplanon removal Ordered: 01/13/2023 [facility] Work Phone: Comment on above: Ordered: 01/13/2023 OBSTETRIC ULTRASOUND [facility] OBSTETRIC ULTRASOUND [facility] Anc Imaging Routine Marginal insertion of umbilical cord affecting management of mother Ordered: 03/17/2022 [facility] Work Phone: Comment on above: Ordered: 03/17/2022 OBSTETRIC ULTRASOUND [facility] OBSTETRIC ULTRASOUND [facility] Anc Imaging Routine 31 weeks gestation of AMA (advanced maternal age) multigravida 35+, third trimester Ordered: 05/28/2022 [facility] Work Phone: Comment on above: Ordered: 05/28/2022 PAP FLUID CERVICAL SCREENING PAP FLUID CERVICAL SCREENING Lab Routine Encounter for screening for malignant neoplasm of cervix Special screening examination for human papillomavirus (HPV) 08/26/2022 11:32 AM EDT [facility] Work Phone: PAP FLUID CERVICAL SCREENING PAP FLUID CERVICAL SCREENING Lab Routine Encounter for repeat Pap smear due to previous insufficient cervical cells Ordered: 09/09/2022 [facility] Work Phone: Comment on above: Ordered: 09/09/2022 Patient Education ED Cystitis Female [facility] Work Phone: ROUTINE, GR OUP B STREP PCR ROUTINE, GROUP B STREP PCR Microbiology Routine AMA (advanced maternal age) multigravida 35+, third trimester 36 weeks gestation of 06/30/2022 10:41 AM EDT [facility] Work Phone: URINE OB DIP B/O URINE OB DIP B/ O Lab Routine 25 weeks gestation of Ordered: 04/14/2022 [facility] Work Phone: Comment on above: Ordered: 04/14/2022 [facility] Immunizations Immunization Date Immunization Notes Care Provider Fa cility 04-25-2022 tetanus toxoid, redu eliza diphtheria toxoid, and acellular pertussis vaccine, adsorbed Vivian Vergara MD Work Phone: [facility] Payers Date Payer Category Payer Self-pay 1985 Unknown [id number] 1985 Unknown [id number] Self-pay [id number] Unknown [id number] Social History Date Type Detail Facility Start: 08-04-2018 End: 10-17-2023 Tobacco smoking status NHIS Never smoked tobacco [facility] Start: 08-04-2018 End: 10-17-2023 Tobacco use and exposure Smokeless tobacco non-user [facility] Start: 03-17-2022 End: 01-13-2025 Alcohol intake Current non-drinker of alcohol (finding) [facility] Start: 10-31-2021 [facility] Start: 1985 Sex Assigned At Not on file [facility] Start: 03-07-2022 End: 08-26-2022 Exposure to SARS-CoV-2 (event) Not sure [facility] Work Phone: Tobacco smoking status No Smoking Status Entered [facility] Start: 1985 Sex Assigned At Female [facility] Start: 10-17-2023 End: 02-06-2025 History of Social function [facility] Start: 10-17-2023 End: 02-06-2025 Tobacco use panel [facility] National Score (1-100), lower number is lower risk 43 [facility] Start: 03-22-2024 Tobacco smoking status NHIS Unknown if ever smoked [facility] NEGATED: Highlighted rowStart: NINF History of tobacco use Passive smoker [facility] Work Phone: Functional Status Date Assessment Result Facility 03-20-2024 Functional Status Independent [facility] 03-20-2024 Functional Status Standard Safety ID band on [facility] 08-09-2023 Functional Status Independent [facility] 08-09-2023 Functional Status Ambulation in [facility] Mental Status Date Assessment Result Facility 03-20-2024 Mental Status Orientation Oriented x 4 [facility] 03-20-2024 Mental Status [facility] 08-09-2023 Mental Status Orientation Oriented x 4 [facility] 08-09-2023 Mental Status [facility] Clinical Notes 03-17-2022 to 02-06-2025 Izzy Langston MD - 02/06/2025 9:03 AM Lucy Pride MD - 01/30/2025 2:57 PM Claribel Arechiga MD - 01/13/2025 9:39 AM EST Note Date & Type Note Facility 02-06-2025 Note HNO ID: [id number] Author: IZZY LANGSTON MD Service: ? Author Type: Physician Type: Progress Notes Filed: 02/06/2025 12:29 Note Text: Chula Aguilera is a 39 year old female who presents for problem visit HPI: F/u for US. able to translate. Had an US for abd/pelvis pain since of last child. Occurs when lying on her stomach or lifting. Not associated with periods. Vaginal deliveries but did have an appendectomy and cholecystectomy. Us is normal and shows only a small fibroid. Discussed likely abdominal wall source for the pain. Possible small hernia or diastasis. Avoid lifting heavy objects. Can wear a compression shirt to help with support. OB History Gravida6 Para5 Term4 Preterm1 AB1 Living4 SAB1 IAB0 Ectopic0 Multiple0 Live Births5 Comment: No surgeries for missed abs and 3 vaginal deliveries one passed at delivery [employer] History LMP: 01/12/2025, Having periods Age at Menarche: 15 Age at First : Age at Menopause: [employer] History Comments: Sexual Activity: Yes; Male Contraception: Pill Menstrual Tracking History Flowsheet Row Office Visit from 01/13/2025 in OB/Gynecology Period Cycle (Days) 28 Period Duration (Days) 5 Menstrual Flow Moderate PAST MEDICAL HISTORY Diagnosis Date Gestational diabetes Trichinosis PAST SURGICAL HISTORY Procedure Laterality Date APPENDECTOMY CHOLECYSTECTOMY FAMILY HISTORY Problem Relation Age of Onset No Known Problems Mother No Known Problems Father Social History Tobacco Use Smoking status: Never Passive exposure: Never Smokeless tobacco: Never Vaping Use Vaping status: Never Used Substance Use Topics Alcohol use: No Drug use: No Current Outpatient Medications Medication Sig norgestimate 0.25 mg-ethinyl estradiol 35 mcg (SPRINTEC) 0.25-35 mg-mcg per tablet Take 1 tablet by mouth once daily. ibuprofen (MOTRIN ORAL) Take by mouth. Aocesjnf-Oz-Cye-Fe-FA tab Take 1 tablet by mouth once daily. (Patient not taking: Reported on 07/24/2022) No current facility-administered medications for this visit. Allergies As of Date: 02/06/2025 (No Known Allergies) Fully Assessed 01/13/2025 REVIEW OF SYSTEMS Abdomen: No bloating, early satiety, indigestion, or increased flatulence. No abdominal pain, nausea, vomiting, diarrhea, or constipation. Bladder: No dysuria, gross hematuria, urinary frequency, urinary urgency, or incontinence. Breast: No breast lumps, nipple d/c, overlying skin changes, redness or skin retraction. Expanded ROS: N/A Allergies and current medication updated:Yes SENSITIVE EXAM: The sensitive examination was discussed with the Patient or Patient's Authorized Lamp Inspector. As applicable, any other physician, advance practice provider, medical student, or other health professional student that will be observing or involved in the sensitive examination for educational or training purposes was discussed with the Patient or Authorized Lamp Inspector. The Patient or Authorized Lamp Inspector has agreed to proceed with the sensitive examination. (Sensitive examination includes inspection and/or palpation of the breasts, pelvis, prostate and anorectal regions). EXAM: LMP 01/12/2025 GENERAL: pleasant, female in no apparent distress HEENT: Normocephalic, atraumatic, mucus membranes moist, and no lesions NECK: full range of motion DERMATOLOGY: Normal, without lesions, non-icteric, and non-hirsute BREAST: deferred CHEST: Normal inspiratory effort ABDOMEN: Benign, soft, non-tender, no masses, and guarding Absent PELVIC: deferred BIMANUAL: deferred NEURO: alert and oriented x3,exam grossly non-focal EXTREMITIES: normal ASSESSMENT AND PLAN: Assessment AND Plan Abdominal wall pain Supportive belt or clothing Avoid heavy lifting Izzy Langston MD [facility] 02-06-2025 History of Presen t illness Narrative Chula Aguilera is a 39 year old female who presents for problem visit HPI: F/u for US. able to translate. Had an US for abd/pelvis pain since of last child. Occurs when lying on her stomach or lifting. Not associated with periods. Vaginal deliveries but did have an appendectomy and cholecystectomy. Us is normal and shows only a small fibroid. Discussed likely abdominal wall source for the pain. Possible small hernia or diastasis. Avoid lifting heavy objects. Can wear a compression shirt to help with support. OB History Gravida6 Para5 Term4 Preterm1 AB1 Living4 SAB1 IAB0 Ectopic0 Multiple0 Live Births5 Comment: No surgeries for missed abs and 3 vaginal deliveries one passed at delivery [employer] History LMP: 01/12/2025, Having periods Age at Menarche: 15 Age at First : Age at Menopause: [employer] History Comments: Sexual Activity: Yes; Male Contraception: Pill Menstrual Tracking History Flowsheet Row Office Visit from 01/13/2025 in OB/Gynecology Period Cycle (Days) 28 Period Duration (Days) 5 Menstrual Flow Moderate PAST MEDICAL HISTORY Diagnosis Date Gestational diabetes Trichinosis PAST SURGICAL HISTORY Procedure Laterality Date APPENDECTOMY CHOLECYSTECTOMY FAMILY HISTORY Problem Relation Age of Onset No Known Problems Mother No Known Problems Father Social History Tobacco Use Smoking status: Never Passive exposure: Never Smokeless tobacco: Never Vaping Use Vaping status: Never Used Substance Use Topics Alcohol use: No Drug use: No Current Outpatient Medications Medication Sig norgestimate 0.25 mg-ethinyl estradiol 35 mcg (SPRINTEC) 0.25-35 mg-mcg per tablet Take 1 tablet by mouth once daily. ibuprofen (MOTRIN ORAL) Take by mouth. Gkbbuoov-Gr-Nsu-Fe-FA tab Take 1 tablet by mouth once daily. (Patient not taking: Reported on 07/24/2022) No current facility-administered medications for this visit. Allergies As of Date: 02/06/2025 (No Known Allergies) Fully Assessed 01/13/2025 REVIEW OF SYSTEMS Abdomen: No bloating, early satiety, indigestion, or increased flatulence. No abdominal pain, nausea, vomiting, diarrhea, or constipation. Bladder: No dysuria, gross hematuria, urinary frequency, urinary urgency, or incontinence. Breast: No breast lumps, nipple d/c, overlying skin changes, redness or skin retraction. Expanded ROS: N/A Allergies and current medication updated:Yes SENSITIVE EXAM: The sensitive examination was discussed with the Patient or Patient's Authorized Lamp Inspector. As applicable, any other physician, advance practice provider, medical student, or other health professional student that will be observing or involved in the sensitive examination for educational or training purposes was discussed with the Patient or Authorized Lamp Inspector. The Patient or Authorized Lamp Inspector has agreed to proceed with the sensitive examination. (Sensitive examination includes inspection and/or palpation of the breasts, pelvis, prostate and anorectal regions). EXAM: LMP 01/12/2025 GENERAL: pleasant, female in no apparent distress HEENT: Normocephalic, atraumatic, mucus membranes moist, and no lesions NECK: full range of motion DERMATOLOGY: Normal, without lesions, non-icteric, and non-hirsute BREAST: deferred CHEST: Normal inspiratory effort ABDOMEN: Benign, soft, non-tender, no masses, and guarding Absent PELVIC: deferred BIMANUAL: deferred NEURO: alert and oriented x3,exam grossly non-focal EXTREMITIES: normal ASSESSMENT AND PLAN: Assessment & Plan Abdominal wall pain Supportive belt or clothing Avoid heavy lifting Izzy Langston MD documented in this encounter [facility] 01-30-2025 Note HNO ID: [id number] Author: LUCY BRITO MD Service: ? Author Type: Physician Type: Progress Notes Filed: 01/30/2025 14:59 Note Text: Chula Aguilera is a 39 year old female who presented for tower helper ultrasound today. Encounter Diagnosis ICD-10-CM 1. Pelvic pain R10.2 Please see report under imaging tab. Lucy Brito MD January 30, 2025 2:57 PM [facility] 01-30-2025 History of Presen t illness Narrative Chula Aguilera is a 39 year old female who presented for tower helper ultrasound today. Encounter Diagnosis ICD-10-CM 1. Pelvic pain R10.2 Please see report under imaging tab. Lucy Brito MD January 30, 2025 2:57 PM documented in this encounter [facility] 01-13-2025 Note HNO ID: [id number] Author: CLARIBEL HOOD MD Service: ? Author Type: Physician Type: Progress Notes Filed: 01/13/2025 10:11 Note Text: Chula is a 39 year old who presents for an annual gynecologic exam. Patient reports pelvic pain since the of her last child. Still get period: Yes Bleeding amount bothersome: No Bleeding between periods: No Period symptoms: Cramps; Mood change Time with current partner: 8 years Number of lifetime partners: 3 control frequency: Always HPV vaccine: Unsure; HPV:negative 2021 Last pap smear: 2021 normal History of abnormal pap: Yes, history of abnormal PAP smears 2015 Bothersome pelvic pain: Yes Last mammogram: never OB History Gravida6 Para5 Term4 Preterm1 AB1 Living4 SAB1 IAB0 Ectopic0 Multiple0 Live Births5 Comment: No surgeries for missed abs and 3 vaginal deliveries one passed at delivery [employer] History LMP: 01/12/2025, Having periods Age at Menarche: 15 Age at First : Age at Menopause: [employer] History Comments: Sexual Activity: Yes; Male Contraception: Pill Menstrual Tracking History Flowsheet Row Office Visit from 01/13/2025 in OB/Gynecology Period Cycle (Days) 28 Period Duration (Days) 5 Menstrual Flow Moderate PAST MEDICAL HISTORY Diagnosis Date Gestational diabetes Trichinosis PAST SURGICAL HISTORY Procedure Laterality Date APPENDECTOMY CHOLECYSTECTOMY FAMILY HISTORY Problem Relation Age of Onset No Known Problems Mother No Known Problems Father SOCIAL HISTORY Social History Tobacco Use Smoking status: Never Passive exposure: Never Smokeless tobacco: Never Vaping Use Vaping status: Never Used Substance Use Topics Alcohol use: No Drug use: No REVIEW OF SYSTEMS Abdomen: No abdominal pain, nausea, vomiting, diarrhea, or constipation. No bloating, early satiety, indigestion, or increased flatulence. Bladder: No dysuria, gross hematuria, urinary frequency, urinary urgency, or incontinence. Breast: No breast lumps, nipple d/c, overlying skin changes, redness or skin retraction. Allergies and current medication updated:Yes SENSITIVE EXAM: The sensitive examination was discussed with the Patient or Patient's Authorized Lamp Inspector. As applicable, any other physician, advance practice provider, medical student, or other health professional student that will be observing or involved in the sensitive examination for educational or training purposes was discussed with the Patient or Authorized Lamp Inspector. The Patient or Authorized Lamp Inspector has agreed to proceed with the sensitive examination. (Sensitive examination includes inspection and/or palpation of the breasts, pelvis, prostate and anorectal regions). EXAM: BP 118/76 Wt 212 lb (96.2kg) LMP 01/12/2025 GENERAL: pleasant, female in no apparent distress BREAST: soft, non-tender, symmetric, no dominant mass, normal nipple-areolar complex, no lymphadenopathy, and no nipple discharge CHEST: Normal inspiratory effort ABDOMEN: soft, non-tender, and no masses PELVIC: patient declined due to menses BIMANUAL: patient declined due to menses RECTOVAGINAL: deferred. NEURO: alert and oriented x3,exam grossly non-focal EXTREMITIES: normal ASSESSMENT/PLAN: 1) Health maintenance: Pap/HPV up to date. Mammogram starting age 40. Nutrition, exercise and routine health maintenance exams reviewed. 2) Contraception: combined hormonal contraceptives - reviewed increased risks of stroke/DVT in women over 35. Contraceptive options reviewed and information provided. 3) STD screening: Declined STD check. 4) Follow up one year or sooner as needed 5) Pelvic pain - check pelvic US Claribel Hood MD [facility] 01-13-2025 History of Presen t illness Narrative Chula is a 39 year old who presents for an annual gynecologic exam. Patient reports pelvic pain since the of her last child. Still get period: Yes Bleeding amount bothersome: No Bleeding between periods: No Period symptoms: Cramps; Mood change Time with current partner: 8 years Number of lifetime partners: 3 control frequency: Always HPV vaccine: Unsure; HPV:negative 2021 Last pap smear: 2021 normal History of abnormal pap: Yes, history of abnormal PAP smears 2016 Bothersome pelvic pain: Yes Last mammogram: never OB History Gravida6 Para5 Term4 Preterm1 AB1 Living4 SAB1 IAB0 Ectopic0 Multiple0 Live Births5 Comment: No surgeries for missed abs and 3 vaginal deliveries one passed at delivery [employer] History LMP: 01/12/2025, Having periods Age at Menarche: 15 Age at First : Age at Menopause: [employer] History Comments: Sexual Activity: Yes; Male Contraception: Pill Menstrual Tracking History Flowsheet Row Office Visit from 01/13/2025 in OB/Gynecology Period Cycle (Days) 28 Period Duration (Days) 5 Menstrual Flow Moderate PAST MEDICAL HISTORY Diagnosis Date Gestational diabetes Trichinosis PAST SURGICAL HISTORY Procedure Laterality Date APPENDECTOMY CHOLECYSTECTOMY FAMILY HISTORY Problem Relation Age of Onset No Known Problems Mother No Known Problems Father SOCIAL HISTORY Social History Tobacco Use Smoking status: Never Passive exposure: Never Smokeless tobacco: Never Vaping Use Vaping status: Never Used Substance Use Topics Alcohol use: No Drug use: No REVIEW OF SYSTEMS Abdomen: No abdominal pain, nausea, vomiting, diarrhea, or constipation. No bloating, early satiety, indigestion, or increased flatulence. Bladder: No dysuria, gross hematuria, urinary frequency, urinary urgency, or incontinence. Breast: No breast lumps, nipple d/c, overlying skin changes, redness or skin retraction. Allergies and current medication updated:Yes SENSITIVE EXAM: The sensitive examination was discussed with the Patient or Patient's Authorized Lamp Inspector. As applicable, any other physician, advance practice provider, medical student, or other health professional student that will be observing or involved in the sensitive examination for educational or training purposes was discussed with the Patient or Authorized Lamp Inspector. The Patient or Authorized Lamp Inspector has agreed to proceed with the sensitive examination. (Sensitive examination includes inspection and/or palpation of the breasts, pelvis, prostate and anorectal regions). EXAM: BP 118/76 Wt 212 lb (96.2kg) LMP 01/12/2025 GENERAL: pleasant, female in no apparent distress BREAST: soft, non-tender, symmetric, no dominant mass, normal nipple-areolar complex, no lymphadenopathy, and no nipple discharge CHEST: Normal inspiratory effort ABDOMEN: soft, non-tender, and no masses PELVIC: patient declined due to menses BIMANUAL: patient declined due to menses RECTOVAGINAL: deferred. NEURO: alert and oriented x3,exam grossly non-focal EXTREMITIES: normal ASSESSMENT/PLAN: 1) Health maintenance: Pap/HPV up to date. Mammogram starting age 40. Nutrition, exercise and routine health maintenance exams reviewed. 2) Contraception: combined hormonal contraceptives - reviewed increased risks of stroke/DVT in women over 35. Contraceptive options reviewed and information provided. 3) STD screening: Declined STD check. 4) Follow up one year or sooner as needed 5) Pelvic pain - check pelvic US Claribel Hood MD documented in this encounter [facility] 11-15-2024 Telephone encount er Note Last OV 01/20/23. Pt's significant other calling for refill. Advised him Pt needs appt. Transferred to [facility] as financial clearance is needed to get appt scheduled. Advised him would send refill request to provider until Pt can be seen for appt. Please address in AG absence. Requested Prescriptions Pending Prescriptions Disp Refills norgestimate 0.25 mg-ethinyl estradiol 35 mcg (SPRINTEC) 0.25-35 mg-mcg per tablet 84 tablet 0 Sig: Take 1 tablet by mouth once daily. Ruth Rodriguez RN [facility] 11-15-2024 Miscellaneous Notes Formattin g of this note is different from the original. Last OV 01/20/23. Pt's significant other calling for refill. Advised him Pt needs appt. Transferred to [facility] as financial clearance is needed to get appt scheduled. Advised him would send refill request to provider until Pt can be seen for appt. Please address in AG absence. Requested Prescriptions Pending Prescriptions Disp Refills norgestimate 0.25 mg-ethinyl estradiol 35 mcg (SPRINTEC) 0.25-35 mg-mcg per tablet 84 tablet 0 Sig: Take 1 tablet by mouth once daily. Ruth Rodriguez RN documented in this encounter [facility] 03-22-2024 Discharge summary Note Date/Time March 22, 2024 3:25pm [facility] Medical Records Department [address] [place] [address] Emergency Department Summary 03/22/24 MR#: [id number] Acct: [id number] Name: DIGNA AGUILERA Rep #:[id number] : 1985 38 From: Edu Mendez PCP: Status:REG ER Location: ED HPI History of Present Illness Chief Complaint: Complaint Informant: patient and spouse/S.O. Onset/Context/Timing Onset: Days (5) Context: Gradual Onset Timing: Continuous Quality: Cramping Location: Lower abdomen Worsened by: Nothing Relieved by: Nothing Narrative Narrative: Patient presents with lower abdominal pain and urinary tract infection for the past few days. states that the patient was seen here 4 days ago and wasdiagnosed with urinary tract infection. Patient was started on Keflex at that time states that patient was still having discomfort 3 days ago and [facility]. Patient had a CAT scan there which was normal. Patient was given hydrocodone for her pain. Patient has had minimal improvementdespite taking antibiotics and analgesics. PFSH PFSH Medical History no medical history no medical history Home Medications nitrofurantoin monohydrate/macrocrystals 100 mg capsule 100 mg PO Q12 #10 CAPSULES 03/22/24 [Rx Last Taken Unknown] Allergy/AdvReac Type Severity Reaction Status Date / Time No Known Allergies Allergy Verified 03/22/24 13:36 Surgical History no surgical history no surgical history Social History Smoking Status: Never smoker ROS ROS ED Constitutional Constitutional ED: Reports chills; Denies fever(s) Eyes Eyes: Denies blurry vision or change in vision ENT ENT ED: Denies rhinorrhea or sore throat Cardiovascular Cardiovascular: Denies chest pain or palpitations Respiratory/Chest Respiratory/Chest: Denies cough or dyspnea Gastrointestinal Gastrointestinal: Reports constipation and nausea; Denies vomiting Genitourinary Genitourinary ED: Reports dysuria; Denies hematuria Musculoskeletal Musculoskeletal: Reports back pain; Denies neck pain Integumentary Denies abscess or rash Neurologic Neurologic: Denies headache(s) or weakness Allergic/Immunologic Allergic/Immunologic ED: Denies mouth swelling or urticaria EXAM Physical Exam Const Vital Signs: 03/22/24 13:36 03/22/24 15:35 03/22/24 17:00 Temperature 96.4 F L Temperature Source Temporal Pulse Rate 79 88 78 Respiratory Rate 18 16 16 Blood Pressure 134/71 H 112/65 135/78 H Blood Pressure Mean 92 80 97 Pulse Ox 100 97 97 Oxygen Delivery Method Room Air Room Air Room Air Positive well nourished and well developed General Appearance ED: well developed and NAD HEENT Reports moist mucous membranes Neck supple and no JVD Resp normal respiratory effort and clear to auscultation bilaterally Cardio regular rate and regular rhythm GI non-distended Palpation: soft and tender LLQ, RLQ and suprapubic; Negative for guarding or rebound tenderness present Neuro oriented x3, CN's II-XII intact bilaterally and no sensory deficits noted Sensorium / Orientation: alert Motor Exam: strength 5/5 throughout Psych mental status grossly normal MDM MDM MDM Narrative Medical decision making narrative: Differential diagnosis includes urinary tract infection, ectopic , and pyelonephritis. CBC will be obtained to assess for leukocytosis and anemia. Basic metabolic profile will be obtained to assess for electrolyte abnormality and renal function. Urinalysis will be obtained to assess for urinary tract infection and hematuria. Serum hCG will be obtained to assess for . Since patient had a recent CT scan done 3 days ago, I do not feel that this is necessary to be repeated again today. History & Record Review Additional record(s) reviewed:: No prior records Lab Data Attestation: I reviewed the patient's lab results. Lab results narrative: CBC was reviewed today. White blood cell count was within normal limits. Thereis a mild anemia with a hemoglobin of 11.2 and hematocrit of 36.4. Platelets are normal. Basic metabolic profile was reviewed and was within normal limits. Urinalysis was reviewed. There are positive nitrites. Leukocyte esterase was 25. There are 05 white blood cells and no bacteria seen. Urine culture was obtained. Labs: Laboratory Results - last 24 hr 03/22/24 03/22/24 15:30 15:33 WBC 6.9 RBC 4.63 Hgb 11.2 L Hct 36.4 L MCV 78.6 L MCH 24.2 L MCHC 30.8 L RDW Std Deviation 42.5 RDW Coeff of Jesus 14.8 H Plt Count 349 MPV 9.1 Immature Gran % (Auto) 0.300 Neut % (Auto) 64.3 Lymph % (Auto) 29.7 Juncos % (Auto) 5.2 Eos % (Auto) 0.1 Baso % (Auto) 0.4 Absolute Neuts (auto) 4.4 Absolute Lymphs (auto) 2.05 Nucleated RBC % 0 Sodium 137 Potassium 4.0 Chloride 106 Carbon Dioxide 27.0 Anion Gap 4 L BUN 5 L Creatinine 0.74 Est GFR (MDRD) Af Amer 114 Est GFR (MDRD) Non-Af 94 BUN/Creatinine Ratio 6.7 L Glucose 95 Calcium 9.0 Urine Color Yellow Urine Clarity Clear Urine pH 6.5 Ur Specific Colona 1.005 Urine Protein 30 H Urine Glucose (UA) Normal Urine Ketones Negative Urine Occult Blood Negative Urine Nitrite Positive H Urine Bilirubin 1 H Urine Urobilinogen 4 H Ur Leukocyte Esterase 25 H Urine RBC 0 SEEN Urine WBC 0-5 SEEN Ur Squamous Epith Cells 0-5 SEEN Urine Bacteria 0 SEEN Urine Mucus 0 SEEN Treatment and Re-Evaluation :: states that patient was seen here 4 days ago. I do not find any record of this in the computer. Therefore, I cannot locate any culture results or if this was performed. Patient was given a dose of Rocephin. Patient was given a dose of morphine. I was able to find the patient's previous visit from 03/19/2024. There was a urine culture which indicated resistance to cefoxitin. Because of this, patientwas switched to Macrobid which it is sensitive to. Patient was given her first dose here. Patient was instructed to stop taking the Keflex. Patient was instructed to follow-up with her primary care physician in 5 to 7 days. Patientand family understood and were agreeable with the plan. All questions were answered. Discharge Plan Triage Chief Complaint: Complaint ED Provider: Edu Vargas Dx/Rx/DC Orders Clinical Impression: Urinary tract infection, Pelvic pain Instructions: ED Cystitis Female Adult Prescriptions: New nitrofurantoin monohyd/m-cryst [nitrofurantoin monohyd/m-cryst] 100 mg capsule 100 mg PO Q12 Qty: 10 0RF Disposition Disposition: Home, Self Care What to do if you have Problems For any increased pain, shortness of breath, bleeding, nausea or vomiting, chestpain, or any unexpected problems, contact your Primary Care Provider. Call [facility] ([phone]) or report to the closest Emergency Room. Call 911 if necessary. 03/22/241823 <Electronically signed by Edu Vargas DO> Cosigner Signature (if applicable): CC: ~ Signed [facility] Work Phone: [phone]) 151-195704-21-2024 Hospital Discharge instructions Patient Education 03/20/2024 09:32:20 Urinary Tract Infections in Women(Czech) Infecciones de las v as urinarias en las mujeres Las infecciones de las v as urinarias suelen ocurrir a causa de bacterias que invaden las v as urinarias, sree sea desde fuera del cuerpo o desplaz ndose desde el recto o la vagina hasta el interior de la uretra. La anatom a de la samara hace m s f cil la entrada de bacterias en las v as urinarias, por lo que estas infecciones son m s frecuentes en las mujeres que en los hombres. El s ntoma m s com n de la mayor a de estas infecciones es el dolor en las v as urinarias, jarrett la jessica manera de saber con certeza si hay nicole infecci n es hacer un cultivo de orina (urocultivo). Sujit tipos de infecciones de las v as urinarias Cistitis: La infecci n de la vejiga (cistitis) es la forma de infecci n urinaria m s com n en las mujeres. Puede provocar un deseo urgente o frecuente de orinar, as cyndy fiebre, dolor, escozor al orinar y jose en la orina. Uretritis: La uretritis consiste en la inflamaci n de la uretra. Puede causar dolor en la parte inferior del vientre o de la espalda, as cyndy un deseo urgente o frecuente de orinar. Pielonefritis: La pielonefritis es nicole infecci n de los ri ones que puede causar da os graves a losmismos si se marcial sin tratar. En los casos m s graves puede requerir hospitalizaci n. Los s ntomas pueden consistir en fiebre y dolor en la parte inferior de la espalda. Medicamentos para tratar nicole infecci n de las v as urinarias La mayor a de las infecciones de las v as urinarias se tratan con antibi ticos para eliminar las bacterias. La duraci n del tratamiento con antibi ticos depender del tipo de infecci n que tenga, y puede ser de solo 3 d as. Si tiene infecciones urinarias frecuentes, podr a ser necesario un tratamiento antibi anne con dosis reducida leighann varios meses. [place] los antibi ticos hasta terminarlos y siga exactamente las indicaciones que le hayan dado. De lo contrario la infecci n puede persistir y hacerse m s dif cil de tratar. Cambios del estilo de ramana para tratar y prevenir las infecciones urinarias Los cambios de estilo de ramana descritos a continuaci n pueden ayudarle a combatir cordon infecci n actual de las v as urinarias y a prevenir nuevas infecciones en el futuro: Romina abundante l quido, cyndy agua, jugo de fruta u otras bebidas sin cafe na. [place] ayuda a eliminarlas bacterias. Vac e cordon vejiga. Siempre vac e la vejiga cuando sienta deseo de hacerlo y antes de acostarse. La orina que permanece en la vejiga promueve la infecci n. Trate de orinar antes y despu s de tener relaciones sexuales. Practique nicole buena higiene personal. L mpiese sree con un movimiento desde adelante hacia atr s despu s de usar el inodoro. [place] ayuda aevitar que las bacterias entren a la uretra. Utilice condones leighann el sexo. [place] ayuda a prevenir las infecciones en las v as urinarias provocadas por bacterias transmitidas sexualmente. Adem s, evite el uso de espermicidas en las relacionessexuales, ya que pueden aumentar el riesgo de infecciones. Elija otra forma de control de la natalidad. Las mujeres que tienden a desarrollar infecciones en las v as urinarias despu s del sexo podr an utilizar un antibi anne preventivo de dosis baja. Aseg rese de hablar sobre estas opciones con cordon proveedor de atenci n m dica. Vaya a todas las visitas de control que le recomienden con cordon proveedor de atenci n m dica para querevise si las bacterias que causan la infecci n felipe sido eliminadas, y para que le d tratamiento duane problemas reaparecen. [id number] [employer] [place] [id number]. Todos los derechos reservados. Esta informaci n no pretende sustituir la atenci n m dica profesional. S lo cordon m dico puede diagnosticar y tratar un problema de sea. Follow Up Care 03/20/2024 07:53:55 With:JEZ ENGLISH Address:Unknown When:2-4 days [facility] 04-21-2024 Note Discharge Instructions Thank you for allowing [place] to assist you with your healthcare needs. The following is importantdischarge information regarding your hospital visit. Diagnosis from Today's Visit Abdominal pain Abdominal pain What to Do Next Instructions from Your Care Team No qualifying data available. Post Acute Orders No qualifying data available. You Need to Schedule the Following Appointments Follow Up with JEZ ENGLISH When Within 2-4 days Allergies NKA Medications Please ask your primary doctor or pharmacist before taking any other medication not listed, including over the counter drugs, herbal medications, vitamins and or supplements as they may interact withyour home medications. What How Much When Why Instructions Last Dose New acetaminophen-hydrocodone ([place] 325- 5 mg oral tablet) 1 tab(s) by mouth Every 6 hours as needed for as needed for pain Abdominal pain Duration: 3 Days Printed Prescription New ibuprofen (ibuprofen 600 mg oral tablet) 1 tab(s) by mouth Every 8 hours Duration: 10 Days Printed Prescription New ondansetron (ondansetron 4 mg oral tablet, disintegrating) 1 tab(s) by mouth Every 6 hours Duration: 4 Days Printed Prescription Unchanged cephalexin (Keflex) 500 Milligram by mouth Two (2) times a day Unchanged phenazopyridine 200 Milligram by mouth Three (3) times a day after meals Please take this list to your next doctor s visit. Bring all medications you take, including over the counter medications, herbals and other supplements with you to your doctor s visit. Patients and families are reminded to discard old lists and to update any records with all medication providers or retail pharmacies. Medication Leaflets acetaminophen and hydrocodone (a SEET a MIN judith fen and enrique MON done) Verdrocet What is the most important information I should know about acetaminophen and hydrocodone? MISUSE OF OPIOID MEDICINE CAN CAUSE ADDICTION, OVERDOSE, OR . Keep the medication in a place where others cannot get to it. Taking opioid medicine during may cause life-threatening withdrawal symptoms in the . Fatal side effects can occur if you use opioid medicine with alcohol, or with other drugs that cause drowsiness or slow your breathing. Stop taking this medicine and call your doctor right away if you have skin redness or a rash that spreads and causes blistering and peeling. What is acetaminophen and hydrocodone? Acetaminophen and hydrocodone is a combination medicine used to relieve moderate to severe pain. Acetaminophen and hydrocodone contains an opioid medicine, and may be habit-forming. Acetaminophen and hydrocodone may also be used for purposes not listed in this medication guide. What should I discuss with my healthcare provider before taking acetaminophen and hydrocodone? You should not use this medicine if you are allergic to acetaminophen or hydrocodone, or if you have: severe asthma or breathing problems; or a blockage in your stomach or intestines. Tell your doctor if you have ever had: breathing problems, sleep apnea (breathing stops during sleep); liver disease; a drug or alcohol addiction; kidney disease; a head injury or seizures; urination problems; or problems with your thyroid, pancreas, or gallbladder. If you use opioid medicine while you are , your baby could become dependent on the drug. This can cause life-threatening withdrawal symptoms in the baby after it is born. Babies born dependent on opioids may need medical treatment for several weeks. Ask a doctor before using opioid medicine if you are . Tell your doctor if you notice severe drowsiness or slow breathing in the nursing baby. How should I take acetaminophen and hydrocodone? Follow all directions on your prescription label. Never take this medicine in larger amounts, or for longer than prescribed. An overdose can damage your liver or cause . Tell your doctor if you feel an increased urge to use more of this medicine. Never share this medicine with another person, especially someone with a history of drug abuse or addiction. MISUSE CAN CAUSE ADDICTION, OVERDOSE, OR . Keep the medicine in a place where others cannot get to it. Selling or giving away this medicine is against the law. Measure liquid medicine carefully. Use the dosing syringe provided, or use a medicine dose-measuring device (not a kitchen spoon). If you need surgery or medical tests, tell the doctor ahead of time that you are using this medicine. You should not stop using this medicine suddenly. Follow your doctor's instructions about tapering your dose. Store at room temperature away from moisture and heat. Keep track of your medicine. You should be aware if anyone is using it improperly or without a prescription. Do not keep leftover opioid medication. Just one dose can cause in someone using this medicine accidentally or improperly. Ask your pharmacist where to locate a drug take-back disposal program.If there is no take-back program, flush the unused medicine down the toilet. What happens if I miss a dose? Since this medicine is used for pain, you are not likely to miss a dose. Skip any missed dose if itis almost time for your next dose. Do not use two doses at one time. What happens if I overdose? Seek emergency medical attention or call the Poison Help line at . An overdose of this medicine can be fatal, especially in a child or other person using the medicine without a prescription. Overdose symptoms may include nausea, vomiting, sweating, severe drowsiness, pinpoint pupils, slow breathing, or no breathing. Your doctor may recommend you get naloxone (a medicine to reverse an opioid overdose) and keep it with you at all times. A person caring for you can give the naloxone if you stop breathing or don't wake up. Your caregiver must still get emergency medical help and may need to perform CPR (cardiopulmonary resuscitation) on you while waiting for help to arrive. Anyone can buy naloxone from a pharmacy or local health department. Make sure any person caring foryou knows where you keep naloxone and how to use it. What should I avoid while taking acetaminophen and hydrocodone? Avoid driving or operating machinery until you know how this medicine will affect you. Dizziness ordrowsiness can cause falls, accidents, or severe injuries. Do not drink alcohol. Dangerous side effects or could occur. Ask a doctor or pharmacist before using any other medicine that may contain acetaminophen (sometimes abbreviated as APAP). Taking certain medications together can lead to a fatal overdose. What are the possible side effects of acetaminophen and hydrocodone? Get emergency medical help if you have signs of an allergic reaction: hives; difficulty breathing; swelling of your face, lips, tongue, or throat. Opioid medicine can slow or stop your breathing, and may occur. A person caring for you should give naloxone and/or seek emergency medical attention if you have slow breathing with long pauses,blue colored lips, or if you are hard to wake up. In rare cases, acetaminophen may cause a severe skin reaction that can be fatal. This could occur even if you have taken acetaminophen in the past and had no reaction. Stop taking this medicine and call your doctor right away if you have skin redness or a rash that spreads and causes blistering andpeeling. Call your doctor at once if you have: noisy breathing, sighing, shallow breathing, breathing that stops; a light-headed feeling, like you might pass out; liver problems--nausea, upper stomach pain, tiredness, loss of appetite, dark urine, leeann-colored stools, jaundice (yellowing of the skin or eyes); low cortisol levels-- nausea, vomiting, loss of appetite, dizziness, worsening tiredness or weakness; o high levels of serotonin in the body--agitation, hallucinations, fever, sweating, shivering, fast heart rate, muscle stiffness, twitching, loss of coordination, nausea, vomiting, diarrhea. Serious breathing problems may be more likely in older adults and in those who are debilitated or have wasting syndrome or chronic breathing disorders. Common side effects include: dizziness, drowsiness, feeling tired; nausea, vomiting, stomach pain; constipation; or headache. This is not a complete list of side effects and others may occur. Call your doctor for medical advice about side effects. You may report side effects to FDA at 7-444-PXZ-1314. What other drugs will affect acetaminophen and hydrocodone? You may have breathing problems or withdrawal symptoms if you start or stop taking certain other medicines. Tell your doctor if you also use an antibiotic, antifungal medication, heart or blood pressure medication, seizure medication, or medicine to treat HIV or hepatitis C. Opioid medication can interact with many other drugs and cause dangerous side effects or . Be sure your doctor knows if you also use: cold or allergy medicines, bronchodilator asthma/COPD medication, or a diuretic ('water pill'); medicines for motion sickness, irritable bowel syndrome, or overactive bladder; other opioids--opioid pain medicine or prescription cough medicine; a sedative like Valium--diazepam, alprazolam, lorazepam, Xanax, Klonopin, Versed, and others; drugs that make you sleepy or slow your breathing--a sleeping pill, muscle relaxer, medicine to treat mood disorders or mental illness; drugs that affect serotonin levels in your body--a stimulant, or medicine for depression, Parkinson's disease, migraine headaches, serious infections, or nausea and vomiting. This list is not complete. Other drugs may affect acetaminophen and hydrocodone, including prescription and omsd-brw-tngofod medicines, vitamins, and herbal products. Not all possible interactions are listed here. Where can I get more information? Your doctor or pharmacist can provide more information about acetaminophen and hydrocodone. Remember, keep this and all other medicines out of the reach of children, never share your medicines with others, and use this medication only for the indication prescribed. Every effort has been made to ensure that the information provided by [employer]. ('[employer]') is accurate, up-to-date, and complete, but no guarantee is made to that effect. Drug information contained herein may be time sensitive. [employer] information has been compiled for use by healthcare practitioners and consumers in the [place] and therefore [employer] does not warrant that uses outside of the [place] are appropriate, unless specifically indicated otherwise. [employer] drug information does not endorse drugs, diagnose patients or recommend therapy. [employer] drug information isan informational resource designed to assist licensed healthcare practitioners in caring for their p atients and/or to serve consumers viewing this service as a supplement to, and not a substitute for, the expertise, skill, knowledge and judgment of healthcare practitioners. The absence of a warningfor a given drug or drug combination in no way should be construed to indicate that the drug or drug combination is safe, effective or appropriate for any given patient. [employer] does not assume any responsibility for any aspect of healthcare administered with the aid of information [facility] provides. The information contained herein is not intended to cover all possible uses, directions, precautions, warnings, drug interactions, allergic reactions, or adverse effects. If you have questions about the drugs you are taking, check with your doctor, nurse or pharmacist. Copyright 6056-4161 [employer]. Version: 19.02. Revision Date: 03/08/2024. ibuprofen (EYE bue PROE fen) Advil, Advil Migraine, Children's Advil, Children's Ibuprofen Cox, Children's Motrin, Genpril, IBU, Ibuprohm, Motrin Childrens, Motrin IB, Motrin IB Migraine, Motrin Infant Drops, Motrin Migraine Pain, Proprinal, Wal-Profen What is the most important information I should know about ibuprofen? Ibuprofen can increase your risk of fatal heart attack or stroke. Do not use this medicine just before or after heart bypass surgery (coronary artery bypass graft, or CABG). Ibuprofen may also cause stomach or intestinal bleeding, which can be fatal. What is ibuprofen? Ibuprofen is a nonsteroidal anti-inflammatory drug (NSAID). Ibuprofen is used to reduce fever and treat pain or inflammation caused by many conditions such as headache, toothache, back pain, arthritis, menstrual cramps, or minor injury. This medicine is used in adults and children who are at least 6 months old. Ibuprofen may also be used for purposes not listed in this medication guide. What should I discuss with my healthcare provider before taking ibuprofen? Ibuprofen can increase your risk of fatal heart attack or stroke, even if you don't have any risk factors. Do not use this medicine just before or after heart bypass surgery (coronary artery bypass graft, or CABG). Ibuprofen may also cause stomach or intestinal bleeding, which can be fatal. These conditions can occur without warning while you are using ibuprofen, especially in older adults. You should not use ibuprofen if you are allergic to it, or if you have ever had an asthma attack orsevere allergic reaction after taking aspirin or an NSAID. Ask a doctor or pharmacist if this medicine is safe to use if you have ever had: heart disease, high blood pressure, high cholesterol, diabetes, or if you smoke; a heart attack, stroke, or blood clot; stomach ulcers or bleeding; liver or kidney disease; asthma; or if you take aspirin to prevent heart attack or stroke. Ask a doctor before using this medicine if you are or . If you are , you should not take ibuprofen unless your doctor tells you to. Taking an NSAIDduring the last 20 weeks of can cause serious heart or kidney problems in the unborn babyand possible complications with your . Do not give ibuprofen to a child younger than 6 months old without the advice of a doctor. How should I take ibuprofen? Use exactly as directed on the label, or as prescribed by your doctor. Use the lowest dose that is effective in treating your condition. An ibuprofen overdose can damage your stomach or intestines. The maximum amount of ibuprofen for adults is 800 milligrams per dose or 3200 mg per day (4 maximum doses). A child's dose of ibuprofen is based on the age and weight of the child. Carefully follow the dosing instructions provided with children's ibuprofen for the age and weight of your child. Ask a doctoror pharmacist if you have questions. Take ibuprofen with food or milk to lessen stomach upset. Shake the oral suspension (liquid) before you measure a dose. Use the dosing syringe provided, or use a medicine dose-measuring device (not a kitchen spoon). You must chew the chewable tablet before you swallow it. Store at room temperature away from moisture and heat. Do not allow the liquid medicine to freeze. What happens if I miss a dose? Since ibuprofen is used when needed, you may not be on a dosing schedule. Skip any missed dose if it's almost time for your next dose. Do not use two doses at one time. What happens if I overdose? Seek emergency medical attention or call the Poison Help line at . Overdose symptoms may include nausea, vomiting, stomach pain, drowsiness, black or bloody stools, coughing up blood, shallow breathing, fainting, or coma. What should I avoid while taking ibuprofen? Ask a doctor or pharmacist before using other medicines for pain, fever, swelling, or cold/flu symptoms. They may contain ingredients similar to ibuprofen (such as aspirin, ibuprofen, ketoprofen, or naproxen). Avoid taking aspirin unless your doctor tells you to. If you also take aspirin to prevent stroke or heart attack, taking ibuprofen can make aspirin less effective in protecting your heart and blood vessels. If you take both medicines, take ibuprofen at least 8 hours before or 30 minutes after you take aspirin (non-enteric coated form). Avoid drinking alcohol. It may increase your risk of stomach bleeding. What are the possible side effects of ibuprofen? Get emergency medical help if you have signs of an allergic reaction (hives, difficult breathing, swelling in your face or throat) or a severe skin reaction (fever, sore throat, burning eyes, skin pain, red or purple skin rash with blistering and peeling). Get emergency medical help if you have signs of a heart attack or stroke: chest pain spreading to your jaw or shoulder, sudden numbness or weakness on one side of the body, slurred speech, leg swelling, feeling short of breath. Stop using ibuprofen and call your doctor at once if you have: changes in your vision; shortness of breath (even with mild exertion); swelling or rapid weight gain; a skin rash, no matter how mild; signs of stomach bleeding--bloody or tarry stools, coughing up blood or vomit that looks like coffee grounds; liver problems--nausea, upper stomach pain, itching, tired feeling, flu-like symptoms, loss of appetite, dark urine, leeann-colored stools, jaundice (yellowing of the skin or eyes); low red blood cells (anemia)--pale skin, feeling light-headed or short of breath, rapid heart rate,trouble concentrating; or kidney problems--little or no urinating, painful or difficult urination, swelling in your feet or ankles, feeling tired or short of breath. Common side effects may include: nausea, vomiting, gas; bleeding; or dizziness, headache. This is not a complete list of side effects and others may occur. Call your doctor for medical advice about side effects. You may report side effects to FDA at 3-991-EDK-7595. What other drugs will affect ibuprofen? Ask your doctor before using ibuprofen if you take an antidepressant. Taking certain antidepressants with an NSAID may cause you to bruise or bleed easily. Ask a doctor or pharmacist before using ibuprofen with any other medications, especially: cyclosporine; lithium; methotrexate; a blood thinner (warfarin, Coumadin, Jantoven); heart or blood pressure medication, including a diuretic or 'water pill'; or steroid medicine (such as prednisone). This list is not complete. Other drugs may affect ibuprofen, including prescription and iclu-wfr-gsuboqy medicines, vitamins, and herbal products. Not all possible drug interactions are listed here. Where can I get more information? Your pharmacist can provide more information about ibuprofen. Remember, keep this and all other medicines out of the reach of children, never share your medicines with others, and use this medication only for the indication prescribed. Every effort has been made to ensure that the information provided by [employer]. ('[employer]') is accurate, up-to-date, and complete, but no guarantee is made to that effect. Drug information contained herein may be time sensitive. [employer] information has been compiled for use by healthcare practitioners and consumers in the [place] and therefore [employer] does not warrant that uses outside of the [place] are appropriate, unless specifically indicated otherwise. [employer] drug information does not endorse drugs, diagnose patients or recommend therapy. [employer] drug information isan informational resource designed to assist licensed healthcare practitioners in caring for their p atients and/or to serve consumers viewing this service as a supplement to, and not a substitute for, the expertise, skill, knowledge and judgment of healthcare practitioners. The absence of a warningfor a given drug or drug combination in no way should be construed to indicate that the drug or drug combination is safe, effective or appropriate for any given patient. [employer] does not assume any responsibility for any aspect of healthcare administered with the aid of information [employer] provides. The information contained herein is not intended to cover all possible uses, directions, precautions, warnings, drug interactions, allergic reactions, or adverse effects. If you have questions about the drugs you are taking, check with your doctor, nurse or pharmacist. Copyright [id number] [employer]. Version: 24.02. Revision Date: 08/19/2023. ondansetron (oral) (on JEFERSON se moises) What is the most important information I should know about ondansetron? You should not use ondansetron if you are also using apomorphine (Apokyn). What is ondansetron? Ondansetron blocks the actions of chemicals in the body that can trigger nausea and vomiting. Ondansetron is used to prevent nausea and vomiting that may be caused by surgery, cancer chemotherapy, or radiation treatment. Ondansetron may be used for purposes not listed in this medication guide. What should I discuss with my health care provider before taking ondansetron? You should not use ondansetron if: you are also using apomorphine (Apokyn); or you are allergic to ondansetron or similar medicines (dolasetron, granisetron, palonosetron). To make sure ondansetron is safe for you, tell your doctor if you have: liver disease; an electrolyte imbalance (such as low levels of potassium or magnesium in your blood); congestive heart failure, slow heartbeats; a personal or family history of long QT syndrome; or a blockage in your digestive tract (stomach or intestines). Ondansetron is not expected to harm an unborn baby. Tell your doctor if you are . It is not known whether ondansetron passes into breast milk or if it could harm a nursing baby. Tell your doctor if you are breast-feeding a baby. Ondansetron is not approved for use by anyone younger than 4 years old. Ondansetron orally disintegrating tablets may contain phenylalanine. Tell your doctor if you have phenylketonuria (PKU). How should I take ondansetron? Follow all directions on your prescription label. Do not take this medicine in larger or smaller amounts or for longer than recommended. Ondansetron can be taken with or without food. The first dose of ondansetron is usually taken before the start of your surgery, chemotherapy, or radiation treatment. Follow your doctor's dosing instructions very carefully. Take the ondansetron regular tablet with a full glass of water. To take the orally disintegrating tablet (Zofran ODT): Keep the tablet in its blister pack until you are ready to take it. Open the package and peel back the foil. Do not push a tablet through the foil or you may damage the tablet. Use dry hands to remove the tablet and place it in your mouth. Do not swallow the tablet whole. Allow it to dissolve in your mouth without chewing. Swallow several times as the tablet dissolves. To use ondansetron oral soluble film (strip) (Jennifer): Keep the strip in the foil pouch until you are ready to use the medicine. Using dry hands, remove the strip and place it on your tongue. It will begin to dissolve right away. Do not swallow the strip whole. Allow it to dissolve in your mouth without chewing. Swallow several times after the strip dissolves. If desired, you may drink liquid to help swallow the dissolved strip. Wash your hands after using Zuplenz. Measure liquid medicine with the dosing syringe provided, or with a special dose-measuring spoon ormedicine cup. If you do not have a dose-measuring device, ask your pharmacist for one. Store at room temperature away from moisture, heat, and light. Store liquid medicine in an upright position. What happens if I miss a dose? Take the missed dose as soon as you remember. Skip the missed dose if it is almost time for your next scheduled dose. Do not take extra medicine to make up the missed dose. What happens if I overdose? Seek emergency medical attention or call the Poison Help line at . Overdose symptoms may include sudden loss of vision, severe constipation, feeling light-headed, or fainting. What should I avoid while taking ondansetron? Ondansetron may impair your thinking or reactions. Be careful if you drive or do anything that requires you to be alert. What are the possible side effects of ondansetron? Get emergency medical help if you have signs of an allergic reaction: rash, hives; fever, chills, difficult breathing; swelling of your face, lips, tongue, or throat. Call your doctor at once if you have: severe constipation, stomach pain, or bloating; headache with chest pain and severe dizziness, fainting, fast or pounding heartbeats; fast or pounding heartbeats; jaundice (yellowing of the skin or eyes); blurred vision or temporary vision loss (lasting from only a few minutes to several hours); high levels of serotonin in the body--agitation, hallucinations, fever, fast heart rate, overactivereflexes, nausea, vomiting, diarrhea, loss of coordination, fainting. Common side effects may include: diarrhea or constipation; headache; drowsiness; or tired feeling. This is not a complete list of side effects and others may occur. Call your doctor for medical advice about side effects. You may report side effects to FDA at 2-359-ERP-8691. What other drugs will affect ondansetron? Ondansetron can cause a serious heart problem, especially if you use certain medicines at the same time, including antibiotics, antidepressants, heart rhythm medicine, antipsychotic medicines, and medicines to treat cancer, malaria, HIV or AIDS. Tell your doctor about all medicines you use, and those you start or stop using during your treatment with ondansetron. Taking ondansetron while you are using certain other medicines can cause high levels of serotonin to build up in your body, a condition called 'serotonin syndrome,' which can be fatal. Tell your doctor if you also use: medicine to treat depression; medicine to treat a psychiatric disorder; a narcotic (opioid) medication; or medicine to prevent nausea and vomiting. This list is not complete and many other drugs can interact with ondansetron. This includes prescription and rfww-yjz-gruzbzg medicines, vitamins, and herbal products. Give a list of all your medicines to any healthcare provider who treats you. Where can I get more information? Your pharmacist can provide more information about ondansetron. Remember, keep this and all other medicines out of the reach of children, never share your medicines with others, and use this medication only for the indication prescribed. Every effort has been made to ensure that the information provided by [employer]. ('[employer]') is accurate, up-to-date, and complete, but no guarantee is made to that effect. Drug information contained herein may be time sensitive. [employer] information has been compiled for use by healthcare practitioners and consumers in the [place] and therefore [employer] does not warrant that uses outside of the [place] are appropriate, unless specifically indicated otherwise. [employer]'s drug information does not endorse drugs, diagnose patients or recommend therapy. [employer] drug information isan informational resource designed to assist licensed healthcare practitioners in caring for their p atients and/or to serve consumers viewing this service as a supplement to, and not a substitute for, the expertise, skill, knowledge and judgment of healthcare practitioners. The absence of a warningfor a given drug or drug combination in no way should be construed to indicate that the drug or drug combination is safe, effective or appropriate for any given patient. [employer] does not assume any responsibility for any aspect of healthcare administered with the aid of information [employer] provides. The information contained herein is not intended to cover all possible uses, directions, precautions, warnings, drug interactions, allergic reactions, or adverse effects. If you have questions about the drugs you are taking, check with your doctor, nurse or pharmacist. Copyright [employer]. Version: 16.01. Revision Date: 07/02/2023. Education Materials Infecciones de las v as urinarias en las mujeres Las infecciones de las v as urinarias suelen ocurrir a causa de bacterias que invaden las v as urinarias, sree sea desde fuera del cuerpo o desplaz ndose desde el recto o la vagina hasta el interior de la uretra. La anatom a de la samara hace m s f cil la entrada de bacterias en las v as urinarias, por lo que estas infecciones son m s frecuentes en las mujeres que en los hombres. El s ntoma m s com n de la mayor a de estas infecciones es el dolor en las v as urinarias, jarrett la jessica manera de saber con certeza si hay nicole infecci n es hacer un cultivo de orina (urocultivo). Sujit tipos de infecciones de las v as urinarias Cistitis: La infecci n de la vejiga (cistitis) es la forma de infecci n urinaria m s com n en las mujeres. Puede provocar un deseo urgente o frecuente de orinar, as cyndy fiebre, dolor, escozor al orinar y jose en la orina. Uretritis: La uretritis consiste en la inflamaci n de la uretra. Puede causar dolor en la parte inferior del vientre o de la espalda, as cyndy un deseo urgente o frecuente de orinar. Pielonefritis: La pielonefritis es nicole infecci n de los ri ones que puede causar da os graves a losmismos si se marcial sin tratar. En los casos m s graves puede requerir hospitalizaci n. Los s ntomas pueden consistir en fiebre y dolor en la parte inferior de la espalda. Medicamentos para tratar nicole infecci n de las v as urinarias La mayor a de las infecciones de las v as urinarias se tratan con antibi ticos para eliminar las bacterias. La duraci n del tratamiento con antibi ticos depender del tipo de infecci n que tenga, y puede ser de solo 3 d as. Si tiene infecciones urinarias frecuentes, podr a ser necesario un tratamiento antibi anne con dosis reducida leighann varios meses. [place] los antibi ticos hasta terminarlos y siga exactamente las indicaciones que le hayan dado. De lo contrario la infecci n puede persistir y hacerse m s dif cil de tratar. Cambios del estilo de ramana para tratar y prevenir las infecciones urinarias Los cambios de estilo de ramana descritos a continuaci n pueden ayudarle a combatir cordon infecci n actual de las v as urinarias y a prevenir nuevas infecciones en el futuro: Romina abundante l quido, cyndy agua, jugo de fruta u otras bebidas sin cafe na. [employer] ayuda a eliminarlas bacterias. Vac e cordon vejiga. Siempre vac e la vejiga cuando sienta deseo de hacerlo y antes de acostarse. La orina que permanece en la vejiga promueve la infecci n. Trate de orinar antes y despu s de tener relaciones sexuales. Practique nicole buena higiene personal. L mpiese sree con un movimiento desde adelante hacia atr s despu s de usar el inodoro. [employer] ayuda aevitar que las bacterias entren a la uretra. Utilice condones leighann el sexo. [employer] ayuda a prevenir las infecciones en las v as urinarias provocadas por bacterias transmitidas sexualmente. Adem s, evite el uso de espermicidas en las relacionessexuales, ya que pueden aumentar el riesgo de infecciones. Elija otra forma de control de la natalidad. Las mujeres que tienden a desarrollar infecciones en las v as urinarias despu s del sexo podr an utilizar un antibi anne preventivo de dosis baja. Aseg rese de hablar sobre estas opciones con cordon proveedor de atenci n m dica. Vaya a todas las visitas de control que le recomienden con cordon proveedor de atenci n m dica para querevise si las bacterias que causan la infecci n felipe sido eliminadas, y para que le d tratamiento duane problemas reaparecen. [id number] [employer]. [address] [place] [address]. Todos los derechos reservados. Esta informaci n no pretende sustituir la atenci n m dica profesional. S lo cordon m dico puede diagnosticar y tratar un problema de sea. Additional Information VACCINATE! IT SAVES LIVES! Members of the community who have not yet received the COVID-19 vaccine and would like to receive it can visit one [facility] vaccine clinics. There are many vaccine clinic locations within the [facility]. For locations and available times, please visit [email or web address] It is important to note that some COVID mobile vaccine clinics are held outdoors and may be canceled in rainy or stormy conditions. To learn more about pediatric vaccinations (ages 5-11), we invite you to visit the [facility] webpage. https://[email or web address]/pages/[email or web address] [email or web address].htmlTo learn more about the COVID-19 vaccine, we invite you to visit the CDC website for a list of frequently asked questions. https://www.cdc.gov/coronavirus/2019-ncov/vaccines/faq.html [place] [facility] OneChart Patient Portal Access Instructions: Stay connected with your healthcare team and access your personal medical information anytime with the [place] Patient Portal. If you would like a full copy of your medical records please contact the [facility] Medical Records Department Thursday through Thursday between 8a.m. and 4:30p.m. Please follow the directions below to access the portal: 1.Access the email account you provided upon registration to the [facility].2.Look for an invitation email from [facility].3.Open the email and access the invitation link: Accept Invitation to [facility]4.Fill in the required jsohi to create your account. Sign into [email or web address] [employer]onics with your username and password that you created in the above steps to stay up to date. You can then view a summary of results, a summary of your visits, and the ability to download your summaries to your computer or send the information securely to a physician. Remember that your healthcare information is confidential, so carefully consider who you will allow to register on the [place] Patient Portal for access to your information. You can also access the [place] Patient Portal on the [employer]. Simply click on "Health Records" under "[employer]" and then click on the Prem logo. HOW TO SAFELY DISPOSE OF PRESCRIPTION MEDICATIONS Please use one of the following methods to safely dispose of your unused medications. 1.Use a drug disposal kit: the drug disposal pouch allows you to safely discard your old and unuseddrugs. Ask your nurse to give you one when you are discharged.2.Visit a local take-back location: Many local pharmacies and police departments have programs that collect old and unwanted prescriptiondrugs. Call your local pharmacy or go to http://bit.Floxx/8R7Vl5y to find one close to you.3.Make use of household items: Use cat litter or old coffee grounds to dispose medications if other options arenot available. Mix your drugs with these household products, seal them in an airtight container andthrow it into the garbage. Call [facility]: [phone] to be sure your drugs can be disposed of in this way. Some medicines may require a different approach.4.Never flush your medications down the toilet. IF YOU HAVE BEEN PRESCRIBED AN OPIOIDS FOR PAIN If you have been prescribed an opioid (such as hydrocodone, oxycodone or morphine), it is critical to understand the possible side effects and risks of opioid pain medications. Even when taken as directed, opioids can have several side effects including: Tolerance, meaning you might need to take more of a medication for the same pain relief. Nausea, vomiting and/or constipation. Sleepiness, dizziness, dry mouth, confusion, depression or itching. Physical dependence, meaning you have withdrawal symptoms when a medication is stopped ? this can develop within a few days. KNOW YOUR RESPONSIBILITIES It is important to know exactly how much and how often to take the opioid pain medications you are prescribed. Never take opioids in higher amounts or more often than prescribed. Do not combine opioids with alcohol or other drugs that cause drowsiness, such as benzodiazepines, also known as benzos,including diazepam and alprazolam, muscle relaxants or sleep aids. Never sell or share prescriptionopioids. This is illegal. Store opioids in a secure place and out of reach of others (including children, family, friends and visitors). The last page(s) of this document has been signed and retained as a CHART COPY Signatures Patient Education Materials Urinary Tract Infections in Women(Czech) Medication Leaflets acetaminophen and hydrocodone, ibuprofen, ondansetron (oral) My discharge plan and instructions have been reviewed and explained to me and I,CHULA MEZAd my current condition and have read and understand these discharge instructions. I have received a written copy of the plan/instructions. If I have questions, I am aware that I should contact my doctor. Patient/Lamp Inspector Signature: Date/Time: Relationship to Patient: Witness Name/Signature: Date/Time: [facility]04-21-2024 Note ORIGINAL EXAMINATION: CT OF THE ABDOMEN AND PELVIS WITH CONTRAST4/ 9:02 am TECHNIQUE: CT of the abdomen and pelvis was performed with the administration of intravenous contrast. Multiplanar reformatted images are provided for review. Automated exposure control, iterative reconstruction, and/or weight based adjustment of the mA/kV was utilized to reduce the radiation dose to as low as reasonably achievable. COMPARISON: None HISTORY: ORDERING SYSTEM PROVIDED HISTORY: Reason for Exam: abdominal pain Right flank pain FINDINGS: The included lung bases are clear. There is no visible pleural or pericardial effusion. The heart is normal in size. The liver, spleen, adrenal glands, kidneys, gallbladder and pancreas are within normal limits. The large and small bowel are normal in course and caliber. The appendix is surgically absent. No free intraperitoneal fluid or air is identified. The aorta is normal in caliber. There is no lymphadenopathy. The uterus and adnexa are normal. There is no visible fracture or aggressive osseous lesion. IMPRESSION: No acute intra-abdominal or pelvic process. Interpreted by: Julián Mcbride DO Preliminary Report By: Julián Mcbride DO Electronically signed By Julián Mcbride DO Dictated Date: 03/20/2024 9:06:39 AM Prelim Date: 03/20/2024 9:09:39 AM Sign Date: 03/20/2024 9:09:39 AM Ordering Provider: [facility]11-21-2023 Miscellaneous Notes* Telephone Encounter - Cate Beauchamp RN - 10/20/2023 12:35 PM EST Requesting OCP to [facility] pharmacy now d/t barton. Please file. No need to call back. Requested Prescriptions Pending Prescriptions Disp Refills norgestimate 0.25 mg-ethinyl estradiol 35 mcg (SPRINTEC) 0.25-35 mg-mcg per tablet 84 tablet 4 Sig: Take 1 tablet by mouth once daily. Cate Beauchamp RN [facility] History of Present illness Narrative* Mge Kramer APRN.ALICE - 10/17/2023 9:35 AM EST Chula is a 38 year old who presents for an annual gynecologic exam with complaints: Gets a pain in her belly when sleeping on abdomen since having baby 15 months ago. No pain as soon as she repositions to side or back. Is . 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 Menses: cycles every 28 days and 4-5 days of flow. Contraception: combined hormonal contraceptives HPV vaccine: No Last Pap: 09/15/2022 normal HPV: 08/29/2022 negative History of abnormal pap: Yes 2015 ASCUS HPV unknown Last mammogram: never Sexually active: Yes OB History T3 L2 SAB2 IAB0 Ectopic0 Multiple0 Live Births1 Comment: No surgeries for missed abs and 3 vaginal deliveries Transformer Molder History LMP: 09/26/2023, Having periods Age at Menarche: Age at First : Age at Menopause: Transformer Molder History Comments: Sexual Activity: Yes; Male Contraception: Pill PAST MEDICAL HISTORY Diagnosis Date Gestational diabetes Trichinosis PAST SURGICAL HISTORY Procedure Laterality Date APPENDECTOMY CHOLECYSTECTOMY FAMILY HISTORY Problem Relation Age of Onset No Known Problems Mother No Known Problems Father SOCIAL HISTORY Social History Tobacco Use Smoking status: Never Passive exposure: Never Smokeless tobacco: Never Vaping Use Vaping Use: Never used Substance Use Topics Alcohol use: No Drug use: No REVIEW OF SYSTEMS Abdomen: see HPI. No nausea, vomiting, diarrhea, or constipation. No bloating, early satiety, indigestion, or increased flatulence. Bladder: No dysuria, gross hematuria, urinary frequency, urinary urgency, or incontinence. Breast: No breast lumps, nipple d/c, overlying skin changes, redness or skin retraction. Allergies and current medication updated:Yes EXAM: BP 124/78 Ht 5' 3" (1.60m) Wt 203 lb 3.2 oz (92.2kg) LMP 09/26/2023 BMI 36.00 kg/(m^2). GENERAL: pleasant, female in no apparent distress HEENT: Normocephalic, atraumatic, mucus membranes moist, and no lesions NECK: Supple, full range of motion, no adenopathy, and thyroid normal DERMATOLOGY: Normal, without lesions, non-icteric, and non-hirsute BREAST: soft, non-tender, symmetric, no dominant mass, normal nipple-areolar complex, no lymphadenopathy, and no nipple discharge CHEST: Normal inspiratory effort ABDOMEN: soft,no masses, mild generalized tenderness to entire abdomen PELVIC: external genitalia normal, normal Bartholin's glands, urethra, [place]'s glands, no vulvar lesions, no cervical lesions, physiologic discharge present, normal appearing perineal body and perianal region BIMANUAL: uterus normal size, shape and consistency, no adnexal masses, and mild generalized tenderness RECTOVAGINAL: deferred. NEURO: alert and oriented x3,exam grossly non-focal EXTREMITIES: normal ASSESSMENT/PLAN: 1) Health maintenance: Pap/HPV up to date. Nutrition, exercise and routine health maintenance exams reviewed. 2. Generalized abdominal pain - ICD9: 789.07, ICD10: R10.84 - Only when prone. ? Diastasis recti pain - no acute abdomen 3) Contraception: combined hormonal contraceptives. Contraceptive options reviewed and information provided. 4) STD screening: Accepted STD check for Gonorrhea and Chlamydia. 5) Follow up one year or sooner as needed Meg Kramer APRN.EXTRACTION OPERATOR [facility] Discharge instructions Patient Education 08/09/2023 13:59:04 Swallowed Foreign Body (Adult) Swallowed Foreign Body (Adult) Indigestible objects (foreign bodies) are sometimes swallowed by adults. Whether or not the object moves all the way through the digestive tract depends on many factors. This includes the size and shape of the object, whether the object is sharp and pointy, and what the object is made of. Based on your evaluation, no treatment is needed at this time. The swallowed object is expected to move through your digestive tract and pass out of the body in the stool with no problems. This may take about 24 to 48 hours, but could take longer depending on your bowel habits. If imaging tests were done, you will be told when the results are ready and if they affect your treatment. Home care Follow any instructions from your provider about eating and drinking. In certain cases, you may be told to only eat soft foods and drink liquids for the first 24 to 48 hours. You will need to check your stool each time you have a bowel movement. This is so you can confirm that the object has passed, and look for signs of bleeding. If the object does not pass, it may mean that the object is stuck somewhere along the digestive tract. In such cases, the object may need to be removed with a procedure. Follow-up care Follow up with your healthcare provider as advised. You will be told if further treatment is needed. In certain cases, you may need to return to have imaging tests done. Call your healthcare providerif you have any questions or concerns. When to seek medical advice Call your healthcare provider right away if any of these occur: Belly pain, cramps, or swelling Shortness of breath or coughing that won t stop Trouble swallowing or pain with swallowing Vomiting that won t stop Blood in the stool (dark red or black color) Fever of 100.4 F (38 C) or higher, or as directed by your provider Call 911 Call 911 if any of these occur: Trouble breathing, wheezing Trouble speaking Unusually fast heart rate New or worsening chest pain Vomiting blood (red or black) Swelling of the neck Inability to pass stool [id number] [employer]. [address] [place] [address]. All rights reserved. This information is not intended as a substitute for professional medical care. Always follow yourhealthcare professional's instructions. Follow Up Care 08/09/2023 12:33:56 With:Follow up with primary care provider Address:Unknown When:2-4 days [facility] 09-10-2023 Emergency department Discharge summary Discharge Instructions Thank you for allowing [facility] to assist you with your healthcare needs. The following is importantdischarge information regarding your hospital visit. Diagnosis from Today's Visit Foreign body in throat Swallowed foreign body What to Do Next Instructions from Your Care Team You had an x-ray today that showed 2 foreign bodies in the area of your neck. It is unclear if theyare in your esophagus or near your airway. You opted to leave the hospital to seek care elsewhere. You will likely need a CT scan to identify the exact location and see a specialist if these foreign bodies need to be removed. If you have any concerns you can call 911 or return to the nearest emergency department. No qualifying data available. Post Acute Orders No qualifying data available. You Need to Schedule the Following Appointments Follow Up with Follow up with primary care provider When Within 2-4 days Allergies NKA Medications Please ask your primary doctor or pharmacist before taking any other medication not listed, including over the counter drugs, herbal medications, vitamins and or supplements as they may interact withyour home medications. What How Much When Instructions Last Dose Unchanged ondansetron (Zofran 4 mg oral tablet) See instructions 1 tab(s) PO q4-6h prn Please take this list to your next doctor s visit. Bring all medications you take, including over the counter medications, herbals and other supplements with you to your doctor s visit. Patients and families are reminded to discard old lists and to update any records with all medication providers or retail pharmacies. Education Materials Swallowed Foreign Body (Adult) Indigestible objects (foreign bodies) are sometimes swallowed by adults. Whether or not the object moves all the way through the digestive tract depends on many factors. This includes the size and shape of the object, whether the object is sharp and pointy, and what the object is made of. Based on your evaluation, no treatment is needed at this time. The swallowed object is expected to move through your digestive tract and pass out of the body in the stool with no problems. This may take about 24 to 48 hours, but could take longer depending on your bowel habits. If imaging tests were done, you will be told when the results are ready and if they affect your treatment. Home care Follow any instructions from your provider about eating and drinking. In certain cases, you may be told to only eat soft foods and drink liquids for the first 24 to 48 hours. You will need to check your stool each time you have a bowel movement. This is so you can confirm that the object has passed, and look for signs of bleeding. If the object does not pass, it may mean that the object is stuck somewhere along the digestive tract. In such cases, the object may need to be removed with a procedure. Follow-up care Follow up with your healthcare provider as advised. You will be told if further treatment is needed. In certain cases, you may need to return to have imaging tests done. Call your healthcare providerif you have any questions or concerns. When to seek medical advice Call your healthcare provider right away if any of these occur: Belly pain, cramps, or swelling Shortness of breath or coughing that won t stop Trouble swallowing or pain with swallowing Vomiting that won t stop Blood in the stool (dark red or black color) Fever of 100.4 F (38 C) or higher, or as directed by your provider Call 911 Call 911 if any of these occur: Trouble breathing, wheezing Trouble speaking Unusually fast heart rate New or worsening chest pain Vomiting blood (red or black) Swelling of the neck Inability to pass stool [phone] [employer]. [address] [place] [address]. All rights reserved. This information is not intended as a substitute for professional medical care. Always follow yourhealthcare professional's instructions. Additional Information VACCINATE! IT SAVES LIVES! Members of the community who have not yet received the COVID-19 vaccine and would like to receive it can visit one of [facility] vaccine clinics. There are many vaccine clinic locations within the [facility]. For locations and available times, please visit [email or web address] It is important to note that some COVID mobile vaccine clinics are held outdoors and may be canceled in rainy or stormy conditions. To learn more about pediatric vaccinations (ages 5-11), we invite you to visit the [facility] webpage. https://[email or web address]/pages/[email or web address] [email or web address].htmlTo learn more about the COVID-19 vaccine, we invite you to visit the CDC website for a list of frequently asked questions. https://www.cdc.gov/coronavirus/2019-ncov/vaccines/faq.html [place] [facility] Patient Portal Access Instructions: Stay connected with your healthcare team and access your personal medical information anytime with the [facility] Patient Portal. If you would like a full copy of your medical records please contact the [facility] Medical Records Department Thursday through Thursday between 8a.m. and 4:30p.m. Please follow the directions below to access the portal: 1.Access the email account you provided upon registration to the [facility].2.Look for an invitation email from [facility].3.Open the email and access the invitation link: Accept Invitation to [facility]4.Fill in the required joshi to create your account. Sign into [email or web address] with your username and password that you created in the above steps to stay up to date. You can then view a summary of results, a summary of your visits, and the ability to download your summaries to your computer or send the information securely to a physician. Remember that your healthcare information is confidential, so carefully consider who you will allow to register on the [facility] Patient Portal for access to your information. You can also access the [employer] Patient Portal on the [employer] rose marie. Simply click on "Health Records" under "[employer]" and then click on the [employer] logo. HOW TO SAFELY DISPOSE OF PRESCRIPTION MEDICATIONS Please use one of the following methods to safely dispose of your unused medications. 1.Use a drug disposal kit: the drug disposal pouch allows you to safely discard your old and unuseddrugs. Ask your nurse to give you one when you are discharged.2.Visit a local take-back location: Many local pharmacies and police departments have programs that collect old and unwanted prescriptiondrugs. Call your local pharmacy or go to http://[employer].Floxx/6W5Jp4w to find one close to you.3.Make use of household items: Use cat litter or old coffee grounds to dispose medications if other options arenot available. Mix your drugs with these household products, seal them in an airtight container andthrow it into the garbage. Call [facility]: [phone] to be sure your drugs can be disposed of in this way. Some medicines may require a different approach.4.Never flush your medications down the toilet. IF YOU HAVE BEEN PRESCRIBED AN OPIOIDS FOR PAIN If you have been prescribed an opioid (such as hydrocodone, oxycodone or morphine), it is critical to understand the possible side effects and risks of opioid pain medications. Even when taken as directed, opioids can have several side effects including: Tolerance, meaning you might need to take more of a medication for the same pain relief. Nausea, vomiting and/or constipation. Sleepiness, dizziness, dry mouth, confusion, depression or itching. Physical dependence, meaning you have withdrawal symptoms when a medication is stopped ? this can develop within a few days. KNOW YOUR RESPONSIBILITIES It is important to know exactly how much and how often to take the opioid pain medications you are prescribed. Never take opioids in higher amounts or more often than prescribed. Do not combine opioids with alcohol or other drugs that cause drowsiness, such as benzodiazepines, also known as benzos,including diazepam and alprazolam, muscle relaxants or sleep aids. Never sell or share prescriptionopioids. This is illegal. Store opioids in a secure place and out of reach of others (including children, family, friends and visitors). The last page(s) of this document has been signed and retained as a CHART COPY Signatures Patient Education Materials Swallowed Foreign Body (Adult) Medication Leaflets My discharge plan and instructions have been reviewed and explained to me and I,CHULA MEZA my current condition and have read and understand these discharge instructions. I have received a written copy of the plan/instructions. If I have questions, I am aware that I should contact my doctor. Patient/Lamp Inspector Signature: Date/Time: Relationship to Patient: Witness Name/Signature: Date/Time: [facility]09-10-2023 Note ORIGINAL EXAMINATION: TWO XRAY VIEWS OF THE NECK SOFT TISSUES 08/09/2023 1:00 pm COMPARISON: None. HISTORY: ORDERING SYSTEM PROVIDED HISTORY: Reason for Exam: concern for foreign body FINDINGS: There are 2 radiodense objects projecting at the level of C4 and cricoid cartilage measuring approximately 0.8 and 0.5 cm, best appreciated on the lateral image. No prevertebral soft tissue swelling. The vertebral body heights and cervical lordosis are maintained. No traumatic malalignment. The included thoracic structures are unremarkable. IMPRESSION: 2 radiodense objects projecting at the level C4/cricoid cartilage. CT neck could further evaluate. I have personally reviewed the images of this examination and agree with the resident's findings and interpretation. Interpreted by: Axel Paul MD Preliminary Report By: Rishabh Cordova Electronically signed By Axel Paul MD Dictated Date: 08/09/2023 1:10:43 PM Prelim Date: 08/09/2023 1:17:54 PM Sign Date: 08/09/2023 1:52:44 PM Ordering Provider: [facility] SOL[facility]02-16-2023 Miscellaneous Notes* Telephone Encounter - PEACE Ferrell - 01/15/2023 2:03 PM EST Patient is scheduled with Claribel Hood. PEACE Ferrell January 15, 2023 2:04 PM * Telephone Encounter - Izzy Parker RN - 01/13/2023 11:59 AM EST Please call patient using manager ct to schedule Nexplanon removal. It has been ordered. Patient needs financial clearance. Izzy Parker RN * Telephone Encounter - Claribel Hood MD - 01/13/2023 11:56 AM EST Order filed Claribel Hood MD * Telephone Encounter - Izzy Parker RN - 01/13/2023 11:51 AM EST Nexplanon removal order pending. Patient will need financial clearance. Please forward to [facility] to assist patient with scheduling. Thank you. Izzy Parker RN * Telephone Encounter - Rody Shearer [facility] - 01/13/2023 11:47 AM EST Dick (sig other) called stating patient would like to remove the control in her arm. She is not comfortable with it. Please call him and advise. documented in [place] encounterKelly [place] [id number] Instructions* Patient Instructions* Claribel Hood MD - 09/09/2022 10:35 AM EDT Minimizing irritation of the vulva (area around the vagina) Wear white cotton underwear. Avoid synthetic fabrics and tight clothing. Sleep wearing shorts or pajama bottoms without underwear. Shower as soon as possible after exercise. Avoid clothing detergents and soaps with perfumes or dyes. Use warm (not hot) water to wash the vulva and if you use soap use a product designed for sensitive skin (like bar Dove). Do not douche or use creams/powders in the vulvar area unless instructed by your physician. If you must douche, use only plain warm water. Make sure the vulva is dry before dressing by patting dry with a towel. Avoid vigorous rubbing withthe towel. You may want to use the blow dryer (on the cool setting only!) on the vulva. The most important way to let your body heal is by avoiding scratching. Many patients find it difficult to avoid scratching at night when they are most aware of the itchiness. You can try taking Benadryl just before bedtime. Some women find it helpful to wear cotton gloves to bed to avoid scratching at night. Many women experience vaginal dryness which can cause discomfort with exercise and sexual activity,especially vaginal intercourse. Common causes of vaginal dryness include menopause, , control pills, cancer treatments and other medications. There are many hdoi-tof-ovotjmx products that are available to treat this condition. Lubricants are a temporary measure to minimize friction and irritation and allow for vaginal intercourse. There are different types of lubricants. Water-based lubricants dry quickly and usually will need to be reapplied during sexual activity. Oil-based lubricants are not compatible with condoms. Silicone-based lubricants should be used with caution in the shower as they can make floors slippery.Household food oils such as olive oil, coconut oil, corn oil and Cristco may increase the risk of vaginal infections such as bacterial vaginosis and yeast. Pre-seed is designed for patients trying toconceive as it does not affect sperm motility. You may need to try several different brands of lubricant until you find the one that works best for you. When choosing a lubricant, avoid those that contain perfumes, flavors or warming ingredients.Benzyl alcohol and glycerin can cause drying and irritation and parabens may be harmful to health. Look for 510(k) Clearance which means that all ingredients are considered safe by the FDA. You can search for approved products on the FDA website at http://www.accessdata.fda.gov/scripts/cdrh/cfdocs/cfpmn/pmn.cfm. Examples of 510(k) cleared lubricants include Uberlube, Sylk, Good Clean Love and Astr oglide. Vaginal moisturizers such as Luvena and Replens are designed for regular use several times a week for long-term relief of vaginal dryness. Some formulations contain a pre-biotic to help maintain vaginal pH and protect against bacterial vaginosis and yeast. For post-menopausal women who have persistent vaginal dryness, prescription treatments are available including vaginal estrogen and vaginal laser therapy. Talk to your doctor if your symptoms are notresolved by lubricant or moisturizer use. [facility] History of Present illness Narrative* Claribel Hood MD - 09/09/2022 10:09 AM EDT Chula Aguilera is a 37 year old female who presents for problem visit. HPI: Patient presents for repeat pap. OB History T3 L2 SAB2 IAB0 Ectopic0 Multiple0 Live Births1 Comment: No surgeries for missed abs and 3 vaginal deliveries Transformer Molder History LMP: 10/17/2021, Age at Menarche: Age at First : Age at Menopause: Transformer Molder History Comments: Sexual Activity: Yes; Male; Patch Contraception: No contraception data on record PAST MEDICAL HISTORY Diagnosis Date Gestational diabetes Trichinosis PAST SURGICAL HISTORY Procedure Laterality Date CHOLECYSTECTOMY FAMILY HISTORY Problem Relation Age of Onset No Known Problems Father No Known Problems Mother Social History Tobacco Use Smoking status: Never Smokeless tobacco: Never Vaping Use Vaping Use: Never used Substance Use Topics Alcohol use: No Drug use: No Current Outpatient Medications Medication Sig ibuprofen (MOTRIN ORAL) Take by mouth. Swoqnnro-Nt-Rcs-Fe-FA tab Take 1 tablet by mouth once daily. (Patient not taking: Reportedon 07/24/2022) No current facility-administered medications for this visit. Allergies As of Date: 09/09/2022 (No Known Allergies) Fully Assessed 09/09/2022 Allergies and current medication updated:Yes EXAM: BP 112/72 Wt 208 lb (94.3kg) LMP 10/17/2021 GENERAL: pleasant, female in no apparent distress PELVIC: external genitalia normal, normal Bartholin's glands, urethra, [place]'s glands, no vulvar lesions, no cervical lesions, good vaginal support, physiologic discharge present, normal appearing perineal body and perianal region ASSESSMENT AND PLAN: Encounter Diagnosis ICD-10-CM 1. 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 To see KJ on 09/09 at 10:00 AM. Patient needs financial clearance. Message forwarded to [facility]. Izzy Parker RN * Telephone Encounter - Izzy Parker RN - 09/05/2022 3:30 PM EDT ----- Message from Claribel Hood MD sent at 09/05/2022 12:49 PM EDT ----- HPV negative Needs repeat pap Claribel Hood MD documented in this encounterK[facility]09-27-[facility] History of Present illness Narrative* Claribel Hood MD - 08/26/2022 9:26 AM EDT VISIT Obstetric History T3 L2 SAB2 IAB0 Ectopic0 Multiple0 Live Births1 Comment: No surgeries for missed abs and 3 vaginal deliveries Name of Baby 1: Not recorded Date: Not recorded GA: Not recorded Delivery: Not recorded Apgar1: Not recorded Apgar5: Not recorded Living: Not recorded Name of Baby 2: Not recorded Date: Not recorded GA: Not recorded Delivery: Not recorded Apgar1: Not recorded Apgar5: Not recorded Living: Not recorded Name of Baby 3: Not recorded Date: Not recorded GA: Not recorded Delivery: Not recorded Apgar1: Not recorded Apgar5: Not recorded Living: Not recorded Name of Baby 4: Not recorded Date: Not recorded GA: Not recorded Delivery: Not recorded Apgar1: Not recorded Apgar5: Not recorded Living: Not recorded Name of Baby 5: Not recorded Date: Not recorded GA: Not recorded Delivery: Not recorded Apgar1: Not recorded Apgar5: Not recorded Living: Not recorded Name of Baby 6: Svetlana Date: 07/15/22 GA: 38w5d Delivery: Vaginal, Spontaneous Apgar1: 9 Apgar5: 10 Living: Living Chula Aguilera is a 37 year old year old here for visit. Delivery Summary: ROS/ Recovery: Feeding: Breast and bottle feeding problems: None (supplement with Formula) Menses since delivery: none Menstrual pattern prior to : Regular periods [place] since delivery: Not resumed Depression: denies symptoms of depression. OB Depression and Anxiety Screening- This Encounter (since 08/25/2022) Over the past 2 weeks have you felt down, depressed, or hopeless? Negative Over the past two weeks, have you felt little interest or pleasure in doing things? Negative Feeling nervous, anxious or on edge 0-Not at all Not being able to stop or control worrying 0-Not al all Anxiety Pre-Screening Total (If >/= 3 additional questions will be reviewed) 0 Emotional support: Yes Bowel symptoms: Negative for abdominal discomfort, blood in stools or black stools and change in bowel habits Abdomen: N/A Bladder symptoms: No dysuria, gross hematuria, urinary frequency, urinary urgency, or incontinence Other issues: None Last Pap: 2016 ASCUS HPV: positive PAST MEDICAL HISTORY Diagnosis Date Gestational diabetes Trichinosis PAST SURGICAL HISTORY Procedure Laterality Date CHOLECYSTECTOMY FAMILY HISTORY Problem Relation Age of Onset No Known Problems Father No Known Problems Mother Social History Tobacco Use Smoking status: Never Smokeless tobacco: Never Vaping Use Vaping Use: Never used Substance Use Topics Alcohol use: No Drug use: No PHYSICAL EXAMINATION: BP 114/72 Wt 208 lb (94.3kg) LMP 10/17/2021 GENERAL: pleasant, female in no apparent distress HEENT: Normocephalic, atraumatic, mucus membranes moist, and no lesions NECK: Supple, full range of motion, no adenopathy, and thyroid normal DERMATOLOGY: Normal, without lesions, non-icteric, and non-hirsute BREAST: soft, non-tender, symmetric, no dominant mass, normal nipple-areolar complex, no lymphadenopathy, and no nipple discharge CHEST: Normal inspiratory effort ABDOMEN: soft, non-tender, and no masses. INCISION: N/A PELVIC: external genitalia normal, normal Bartholin's glands, urethra, [place]'s glands, no vulvar lesions, no cervical lesions, good vaginal support, physiologic discharge present, normal appearing perineal body and perianal region BIMANUAL: uterus normal size, shape and consistency, no adnexal masses, and non-tender NEURO: alert and oriented x3,exam grossly non-focal EXTREMITIES: normal ASSESSMENT AND PLAN: 37 year old status post with normal course. Contraception plan: Nexplanan - placed PP at [facility] Follow up: Pap with HPV today RTC for annual exams and PRN Claribel Hood MD documented in this encounterK[facility]08-25-[facility]22 History of Present illness Narrative* Claribel Hood MD - 07/24/2022 9:46 AM EDT EARLY VISIT Obstetric History T3 L2 SAB2 IAB0 Ectopic0 Multiple0 Live Births1 Comment: No surgeries for missed abs and 3 vaginal deliveries Name of Baby 1: Not recorded Date: Not recorded GA: Not recorded Delivery: Not recorded Apgar1: Not recorded Apgar5: Not recorded Living: Not recorded Name of Baby 2: Not recorded Date: Not recorded GA: Not recorded Delivery: Not recorded Apgar1: Not recorded Apgar5: Not recorded Living: Not recorded Name of Baby 3: Not recorded Date: Not recorded GA: Not recorded Delivery: Not recorded Apgar1: Not recorded Apgar5: Not recorded Living: Not recorded Name of Baby 4: Not recorded Date: Not recorded GA: Not recorded Delivery: Not recorded Apgar1: Not recorded Apgar5: Not recorded Living: Not recorded Name of Baby 5: Not recorded Date: Not recorded GA: Not recorded Delivery: Not recorded Apgar1: Not recorded Apgar5: Not recorded Living: Not recorded Name of Baby 6: Svetlana Date: 07/15/22 GA: 38w5d Delivery: Vaginal, Spontaneous Apgar1: 9 Apgar5: 10 Living: Living Chula Aguilera is a 37 year old here for 2 week visit. Delivery Summary: ROS: General: Denies any fever or chills Hypertension Screening: Headache? No. Visual Changes? No Epigastric Pain? No Increased Swelling? No Taking any BP medications at home? No If applicable, monitoring BP at home? (If Yes, include results) NA Mood: normal Depression: denies symptoms of depression. OB Depression and Anxiety Screening- This Encounter (since 07/23/2022) Over the past 2 weeks have you felt down, depressed, or hopeless? Negative Over the past two weeks, have you felt little interest or pleasure in doing things? Negative Feeling nervous, anxious or on edge 0-Not at all Not being able to stop or control worrying 0-Not al all Anxiety Pre-Screening Total (If >/= 3 additional questions will be reviewed) 0 Feeding: Breast and bottle feeding problems: None Bladder: No dysuria, gross hematuria, urinary frequency, urinary urgency, or incontinence Bowel symptoms: Negative for abdominal discomfort, blood in stools or black stools and change in bowel habits Abdomen: N/A Bleeding: light flow Bottom and Perineum: No issues Other issues: None PHYSICAL EXAMINATION: LMP 10/17/2021 General: pleasant,female in no apparent distress, A&O x 3. Skin warm and intact. Breast: Deferred Abdomen: Deferred /Incision: N/A Pelvic: Deferred Bimanual: Deferred BLE - 1+ swelling bilaterally ASSESSMENT AND PLAN: 37 year old status post with normal course. Contraception plan: Nexplanon placed at [facility] . Reinforced 6-week pelvic rest. Encouraged condom usage should patient deviate. Education: resources provided - see MA/RN note LE swelling - patient reassured it is normal & reviewed signs or DVT Follow up: Return to Clinic for 6 week visit and as needed Medical Decision Making: Medical Decision Making Level: 1 - N/A Claribel Hood MD documented in this encounterK[facility]08-16-[facility]22 History of Present illness Narrative* Cate Beauchamp RN - 07/15/2022 1:38 PM EDT Patient delivered via by Dr. Hood on 07/15/22 at [facility]. See OB history. Cate Beauchamp RN documented in this encounterKettering [facility]08-16-2022 History of Present illness Narrative* Vivian Vergara MD - 07/15/2022 11:02 AM EDT NST SUMMARY PROVIDER ASSESSMENT AND INTERPRETATION Chula Aguilera is a 37 year old female, , who is at 38w5d with an TONNY of 07/24/2022, by Last Menstrual Period dating method. Indications for NST: Obesity Baseline: 135 Variability: Moderate Accelerations: Present 15 X 15 Decelerations: None Contractions: TOCO: Irregular Interpretation: Category I and Reactive SIGNATURE: Vivian Lee MD documented in this encounterKettering [facility]08-16-2022 Miscellaneous Notes* Quick Notes - Vivian Vergara MD - 07/15/2022 10:57 AM EDT DM-Pt doing well. Denies vaginal Bleeding, Leaking fluid, but reports pain and cramping. Pt reportsgood movement Physical Exam: Gen: female in no apparent distress Abd: soft, Gravid. Non tender to palpation. See flow sheet A/P: @ 38.5 weeks 1) NST today 2) Cervical check- 7cm 3) will go to L&D for delivery- GBS negative Vivian Lee MD documented in this encounterKettering [facility]08-16-2022 Instructions* Patient Instructions* Sis Grady Ma - 07/15/2022 10:24 AM EDT SEQUENTIAL SCREENINGS The [facility] offers sequential screenings for women who are interested in screenings for chromosomal abnormalities and certain defects during a . The sequential screen combinesultrasound and blood tests to determine the risk of chromosomal abnormalities, including Down's Syndrome (Trisomy 21) and Trisomy 18, as well as open neural tube defects including spina bifida. Ultrasound examination is performed between 11 weeks and 13 weeks gestational age. Blood tests are drawn after the ultrasound and again later in the between 15 and 21 weeks gestational age. Please let your physician know if you are interested in this testing. It will require an appointment withour fire range technician. This is not an ultrasound performed by a physician in our office during a routine visit. SIGNS AND SYMPTOMS OF LABOR 1. Contractions every 10 minutes or more often 2. Clear, pink, or brownish fluid (water) leaking from vagina 3. Feeling that baby is pushing down, pressure 4. Low, dull backache 5. Cramps that feel like a period 6. Cramps with or without diarrhea If you notice any of the above symptoms, contact our office at [phone] and ask to speak with anurse. After hours, you can call doctors registry at [phone] OR call [facility] at [phone] ask to have the doctor infection control rn paged. If you consider this an emergency, dial 9-1-4 or go to your nearest emergency department. NEED HELP? Are you dealing with a violent or abusive relationship? Are you a victim of rape or sexual assult? Call [facility] ([facility] 24 hour Crisis Hotline: 885.700.2394 or 214-354-6451. MANUAL Your Guide to a Healthy manual is now on-line. Visit [email or web address] to download your free copy documented in this encounterKettering [facility]08-08-2022 History of Present illness Narrative* Vivian Vergara MD - 07/07/2022 11:52 AM EDT NST SUMMARY PROVIDER ASSESSMENT AND INTERPRETATION Chula Aguilera is a 37 year old female, , who is at 37w4d with an TONNY of 07/24/2022, by Last Menstrual Period dating method. Indications for NST: Obesity Baseline: 140 Variability: Moderate Accelerations: Present 15 X 15 Decelerations: None Contractions: TOCO: occasional irritability Interpretation: Category I and Reactive SIGNATURE: Vivian Lee MD documented in this encounterKettering Health [facility]08-08-2022 Miscellaneous Notes* Quick Notes - Vivian Vergara MD - 07/07/2022 10:56 AM EDT DM-Pt doing well. Denies vaginal Bleeding, Leaking fluid, or regular Contractions. Pt reports good movement Physical Exam: Gen: female in no apparent distress Abd: soft, Gravid. Non tender to palpation. See flow sheet A/P: @ 37.4 wks- Obesity in 1) NSTs weekly until delivery 2) kick counts and labor reviewed 3) RTO 1 weeks Vivian Lee MD documented in this encounterKettering [facility]08-08-2022 Instructions* Patient Instructions* Sis Grady Ma - 07/07/2022 10:22 AM EDT SEQUENTIAL SCREENINGS The [facility] offers sequential screenings for women who are interested in screenings for chromosomal abnormalities and certain defects during a . The sequential screen combinesultrasound and blood tests to determine the risk of chromosomal abnormalities, including Down's Syndrome (Trisomy 21) and Trisomy 18, as well as open neural tube defects including spina bifida. Ultrasound examination is performed between 11 weeks and 13 weeks gestational age. Blood tests are drawn after the ultrasound and again later in the between 15 and 21 weeks gestational age. Please let your physician know if you are interested in this testing. It will require an appointment withour fire range technician. This is not an ultrasound performed by a physician in our office during a routine visit. SIGNS AND SYMPTOMS OF LABOR 1. Contractions every 10 minutes or more often 2. Clear, pink, or brownish fluid (water) leaking from vagina 3. Feeling that baby is pushing down, pressure 4. Low, dull backache 5. Cramps that feel like a period 6. Cramps with or without diarrhea If you notice any of the above symptoms, contact our office at [phone] and ask to speak with anurse. After hours, you can call doctors registry at [phone] OR call [facility] at [phone] ask to have the doctor infection control rn paged. If you consider this an emergency, dial 9-1- or go to your nearest emergency department. NEED HELP? Are you dealing with a violent or abusive relationship? Are you a victim of rape or sexual assult? Call [facility] ([place]) 24 hour Crisis Hotline: 340.736.5662 or 518-748-4657. MANUAL Your Guide to a Healthy manual is now on-line. Visit [email or web address] to download your free copy documented in this encounterKet[facility]08-04-2022 Miscellaneous Notes* Telephone Encounter - Cate Beauchamp RN - 07/03/2022 10:18 AM EDT Spoke to and patient. All information regarding results and NST below reviewed. Cate Beauchamp RN * Telephone Encounter - Cate Beauchamp RN - 07/03/2022 10:14 AM EDT Attempted to call with nursery teacher. answered and stated patient was unavailable andto try calling back later today. Cate Beauchamp RN * Telephone Encounter - Cate Beauchamp RN - 07/01/2022 10:17 AM EDT See both vaginal culture results and NST information below. Cate Beauchamp RN * Telephone Encounter - Cate Beauchamp RN - 07/01/2022 10:17 AM EDT ----- Message from Vivian Vergara MD sent at 07/01/2022 8:16 AM EDT ----- Notify patient of + yeast on culture- recommend OTC monistat 7 day treatment. * Telephone Encounter - Colette Ram RN - 06/30/2022 1:22 PM EDT Left message to call office. NST appointments added. Colette Ram RN * Telephone Encounter - Vivian Vergara MD - 06/30/2022 10:39 AM EDT Please notify patient I forgot to tell her next week and every week until delivery will need NST. Orders placed, please add to schedule. documented in this encounterK[facility] Miscellaneous Notes* Quick Notes - Vivian Vergara MD - 06/30/2022 10:09 AM EDT DM-Pt doing well. Denies vaginal Bleeding, Leaking fluid, or regular Contractions. Pt reports good movement Has some intermittent burning on outiside of vagina- better today. Denies Vaginal odor or discharge. No pain with urination. Physical Exam: Gen: female in no apparent distress Abd: soft, Gravid. Non tender to palpation. See flow sheet A/P: @ 36.4 weeks 1) GBS today 2) BV/yeast today 3) RTO 1 week 4) Growth us pending today 5) pt reports can't leave another urine today- but if pain gets worse will come and leave urine. 6) NSTs weekly until delivery Vivian Lee MD documented in this encounterK[facility]08-01-2022 Instructions* Patient Instructions* Shannon Deleon Ma - 06/30/2022 9:55 AM EDT SEQUENTIAL SCREENINGS The [facility] offers sequential screenings for women who are interested in screenings for chromosomal abnormalities and certain defects during a . The sequential screen combinesultrasound and blood tests to determine the risk of chromosomal abnormalities, including Down's Syndrome (Trisomy 21) and Trisomy 18, as well as open neural tube defects including spina bifida. Ultrasound examination is performed between 11 weeks and 13 weeks gestational age. Blood tests are drawn after the ultrasound and again later in the between 15 and 21 weeks gestational age. Please let your physician know if you are interested in this testing. It will require an appointment withour fire range technician. This is not an ultrasound performed by a physician in our office during a routine visit. SIGNS AND SYMPTOMS OF LABOR 1. Contractions every 10 minutes or more often 2. Clear, pink, or brownish fluid (water) leaking from vagina 3. Feeling that baby is pushing down, pressure 4. Low, dull backache 5. Cramps that feel like a period 6. Cramps with or without diarrhea If you notice any of the above symptoms, contact our office at [phone] and ask to speak with anurse. After hours, you can call doctors registry at [phone] OR call [facility] at [phone] ask to have the doctor infection control rn paged. If you consider this an emergency, dial or go to your nearest emergency department. NEED HELP? Are you dealing with a violent or abusive relationship? Are you a victim of rape or sexual assult? Call [facility] ([place]) 24 hour Crisis Hotline: 209.398.2968 or 360-124-6078. MANUAL Your Guide to a Healthy manual is now on-line. Visit [email or web address] to download your free copy documented in this encounterK[facility]06-29-2022 Miscellaneous Notes* Quick Notes - Vivian Vergara MD - 05/28/2022 10:31 AM EDT DM-Pt doing well. Denies vaginal Bleeding, Leaking fluid, or regular Contractions. Pt reports good movement- has some pubic bone pain when turning over. Physical Exam: Gen: female in no apparent distress Abd: soft, Gravid. Non tender to palpation. See flow sheet A/P: @ 31.6 weeks 1) growth at 36 weeks ordered- will be ama at delivery 2) Kick counts reviewed 3) continue asa and iron supplement 4) RTO 2 wks Vivian Lee MD documented in this encounterK[facility]06-29-2022 Instructions* Patient Instructions* Sis Grady Ma - 05/28/2022 10:10 AM EDT SEQUENTIAL SCREENINGS The [facility] offers sequential screenings for women who are interested in screenings for chromosomal abnormalities and certain defects during a . The sequential screen combinesultrasound and blood tests to determine the risk of chromosomal abnormalities, including Down's Syndrome (Trisomy 21) and Trisomy 18, as well as open neural tube defects including spina bifida. Ultrasound examination is performed between 11 weeks and 13 weeks gestational age. Blood tests are drawn after the ultrasound and again later in the between 15 and 21 weeks gestational age. Please let your physician know if you are interested in this testing. It will require an appointment withour fire range technician. This is not an ultrasound performed by a physician in our office during a routine visit. SIGNS AND SYMPTOMS OF LABOR 1. Contractions every 10 minutes or more often 2. Clear, pink, or brownish fluid (water) leaking from vagina 3. Feeling that baby is pushing down, pressure 4. Low, dull backache 5. Cramps that feel like a period 6. Cramps with or without diarrhea If you notice any of the above symptoms, contact our office at [phone] and ask to speak with anurse. After hours, you can call doctors registry at [phone] OR call [facility] at [phone] ask to have the doctor infection control rn paged. If you consider this an emergency, dial or go to your nearest emergency department. NEED HELP? Are you dealing with a violent or abusive relationship? Are you a victim of rape or sexual assult? Call [facility] ([place]) 24 hour Crisis Hotline: 976.933.9271 or 736-979-0632. MANUAL Your Guide to a Healthy manual is now on-line. Visit [email or web address] to download your free copy documented in this encounterK[facility]06-15-2022 Miscellaneous Notes* Quick Notes - Vivian Vergara MD - 05/14/2022 10:05 AM EDT DM-Pt doing well. Denies vaginal Bleeding, Leaking fluid, or regular Contractions. Pt reports good movement Physical Exam: Gen: female in no apparent distress Abd: soft, Gravid. Non tender to palpation. See flow sheet A/P: @ 29.6 1) RTO 2 wks 2) cbc not drawn before- will do today 3) Passed 3hr GTT 4) kick counts reviewed Vivian Lee MD documented in this encounterK[facility]06-15-2022 Instructions* Patient Instructions* Sis Grady Ma - 05/14/2022 9:49 AM EDT SEQUENTIAL SCREENINGS The [facility] offers sequential screenings for women who are interested in screenings for chromosomal abnormalities and certain defects during a . The sequential screen combinesultrasound and blood tests to determine the risk of chromosomal abnormalities, including Down's Syndrome (Trisomy 21) and Trisomy 18, as well as open neural tube defects including spina bifida. Ultrasound examination is performed between 11 weeks and 13 weeks gestational age. Blood tests are drawn after the ultrasound and again later in the between 15 and 21 weeks gestational age. Please let your physician know if you are interested in this testing. It will require an appointment withour fire range technician. This is not an ultrasound performed by a physician in our office during a routine visit. SIGNS AND SYMPTOMS OF LABOR 1. Contractions every 10 minutes or more often 2. Clear, pink, or brownish fluid (water) leaking from vagina 3. Feeling that baby is pushing down, pressure 4. Low, dull backache 5. Cramps that feel like a period 6. Cramps with or without diarrhea If you notice any of the above symptoms, contact our office at [phone] and ask to speak with anurse. After hours, you can call doctors registry at [phone] OR call [facility] at [phone] ask to have the doctor infection control rn paged. If you consider this an emergency, dial 4-5-7 or go to your nearest emergency department. NEED HELP? Are you dealing with a violent or abusive relationship? Are you a victim of rape or sexual assult? Call [facility] ([facility] 24 hour Crisis Hotline: 973.410.4097 or 925-383-1248. MANUAL Your Guide to a Healthy manual is now on-line. Visit [email or web address] to download your free copy documented in this encounterK[facility]05-27-2022 Miscellaneous Notes* Telephone Encounter - Vivian Vergara MD - 04/25/2022 3:03 PM EDT ordered * Telephone Encounter - Colette Ram RN - 04/25/2022 2:50 PM EDT Spoke to patients and notified of results and instructions for 3 hour GTT. Lab appointment scheduled. Please file pended order and will attach to lab appointment. Colette Ram RN * Telephone Encounter - Colette Ram RN - 04/25/2022 2:43 PM EDT ----- Message from Vivian Vergara MD sent at 04/25/2022 1:35 PM EDT ----- Please notify patient of abnormal glucose screening. Will need to complete a 3- hour test. Please pend the order and I will sign it. documented in this encounterK[facility]05-27-2022 History of Past illness Narrative* Problem Noted Date Resolved Date Abnormal glucose in , antepartum 202108/26/2022 Overview: 04/30/22: passed 3hr GTT. Vivian Lee MD Marginal insertion of umbili lisset cord affecting management of mother 03/17/2022 08/26/2022 Overview: Follow up at 28 weeks. Vivian Lee MD Family history of cleft palate 01/15/2022 0 08/26/2022 Overview: 01/16/22: FOB daughter has cleft palate Vivian Lee MD in prior preg sabiha, currently in second trimester 01/15/2022 08/26/2022 Overview: 01/16/22: previous - delivered at home in [facility]- baby after delivery, unsure cause of - pt thinks 15 yrs ago. Vivian Lee MD History of gestational diabe jose roberto in prior , currently 01/15/2022 08/26/2022 Overview: 01/16/21: diet controlled 4.5 yr ago. Vivian Lee MD documented as of this encounter (statuses as of 08/26/2022) [facility] History of Past illness Narrative* Problem Noted Date Resolved Date Abnormal glucose in , antepartum 202108/26/2022 Overview: 04/30/22: passed 3hr GTT. Vivian Lee MD Marginal insertion of umbili lisset cord affecting management of mother 03/17/2022 08/26/2022 Overview: Follow up at 28 weeks. Vivian Lee MD Family history of cleft palate 01/15/2022 0 08/26/2022 Overview: 01/16/22: FOB daughter has cleft palate Vivian Lee MD in prior preg sabiha, currently in second trimester 01/15/2022 08/26/2022 Overview: 01/16/22: previous - delivered at home in [facility]- baby after delivery, unsure cause of - pt thinks 15 yrs ago. Vivian Lee MD History of gestational diabe jose roberto in prior , currently 01/15/2022 08/26/2022 Overview: 01/16/21: diet controlled 4.5 yr ago. Vivian Lee MD documented as of this encounter (statuses as of 09/09/2022) [facility] of Past illness Narrative* Problem Noted Date Resolved Date Abnormal glucose in , antepartum 202108/26/2022 Overview: 04/30/22: passed 3hr GTT. Vivian Lee MD Marginal insertion of umbili lisset cord affecting management of mother 03/17/2022 08/26/2022 Overview: Follow up at 28 weeks. Vivian Lee MD Family history of cleft palate 01/15/2022 0 08/26/2022 Overview: 01/16/22: FOB daughter has cleft palate Vivian Lee MD in prior preg sabiha, currently in second trimester 01/15/2022 08/26/2022 Overview: 01/16/22: previous - delivered at home in [facility]- baby after delivery, unsure cause of - pt thinks 15 yrs ago. Vivian Lee MD History of gestational diabe jose roberto in prior , currently 01/15/2022 08/26/2022 Overview: 01/16/21: diet controlled 4.5 yr ago. Vivian Lee MD documented as of this encounter (statuses as of 09/09/2022) [facility] of Past illness Narrative* Problem Noted Date Resolved Date Abnormal glucose in , antepartum 202108/26/2022 Overview: 04/30/22: passed 3hr GTT. Vivian Lee MD Marginal insertion of umbili lisset cord affecting management of mother 03/17/2022 08/26/2022 Overview: Follow up at 28 weeks. Vivian Lee MD Family history of cleft palate 01/15/2022 0 08/26/2022 Overview: 01/16/22: FOB daughter has cleft palate Vivian Lee MD in prior preg sabiha, currently in second trimester 01/15/2022 08/26/2022 Overview: 01/16/22: previous - delivered at home in [facility]- baby after delivery, unsure cause of - pt thinks 15 yrs ago. Vivian Lee MD History of gestational diabe jose roberto in prior , currently 01/15/2022 08/26/2022 Overview: 01/16/21: diet controlled 4.5 yr ago. Vivian Lee MD documented as of this encounter (statuses as of 01/15/2023) [facility] History of Past illness Narrative* Problem Noted Date Diagnosed Date Resolved Date Abnormal glucose in , antepartum 04/25/2022 08/26/2022 Overview: 04/30/22: passed 3hr GTT. Vivian Lee MD Marginal insertion of umbili lisset cord affecting management of mother 03/17/2022 Overview: Follow up at 28 weeks. Vivian Lee MD Family history of cleft palate 01/15/2022 08/26/2022 Overview: 01/16/22: FOB daughter has cleft palate Vivian Lee MD in prior preg sabiha, currently in second trimester 01/15/2022 08/26/2022 Overview: 01/16/22: previous - delivered at home in [facility]- baby after delivery, unsure cause of - pt thinks 15 yrs ago. Vivian Lee MD History of gestational diabe jose roberto in prior , currently 01/15/2022 08/26/2022 Overview: 01/16/21: diet controlled 4.5 yr ago. Vivian Lee MD documented as of this encounter (statuses as of 10/17/2023) [facility] History of Past illness Narrative* Problem Noted Date Diagnosed Date Resolved Date Abnormal glucose in , antepartum 04/25/2022 08/26/2022 Overview: 04/30/22: passed 3hr GTT. Vivian Lee MD Marginal insertion of umbili lisset cord affecting management of mother 03/17/2022 Overview: Follow up at 28 weeks. Vivian Lee MD Family history of cleft palate 01/15/2022 08/26/2022 Overview: 01/16/22: FOB daughter has cleft palate Vivian Lee MD in prior preg sabiha, currently in second trimester 01/15/2022 08/26/2022 Overview: 01/16/22: previous - delivered at home in [facility]- baby after delivery, unsure cause of - pt thinks 15 yrs ago. Vivian Lee MD History of gestational diabe jose roberot in prior , currently 01/15/2022 08/26/2022 Overview: 01/16/21: diet controlled 4.5 yr ago. Vivian Lee MD documented as of this encounter (statuses as of 10/21/2023) [facility] Miscellaneous Notes* Quick Notes - Vivian Vergara MD - 04/25/2022 11:47 AM EDT DM-Pt doing well. Denies vaginal Bleeding, Leaking fluid, or regular Contractions. Pt reports good movement Physical Exam: Gen: female in no apparent distress Abd: soft, Gravid. Non tender to palpation. See flow sheet A/P: @ 27.1 weeks 1) tdap and labs today 2) growth us today- pending 3) RTO 2 wks 4) LARC- desires nexplanon Vivian Lee MD documented in this encounterK[facility]05-27[facility] History of Present illness Narrative* Sis Grady Ma - 04/25/2022 11:25 AM EDT Patient identified by name and date of . Chula Sawyer Gian presents today for a vaccination of Tdap. Patient denies an allergy to latex: yes Patient denies a severe (life-threatening) allergy to a previous dose of Tdap, DTP, DTaP, DT or Td vaccine. Yes Patient denies history of epilepsy or neurological problems: Yes Patient is afebrile and denies being moderately or severely ill: Yes Patient denies history of Guillain-[place] Syndrome (a severe paralytic illness): Yes Tdap Adacel injection was given without incident. See immunizations for details of immunizations administered today. VIS sheet provided: Yes Provider Ursula was present in office at time of injection. Sis Grady Ma documented in this encounterK[facility]05-27-2022 Instructions* Patient Instructions* Sis Grady Ma - 04/25/2022 11:15 AM EDT SEQUENTIAL SCREENINGS The [facility] offers sequential screenings for women who are interested in screenings for chromosomal abnormalities and certain defects during a . The sequential screen combinesultrasound and blood tests to determine the risk of chromosomal abnormalities, including Down's Syndrome (Trisomy 21) and Trisomy 18, as well as open neural tube defects including spina bifida. Ultrasound examination is performed between 11 weeks and 13 weeks gestational age. Blood tests are drawn after the ultrasound and again later in the between 15 and 21 weeks gestational age. Please let your physician know if you are interested in this testing. It will require an appointment withour fire range technician. This is not an ultrasound performed by a physician in our office during a routine visit. SIGNS AND SYMPTOMS OF LABOR 1. Contractions every 10 minutes or more often 2. Clear, pink, or brownish fluid (water) leaking from vagina 3. Feeling that baby is pushing down, pressure 4. Low, dull backache 5. Cramps that feel like a period 6. Cramps with or without diarrhea If you notice any of the above symptoms, contact our office at [phone] and ask to speak with anurse. After hours, you can call doctors registry at [phone] OR call [facility] at [phone] ask to have the doctor infection control rn paged. If you consider this an emergency, dial 8-3-0 or go to your nearest emergency department. NEED HELP? Are you dealing with a violent or abusive relationship? Are you a victim of rape or sexual assult? Call [facility] ([place]) 24 hour Crisis Hotline: 277.695.6303 or 291-515-7934. MANUAL Your Guide to a Healthy manual is now on-line. Visit [email or web address] to download your free copy documented in this encounterK[facility]05-16-2022 Miscellaneous Notes* Quick Notes - Vivian Vergara MD - 04/14/2022 10:56 AM EDT DM-Pt doing well. Denies vaginal Bleeding, Leaking fluid, or regular Contractions. Pt reports good movement Physical Exam: Gen: female in no apparent distress Abd: soft, Gravid. Non tender to palpation. See flow sheet A/P: @ 25.4 weeks 1) reviewed weight gain in - advised to eat lower carb and get regular exercise. Avoid sweets 2) 28 week labs ordered for next visit 3) continue ASA and iron supplement Vivian Lee MD documented in this encounterK[facility]05-16-2022 Instructions* Patient Instructions* Sis Grady Ma - 04/14/2022 10:40 AM EDT SEQUENTIAL SCREENINGS The [facility] offers sequential screenings for women who are interested in screenings for chromosomal abnormalities and certain defects during a . The sequential screen combinesultrasound and blood tests to determine the risk of chromosomal abnormalities, including Down's Syndrome (Trisomy 21) and Trisomy 18, as well as open neural tube defects including spina bifida. Ultrasound examination is performed between 11 weeks and 13 weeks gestational age. Blood tests are drawn after the ultrasound and again later in the between 15 and 21 weeks gestational age. Please let your physician know if you are interested in this testing. It will require an appointment withour fire range technician. This is not an ultrasound performed by a physician in our office during a routine visit. SIGNS AND SYMPTOMS OF LABOR 1. Contractions every 10 minutes or more often 2. Clear, pink, or brownish fluid (water) leaking from vagina 3. Feeling that baby is pushing down, pressure 4. Low, dull backache 5. Cramps that feel like a period 6. Cramps with or without diarrhea If you notice any of the above symptoms, contact our office at [phone] and ask to speak with anurse. After hours, you can call doctors registry at [phone] OR call [facility] at [phone] ask to have the doctor infection control rn paged. If you consider this an emergency, dial 9-1-1 or go to your nearest emergency department. NEED HELP? Are you dealing with a violent or abusive relationship? Are you a victim of rape or sexual assult? Call [facility] ([place]) 24 hour Crisis Hotline: 948.766.4572 or 296-253-5147. MANUAL Your Guide to a Healthy manual is now on-line. Visit [email or web address] to download your free copy documented in this encounterKet[facility]04-18-2022 Miscellaneous Notes* Quick Notes - Vivian Vergara MD - 03/17/2022 10:47 AM EDT DM-Pt doing well. Denies vaginal Bleeding, Leaking fluid, or cramping. Did not start Iron yet- is taking ASA. Physical Exam: Gen: female in no apparent distress Abd: soft, Gravid. Non tender to palpation. See flow sheet A/P: @ 21.4 weeks 1) anatomy us pending 2) RTO 4 wks 3) Continue ASA, PNV- start Iron- reordered. Vivian Lee MD documented in this encounterK[facility]04-18-2022 Instructions* Patient Instructions* Sis Liconafrederick Mcdonnell - 03/17/2022 10:18 AM EDT SEQUENTIAL SCREENINGS The [facility] offers sequential screenings for women who are interested in screenings for chromosomal abnormalities and certain defects during a . The sequential screen combinesultrasound and blood tests to determine the risk of chromosomal abnormalities, including Down's Syndrome (Trisomy 21) and Trisomy 18, as well as open neural tube defects including spina bifida. Ultrasound examination is performed between 11 weeks and 13 weeks gestational age. Blood tests are drawn after the ultrasound and again later in the between 15 and 21 weeks gestational age. Please let your physician know if you are interested in this testing. It will require an appointment withour fire range technician. This is not an ultrasound performed by a physician in our office during a routine visit. SIGNS AND SYMPTOMS OF LABOR 1. Contractions every 10 minutes or more often 2. Clear, pink, or brownish fluid (water) leaking from vagina 3. Feeling that baby is pushing down, pressure 4. Low, dull backache 5. Cramps that feel like a period 6. Cramps with or without diarrhea If you notice any of the above symptoms, contact our office at [phone] and ask to speak with anurse. After hours, you can call doctors registry at [phone] OR call [facility] at [phone] ask to have the doctor infection control rn paged. If you consider this an emergency, dial 9-1-3 or go to your nearest emergency department. NEED HELP? Are you dealing with a violent or abusive relationship? Are you a victim of rape or sexual assult? Call [facility] ([place]) 24 hour Crisis Hotline: 629.604.9847 or 151-556-4516. MANUAL Your Guide to a Healthy manual is now on-line. Visit [email or web address] to download your free copy documented in this encounterOhio [facility] Hospitalaluation [facility] note No data available for this section [facility] note* Diagnosis Anemia during in second trimester- Primary 21 weeks gestation of state, incidental documented in this encounter [facility] note* Diagnosis Marginal insertion of umbilical cord affecting management of mother- Primary documented in this encounter [facility] note* Diagnosis Anemia during in second trimester- Primary Obesity in Obesity complicating , childbirth, or the puerperium, unspecified as to episode of care or not applicable 25 weeks gestation of state, incidental documented in this encounter [facility] note* Diagnosis Encounter for supervision of other normal in second trimester- Primary 27 weeks gestation of state, incidental Need for vaccination Need for prophylactic vaccination and inoculation against unspecified single disease [facility] Diagnosis Suspected problem with growth not found- Primary 27 weeks gestation of state, incidental documented in this encounter [facility] note* Diagnosis Abnormal glucose tolerance test (GTT) during , antepartum- Primary [facility] Diagnosis Marginal insertion of umbilical cord affecting management of mother- Primary 29 weeks gestation of state, incidental documented in this encounter [facility] note* Diagnosis AMA (advanced maternal age) multigravida 35+, third trimester- Primary 31 weeks gestation of state, incidental Marginal insertion of umbilical cord affecting management of mother documented in this encounter [facility] note* Diagnosis Excessive growth affecting management of in third trimester, single or unspecified fetus- Primary AMA (advanced maternal age) multigravida 35+, third trimester 36 weeks gestation of state, incidental Vaginal irritation Unspecified noninflammatory disorder of vagina [facility] Diagnosis Uterine size date discrepancy, third trimester- Primary 36 weeks gestation of state, incidental Obesity complicating , second trimester [facility] Diagnosis Obesity in - Primary Obesity complicating , childbirth, or the puerperium, unspecified as to episode of care or not applicable AMA (advanced maternal age) multigravida 35+, third trimester [facility] Diagnosis Obesity in - Primary Obesity complicating , childbirth, or the puerperium, unspecified as to episode of care or not applicable 37 weeks gestation of state, incidental Marginal insertion of umbilical cord affecting management of mother [facility] Diagnosis Obesity in - Primary Obesity complicating , childbirth, or the puerperium, unspecified as to episode of care or not applicable AMA (advanced maternal age) multigravida 35+, third trimester 38 weeks gestation of state, incidental Marginal insertion of umbilical cord affecting management of mother [facility]* Diagnosis care and examination of lactating mother- Primary [facility]* Diagnosis care and examination- Primary Routine follow-up Encounter for screening for malignant neoplasm of cervix Screening for malignant neoplasm of the cervix Special screening examination for human papillomavirus (HPV) documented in this encounter [facility] note* Diagnosis Encounter for repeat Pap smear due to previous insufficient cervical cells- Primary Screening for malignant neoplasm of the cervix [facility] Diagnosis Nexplanon removal- Primary Surveillance of previously prescribed implantable subdermal contraceptive [facility]* Diagnosis Encounter for gynecological examination (general) (routine) without abnormal findings- Primary Generalized abdominal pain Abdominal pain, generalized Screen for STD (sexually transmitted disease) Screening examination for venereal disease Surveillance for control, oral contraceptives Surveillance of previously prescribed contraceptive pill documented in this encounter [facility] note* Diagnosis Surveillance for control, oral contraceptives Surveillance of previously prescribed contraceptive pill documented in this encounter [facility] noteNo assessment information availableWBrecksville [facility] Work Phone: Evaluation note* Diagnosis Surveillance for control, oral contraceptives Surveillance of previously prescribed contraceptive pill documented in this encounter [facility] note* Diagnosis Encounter for gynecological examination (general) (routine) without abnormal findings- Primary Surveillance for control, oral contraceptives Surveillance of previously prescribed contraceptive pill Encounter for surveillance of contraceptive pills Surveillance of previously prescribed contraceptive pill Pelvic pain documented in this encounter [facility] note* Diagnosis Pelvic pain documented in this encounter [facility] note* Diagnosis Pelvic pain- Primary Abdominal wall pain Abdominal pain, unspecified site documented in this encounter [facility] for referral (narrative)* Diagnostic Procedure Only (Routine) - Pending Review Specialty Diagnoses / Procedures Referred By Julianeac t Referred To Contact [facility] Diagnoses Marginal insertion of umbilical cord affecting management of mother Procedures OBSTETRIC ULTRASOUND WHI US PREG UTERUS AFTER 1ST TRIMEST GESTATION Vivian Sanchez MD [address] [place] [address] [place] [address] [address] [place] [address] Referral ID Status Reason Start Date Expiration Date Visits Requested Visits Authorized [id number] Pending Review Auto-Generat ed Referral 03/17/2022 03/17/2023 1 1 [facility] for referral (narrative)* Diagnostic Procedure Only (Routine) - Pending Review Specialty Diagnoses / Procedures Referred By Contac t Referred To Contact [facility] Diagnoses 31 weeks gestation of AMA (advanced maternal age) multigravida 35+, third trimester Procedures OBSTETRIC ULTRASOUND WHI US PREG UTERUS AFTER 1ST TRIMEST GESTATION Vivian Sanchez MD [address] [place] [address] [place] [address] [address] Referral ID Status Reason Start Date Expiration Date Visits Requested Visits Authorized [id number] Pending Review Auto-Generat ed Referral 05/28/2022 05/28/2023 1 1 T [facility] for referral (narrative)* Outpatient Procedure (Routine) - Pending Review Specialty Diagnoses / Procedures Referred By Contac t Referred To Contact [facility] Diagnoses Obesity in AMA (advanced maternal age) multigravida 35+, third trimester Procedures NON-STRESS TEST NON-STRESS TEST Vivian Sanchez MD [address] [place] [address] [facility] [address] [place] [address] Referral ID Status Reason Start Date Expiration Date Visits Requested Visits Authorized [id number] Pending Review Auto-Generat ed Referral 06/30/2022 06/30/2023 [facility] Outpatient Procedure (Routine) - Pending Review Specialty Diagnoses / Procedures Referred By Contac t Referred To Contact [facility] Diagnoses Nexplanon removal Procedures NEXPLANON REMOVAL REMOVAL NON-BIODEGRADABLE DRUG DELIVERY IMPLANT Claribel Hood MD [address] [place] [address] [facility] [address] [place] [address] Referral ID Status Reason Start Date Expiration Date Visits Requested Visits Authorized [id number] Pending Review Auto-Generat ed Referral 01/13/2023 01/13/2024 1 1 [facility] for visit Narrative* Financial Clearance (Routine) - Authorized Specialty Diagnoses / Procedures Referred By Contac t Referred To Contact [facility] Diagnoses . Procedures . [facility] [address] [place] [address] [place] [address] Referral ID Status Reason Start Date Expiration Date Visits Requested Visits Authorized [id number] Authorized Financial Clearance Required - Self Pay Patient Cleared - Qualified HCAP/FA Referred for SHRUTHI 4 02/13/2025 99 99 [facility] Summary Purpose Family History No Family History Records Found No data available for this section No data available for this section No Family History Records FoundNo Family History Records FoundNo Family History Records Found Advance Directives Advance Directive Response Recorded Date/ Time Living Will No March 22, 2024 2:18pm Power of Assembly Room Supervisor No March 22 2:18pm Chief Complaint and Reason for Visit Chief Complaint S/S, PAIN Additional Source Comments INFORMATION SOURCE (unrecogn ized section and content) DATE CREATED AUTHOR 05/26/[address] [facility] [place] DATE CREATED AUTHOR AUTHOR'S ORGANIZ ATION 03/25/2024 [facility] DATE CREATED AUTHOR AUTHOR'S ORGANIZ ATION 03/29/2024 [facility] DATE CREATED AUTHOR AUTHOR'S ORGANIZ ATION 02/07/2025 [facility] Source Comments (unrecognize d section and content) In the event this informatio n is protected by the Federal Confidentiality of Alcohol and Drug Abuse Patient Records regulations: The Federal rules restrict any use of the information to criminally investigate or prosecute any alcohol or drug abuse patient.[facility] the event this information is protected by the Federal Confidentiality of Alcohol and Drug Abuse Patient Records regulations: The Federal rules restrict any use of the information to criminally investigate or prosecute any alcohol or drug abuse patient.[facility] the event this information is protected by the Federal Confidentiality of Alcohol and Drug Abuse Patient Records regulations: The Federal rules restrict any use of the information to criminally investigate or prosecute any alcohol or drug abuse patient.[facility] Center[facility] the event this information is protected by the Federal Confidentiality of Alcohol and Drug Abuse Patient Records regulations: The Federal rules restrict any use of the information to criminally investigate or prosecute any alcohol or drug abuse patient.[facility] Center[facility] the event this information is protected by the Federal Confidentiality of Alcohol and Drug Abuse Patient Records regulations: The Federal rules restrict any use of the information to criminally investigate or prosecute any alcohol or drug abuse patient.[facility] the event this information is protected by the Federal Confidentiality of Alcohol and Drug Abuse Patient Records regulations: The Federal rules restrict any use of the information to criminally investigate or prosecute any alcohol or drug abuse patient.[facility] Center[facility] the event this information is protected by the Federal Confidentiality of Alcohol and Drug Abuse Patient Records regulations: The Federal rules restrict any use of the information to criminally investigate or prosecute any alcohol or drug abuse patient.[facility] Center[facility] the event this information is protected by the Federal Confidentiality of Alcohol and Drug Abuse Patient Records regulations: The Federal rules restrict any use of the information to criminally investigate or prosecute any alcohol or drug abuse patient.[facility] Center[facility] the event this information is protected by the Federal Confidentiality of Alcohol and Drug Abuse Patient Records regulations: The Federal rules restrict any use of the information to criminally investigate or prosecute any alcohol or drug abuse patient.[facility] Center[facility] the event this information is protected by the Federal Confidentiality of Alcohol and Drug Abuse Patient Records regulations: The Federal rules restrict any use of the information to criminally investigate or prosecute any alcohol or drug abuse patient.[facility] Center[facility] the event this information is protected by the Federal Confidentiality of Alcohol and Drug Abuse Patient Records regulations: The Federal rules restrict any use of the information to criminally investigate or prosecute any alcohol or drug abuse patient.[facility] Center[facility] the event this information is protected by the Federal Confidentiality of Alcohol and Drug Abuse Patient Records regulations: The Federal rules restrict any use of the information to criminally investigate or prosecute any alcohol or drug abuse patient.[facility] Center[facility] the event this information is protected by the Federal Confidentiality of Alcohol and Drug Abuse Patient Records regulations: The Federal rules restrict any use of the information to criminally investigate or prosecute any alcohol or drug abuse patient.[facility] Center[facility] the event this information is protected by the Federal Confidentiality of Alcohol and Drug Abuse Patient Records regulations: The Federal rules restrict any use of the information to criminally investigate or prosecute any alcohol or drug abuse patient.[facility] Center[facility] the event this information is protected by the Federal Confidentiality of Alcohol and Drug Abuse Patient Records regulations: The Federal rules restrict any use of the information to criminally investigate or prosecute any alcohol or drug abuse patient.[facility] Center[facility] the event this information is protected by the Federal Confidentiality of Alcohol and Drug Abuse Patient Records regulations: The Federal rules restrict any use of the information to criminally investigate or prosecute any alcohol or drug abuse patient.[facility] CenterIn the event this information is protected by the Federal Confidentiality of Alcohol and Drug Abuse Patient Records regulations: The Federal rules restrict any use of the information to criminally investigate or prosecute any alcohol or drug abuse patient.[facility] Center[facility] the event this information is protected by the Federal Confidentiality of Alcohol and Drug Abuse Patient Records regulations: The Federal rules restrict any use of the information to criminally investigate or prosecute any alcohol or drug abuse patient.[facility] CenterIn the event this information is protected by the Federal Confidentiality of Alcohol and Drug Abuse Patient Records regulations: The Federal rules restrict any use of the information to criminally investigate or prosecute any alcohol or drug abuse patient.[facility] CenterIn the event this information is protected by the Federal Confidentiality of Alcohol and Drug Abuse Patient Records regulations: The Federal rules restrict any use of the information to criminally investigate or prosecute any alcohol or drug abuse patient.[facility] CenterIn the event this information is protected by the Federal Confidentiality of Alcohol and Drug Abuse Patient Records regulations: The Federal rules restrict any use of the information to criminally investigate or prosecute any alcohol or drug abuse patient.[facility] CenterIn the event this information is protected by the Federal Confidentiality of Alcohol and Drug Abuse Patient Records regulations: The Federal rules restrict any use of the information to criminally investigate or prosecute any alcohol or drug abuse patient.[facility] CenterIn the event this information is protected by the Federal Confidentiality of Alcohol and Drug Abuse Patient Records regulations: The Federal rules restrict any use of the information to criminally investigate or prosecute any alcohol or drug abuse patient.[facility] CenterIn the event this information is protected by the Federal Confidentiality of Alcohol and Drug Abuse Patient Records regulations: The Federal rules restrict any use of the information to criminally investigate or prosecute any alcohol or drug abuse patient.[facility] CenterIn the event this information is protected by the Federal Confidentiality of Alcohol and Drug Abuse Patient Records regulations: The Federal rules restrict any use of the information to criminally investigate or prosecute any alcohol or drug abuse patient.[facility] CenterIn the event this information is protected by the Federal Confidentiality of Alcohol and Drug Abuse Patient Records regulations: The Federal rules restrict any use of the information to criminally investigate or prosecute any alcohol or drug abuse patient.[facility] Reason for Visit (unrecogniz ed section and content) 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 Specialty Diagnoses / Procedures Referred By Contac t Referred To Contact [facility] Diagnoses Financial Clearance Procedures Financial Clearance Self 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 [employer] [address] [place] [address] Referral ID Status Reason Start Date Expiration Date Visits Requested Visits Authorized [id number] Authorized Financial Clearance Required - Self Pay Patient Cleared - Qualified HCAP/501/FA 07/18/2022 10/16/2022 99 99 Reason Comments US Specialty Diagnoses / Procedures Referred By Contac t Referred To Contact [facility] Diagnoses OB Procedures OB Vivian Sanchez MD [address] [place] [address] 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 [employer] [address] [place] [address] Referral ID Status Reason Start Date Expiration Date Visits Requested Visits Authorized [id number] Authorized Financial Clearance Required - Self Pay Patient Cleared - Qualified HCAP/501/FA 04/14/2022 07/13/2022 99 99 Reason Onset Date Comments Care 06/30/2022 Reason Onset Date Comments Care 05/14/2022 Reason Onset Date Comments Care 04/14/2022 Specialty Diagnoses / Procedures Referred By Contac t Referred To Contact [facility] Diagnoses 1st ob visit Procedures care Self [facility] [address] [place] [address] Referral ID Status Reason Start Date Expiration Date V isits Requested Visits Authorized [id number] Closed Financial Clearance Required - Self Pay Patient Cleared - Qualified HCAP/501/FA 12/20/2021 03/20/2022 99 99 Reason Onset Date Comments Care 03/17/2022 Referral ID Status Reason Start Date Expiration Date Visits Requested Visits Authorized [id number] Authorized Financial Clearance Required - Self Pay Patient Cleared - Qualified HCAP/501/FA 12/20/2021 03/20/2022 99 99 Reason Onset Date Comments Care 04/25/2022 Reason Comments abnormal glucose Reason Onset Date Comments Care 05/28/2022 Specialty Diagnoses / Procedures Referred By Contac t Referred To Contact [facility] Diagnoses OB Procedures OB Vivian Sanchez MD [address] [place] [address] 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 [employer] [address] [place] [address] Reason Comments Results Appointment Reason Onset Date Comments Care 07/07/2022 Reason Onset Date Comments Care 07/15/2022 Specialty Diagnoses / Procedures Referred By Julianeac t Referred To Contact [facility] Diagnoses Obesity in AMA (advanced maternal age) multigravida 35+, third trimester Procedures NON-STRESS TEST NON-STRESS TEST Vivian Sanchez MD [address] [place] [address] [facility] [address] [place] [address] Referral ID Status Reason Start Date Expiration Date Visits Requested Visits Authorized [id number] Pending Review Auto-Generat ed Referral 06/30/2022 06/30/2023 3 3 Reason Comments Ob Delivery Note Specialty Diagnoses / Procedures Referred By Contaakash t Referred To Contact [facility] Diagnoses Financial Clearance Procedures Financial Clearance MD Bg 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 [employer] [address] [place] [address] Reason Comments Routine Reason Onset Date Comments Future Appointment 09/05/2022 Needs Financi al Clearance Reason Comments Patient Question Appointment Reason Comments Yearly Exam Specialty Diagnoses / Procedures Referred By Contac t Referred To Contact [facility] Diagnoses annual exam with pap 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 Procedures . [place] [id number] [place] [id number] Referral ID Status Reason Start Date Expiration Date Visits Requested Visits Authorized [id number] Authorized Financial Clearance Required - Self Pay Patient Cleared - Qualified HCAP/FA Referred for SHRUTHI 4 02/13/2025 99 99 Reason Comments Follow Up Specialty Diagnoses / Procedures Referred By Glo hernandez Referred To Contact [facility] Diagnoses . Procedures . [place] [id number] Referral ID Status Reason Start Date Expiration Date Visits Requested Visits Authorized [id number] Authorized Financial Clearance Required - Self Pay Patient Cleared - Qualified HCAP/FA Referred for SHRUTHI 4 02/13/2025 99 99 Care Teams (unrecognized sec tion and content) Keyboard Specialist Relationship Specialty Start Date [place] [address] PCP - General Family Practice 02/03/18 Keyboard Specialist Relationship Specialty Start Date [place] [address] PCP - General Family Practice 02/03/18 Keyboard Specialist Relationship Specialty Start Date [place] [address] PCP - General Family Practice 02/03/18 Keyboard Specialist Relationship Specialty Start Date [place] [address] PCP - General Family Practice 02/03/18 Keyboard Specialist Relationship Specialty Start Date End [place] [place] [address] PCP - General Family Practice 02/03/18 Keyboard Specialist Relationship Specialty Start Date End Date Phill Sibley [facility] [place] [address] PCP - General Family Practice 02/03/18 Keyboard Specialist Relationship Specialty Start Date End Date Phill Sibley [facility] [place] [address] PCP - General Family Practice 02/03/18 Keyboard Specialist Relationship Specialty Start Date [place] [address] PCP - General Family Practice 02/03/18 Keyboard Specialist Relationship Specialty Start Date End Date Phill Sibley [facility] [place] [address] PCP - General Family Practice 02/03/18 Keyboard Specialist Relationship Specialty Start Date End Date Phill Sibley [facility] [place] [address] PCP - General Family Practice 02/03/18 Keyboard Specialist Relationship Specialty Start Date End [place] [address] PCP - General Family Practice 02/03/18 Keyboard Specialist Relationship Specialty Start Date End Date Phill Sibley [facility] [place] [address] PCP - General Family Medicine 02/03/18 Keyboard Specialist Relationship Specialty Start Date End Date Phill Sibley [facility] [place] [address] PCP - General Family Medicine 02/03/18 Keyboard Specialist Relationship Specialty Start Date End Date Phill Sibley [address] [facility] [place] [address] PCP - General Family Medicine 02/03/18 Keyboard Specialist Relationship Specialty Start Date End Date Phill Sibley [address] [facility] [place] [address] PCP - General Family Medicine 02/03/18 Keyboard Specialist Relationship Specialty Start Date End Date Phill Sibley [address] [facility] [place] [address] PCP - General Family Medicine 02/03/18 Keyboard Specialist Relationship Specialty Start Date End Date Phill Sibley [facility] [place] [address] PCP - General Family Medicine 02/03/18 Team Status: Inactive Member Role Status Dates Dr. Edu Vargas , DO Emergency Provider Active Keyboard Specialist Relationship Specialty Start Date End Date Phill Sibley CNP [facility] [place] [address] PCP - General Family Medicine 02/03/18 Keyboard Specialist Relationship Specialty Start Date End Date Phill Sibley CNP [facility] [facility] [place] [address] PCP - General Family Medicine 02/03/18 Keyboard Specialist Relationship Specialty Start Date End Date Phill Sibley CNP [facility] [facility] [place] [address] PCP - General Family Medicine 02/03/18 Keyboard Specialist Relationship Specialty Start Date End Date Phill Sibley CNP [facility] [place] [address] PCP - General Family Medicine 02/03/18 Keyboard Specialist Relationship Specialty Start Date End Date Phill Sibley CNP [address] [place] [address] PCP - General Family Medicine 02/03/18 Goals (unrecognized section and content) Goals may be documented in a n alternate section FOR RECORDS PERTAINING TO PATIENTS WHO ARE OR HAVE BEEN ENROLLED IN A CHEMICAL DEPENDENCY/SUBSTANCEABUSE PROGRAM, SOME INFORMATION MAY BE OMITTED. This clinical summary was aggregated from multiple sources. Caution should be exercised in using it in the provision of clinical care. This summary normalizes information from multiple sources, and as a consequence, information in this document may materially change the coding, format and clinical context of patient data. In addition, data may be omitted in some cases. CLINICAL DECISIONS SHOULD BE BASED ON THE PRIMARY CLINICAL RECORDS. [facility] [employer] provides no warranty or guarantee of the accuracy or completeness of information in this document.
[2025-10-21 16:13] VITALS: BP 130/77; PULSE 81; RESP 16; TEMP 36.6; O2SAT 100
== END 2025-10-21 16:13 | disposition home or self-care (01) ==
PROVIDERS: Emergency Provider Student in an Organized Health Care Education/Training Program; Visit Provider Student in an Organized Health Care Education/Training Program
DX: M79.601 Pain in right arm (principal)
CPT/HCPCS: 99283